=== PATIENT | female | born 1995 | race Caucasian/White ===

== ENCOUNTER 2024-08-29 08:58 | Outpatient (CLI) | payer OTHER, SELFPAY ==
--- NOTE | ~2024-08-29 | US_ITS ---
EXAMINATION: US venous doppler LE RT DATE: 08/29/2024 09:41 INDICATION: Right lower extremity edema TECHNIQUE: Grayscale ultrasound images without and with compression and Doppler ultrasound images of the right lower extremity veins were obtained. COMPARISON: None. FINDINGS: The visualized portions of right common femoral vein, profunda (deep) femoral vein, femoral vein, pop liteal vein, peroneal veins, posterior tibial veins, and greater saphenous vein outflow are patent. IMPRESSION: 1. No deep venous thrombosis within the right lower extremity as detailed above. Reviewed, dictated and finalized at location A. TYPESETTER IMPRESSION: 1. No deep venous thrombosis within the right lower extremity as detailed mita suero
--- OUTSIDE RECORDS SUMMARY | 2024-08-29 09:49 | XMS_ITS | Data Portability ---
Author Organization [facility] [place] Address [address] [place] [address] [place] [address] Care Team Providers Care [employer] Name Role Phone DAVID BIRMINGHAM Primary Care Provider Assessment Encounter Date Assessment Date Assessment LastModified by Organization Details LastModified Time 07/31/2024 07/31/2024 Patient is ___weeks . Discussed plan. Not available 07/31/2024 15:57:20 08/28/2024 08/28/2024 Patient is ___weeks . Discussed plan. Not available 08/28/2024 14:50:07 Plan of Treatment Reminders Order Date Submit Date Provider Last Modified By Organization Details Last Modified Time Details Appointments OB ROUTINE 2024 01:00P Rajan LEROY MD Not available Not available Not available Lab None recorded. Referral None recorded. Procedures None recorded. Surgeries None recorded. Imaging US, obstetric , follow-up 2024 025 [email or web address] [email or web address] [place] [facility] [place][note 2] [address], [address], [place], [address], 08/28/2024 21:14:59 US, obstetric , 2nd or 3rd trimester 2024 025 [email or web address] [email or web address] [place], [facility] [place]note 2] [address], [address], [place], [address], 08/02/2024 08:27:19 Medication Orders None recorded. Patient TargetsNo targets recorded. Patient InstructionsNo instructions recorded. Reason for Referral None Reported. Results Created Date Observation Date Name Description Value Unit Range Abnormal Flag Note LastModifiedBy Organization Detail LastModifiedTime 07/07/19 25 07/07/2024 US, obste tric, limit ed No observ ation record ed. [email or web address] [address], [place], [address], 07/08/2024 13:03:51 07/07/19 25 07/07/2024 US, obste tric, limit ed No observ ation record ed. [facility] [address], [place], [address], 07/07/2024 17:07:07 07/31/19 25 07/31/2024 US, obste tric, 2nd or 3rd trime ster No observ ation record ed. [address], [place], [address], 07/31/2024 17:58:51 07/31/19 25 07/31/2024 US, obste tric, follo w-up No observ ation record ed. [email or web address] [address], [place], [address], 08/04/2024 13:23:55 08/28/19 25 08/28/2024 US, obste tric, follo w-up No observ ation record ed. [address], [place], [address], 08/28/2024 18:29:50 08/28/19 25 08/28/2024 US, obste tric, follo w-up No observ ation record ed. [email or web address] [address], [place], [address], 08/28/2024 20:57:32 08/28/19 25 08/28/2024 US, obste tric, follo w-up No observ ation record ed. [email or web address] [address], [place], [address], 08/28/2024 22:50:03 Result Notes None recorded. Problems Name Problem SNOMED Code Status Onset Date Resolution Date Notes Provider Name and Address Organization Details Recorded Time 86901490 Active [address] [facility] 4 16:57:16 Acid reflux 408320421 Active Niranjan Leroy MD [address], [place], [address], [facility] 5 16:31:38 Marginal insertion of umbilical cord 04952139 Active serial growth Mahogany Jimenez [facility] 5 13:23:27 Edema of lower extremity 114869035 Active UNILATERA L, RIGHT SIDE Order faxed to Trey for Rpt venous doppler 08/28 scheduled Trey 08/29 09 referral faxed to [facility] 08/[address] [facility] 5 16:43:33 Problem Notes None recorded. Procedures Surgical History Date Name Laterality Status Provider Name and Address Organization Details Recorded Time 10/08/19 24 Date of Last Pap Smear completed [facility] 05/12/2024 13:54:02 11/05/19 21 Laparoscopy completed [facility] 12/11/2020 19:21:46 04/04/20 20 Dilation and Curettage completed [facility] 12/11/2020 19:21:22 08/05/19 19 extraction of wisdom tooth completed [facility] 12/11/2020 19:21:03 Imaging Results Imaging Date Name Status LastModified by Organiz ation Details LastModified Time 07/07/2024 US, obstetric, limited completed [email or web address] [address], [place], [address], 07/08/2024 13:03:51 07/07/2024 [facility], [facility] [address], [place], [address], 07/07/2024 17:07:07 07/31/2024 US, obstetric, 2nd or 3rd trimester completed [email or web address] [place] [address], [place], [address], 07/31/2024 17:58:51 07/31/2024 US, obstetric, follow-up completed [email or web address] [address], [place], [address], 08/04/2024 13:23:55 08/28/2024 US, obstetric, follow-up completed [email or web address] [place] [address], [place], [address], 08/28/2024 18:29:50 08/28/2024 US, obstetric, follow-up active [email or web address] [address], [place], [address], 08/28/2024 20:57:32 08/28/2024 US, obstetric, follow-up completed [email or web address] [address], [place], [address], 08/28/2024 22:50:03 Procedure Notes None recorded. Medical Equipment None Reported. Allergies No known drug allergies Medications Name Sig Start Date Stop Date Status Note LastModified by Organization Details LastModified Time cephalexin 250 mg capsule 07/07 completed Not Available Not Available Not Available hydrocodone 5 mg-acetamino phen 325 mg tablet TAKE 1 TABLET BY MOUTH EVERY 6 HOURS NEEDED FOR PAIN 03/25 completed Not Available Not Available Not Available acetaminophe n 500 mg tablet TAKE 2 TABLETS (1,000 MG TOTAL) BY MOUTH EVERY 6 (SIX) HOURS NEEDED. 03/25 completed Not Available Not Available Not Available buspirone 10 mg tablet 07/07 completed Not Available Not Available Not Available bupropion HCl 75 mg tablet TAKE 1 TABLET BY MOUTH EVERY DAY 07/07 completed Not Available Not Available Not Available ibuprofen 600 mg tablet TAKE 1 TABLET BY MOUTH EVERY 6 HOURS NEEDED 03/25 completed Not Available Not Available Not Available methylpredni solone 4 mg tablets in a dose pack 07/07 completed Not Available Not Available Not Available ondansetron 4 mg disintegrati ng tablet 07/07 completed Not Available Not Available Not Available buspirone 15 mg tablet TAKE 1/2 TABLET(S ) BY MOUTH THREE TIMES A DAY NEEDED 07/07 completed Not Available Not Available Not Available bupropion HCl XL 150 mg 24 hr tablet, extended release TAKE 1 TABLET(S ) ORAL EVERY DAY 03/25 completed Not Available Not Available Not Available 07/24 (28) 1 mg-20 mcg (21)/75 mg (7) tablet TAKE 1 TABLET BY MOUTH EVERY DAY 07/07 completed Not Available Not Available Not Available Colace active Not Available Not Availa ble Not Available active Not Available Not Avai lable Not Available bupropion HCl 03/25 completed Not Available Not Available Not Available Vitals Date Recorded Body weight Systolic blood pressure Diastolic blood pressure Provider Name and Address Organization Details Last Updated DateTime 07/31/2024 64115.4418 6 g 114 mm[Hg] 73 mm[Hg] [facility] 07/31/2024 15:58:25 Date Recorded Body weight Systolic blood pressure Diastolic blood pressure Provider Name and Address Organization Details Last Updated DateTime 08/15/2024 17826.8113 4 g 131 mm[Hg] 79 mm[Hg] [facility] 08/15/2024 11:39:29 Date Recorded Body weight Systolic blood pressure Diastolic blood pressure Provider Name and Address Organization Details Last Updated DateTime 08/28/2024 46625.9960 8 g 116 mm[Hg] 78 mm[Hg] [facility] 08/28/2024 14:50:59 Social History Question Answer Notes LastModified by Organizat ion Details LastModified Time Tobacco Smoking Status Current Every Day Smoker Scarlet Beltran [facility] 03/25/2021 10:37:51 Do You Have An Advance Directive? No [email or web address] Information not available 05/12/2024 What Is Your Level Of Alcohol Consumption? Occasional [email or web address] Information not available 12/11/2020 If You Are , What Was Your Level Of Alcohol Consumption Prior To ? None [email or web address] Information not available 03/25/2021 How Many Years Have You Consumed Alcohol? 7 Information not available 10/08/2023 Are You Blind Or Do You Have Difficulty Seeing? No [email or web address] Information not available 12/11/2020 What Is Your Level Of Caffeine Consumption? Occasional [email or web address] Information not available 12/11/2020 In The 14 Days Before Symptom Onset, Have You Had Close Contact With A Laboratory-confir med COVID-19 While That Case Was Ill? No [email or web address] Information not available 12/11/2020 In The 14 Days Before Symptom Onset, Have You Had Close Contact With A Person Who Is Under Investigation For COVID-19 While That Person Was Ill? No [email or web address] Information not available 12/11/2020 Have You Been To An Area Known To Be High Risk For COVID-19? No [email or web address] Information not available 12/11/2020 Are You Deaf Or Do You Have Serious Difficulty Hearing? No Information not available 12/11/2020 What Type Of Diet Are You Following? REGULAR [email or web address] Information not available 12/11/2020 Do You Or Have You Ever Used E-cigarettes Or Vape? Current User Of Electronic Cigarettes [email or web address] Information not available 03/25/2021 What Is The Highest Grade Or Level Of School You Have Completed Or The Highest Degree You Have Received? 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 No Information not available 10/08/2023 Have You Ever Been Counseled For Unhealthy Alcohol Use? No [email or web address] Information not available 03/25/2021 Do You Use Protection During Sex? No [email or web address] Information not available 03/25/2021 Do You Use Your Seat Belt Or Car Seat Routinely? Yes [email or web address] Information not available 12/11/2020 Do You Have Smoke And Carbon Monoxide Detectors In Your Home? Yes [email or web address] Information not available 12/11/2020 At What Age Did You Start Smoking Tobacco? 16 Information not available 10/08/2023 Do You Or Have You Ever Used Smokeless Tobacco? Never Used Smokeless Tobacco [email or web address] Information not available 03/25/2021 How Much Tobacco Do You Smoke? 0.5 PPD Information not available 10/08/2023 Do You Feel Stressed (tense, Restless, Nervous, Or Anxious, Or Unable To Sleep At Night)? [id number] Information not available 10/08/2023 Do You Use Any Illicit Or Recreational Drugs? No [email or web address] Information not available 12/11/2020 Do You Use Sunscreen Routinely? Yes [email or web address] Information not available 12/11/2020 Has Tobacco Cessation Counseling Been Provided? No [email or web address] Information not available 03/25/2021 Have You Used IV Drugs? No [email or web address] Information not available 03/25/2021 Do You Or Have You Ever Used Any Other Forms Of Tobacco Or Nicotine? Yes [email or web address] Information not available 03/25/2021 Sex: Unknown Functional Status Question Answer Note LastModified by Organizat ion Details LastModified Time Do you have difficulty walking or climbing stairs? No Information not available 07/07/2022 Are you able to walk? YESWOREST [email or web address] Information not available 12/11/2020 Are you able to care for yourself? Yes Information not available 07/07/2022 Do you have difficulty dressing or bathing? No Information not available 07/07/2022 What is your exercise level? Occasional [email or web address] Information not available 12/11/2020 Mental Status None recorded. Family History Relationship Description Onset Age of this Age Resolved Age Notes LastModified by Organization Details LastModified Time Maternal Grandmother Malignant tumor of colon age unsure [email or web address] Not available 12/11/2020 19:14:43 Maternal Grandmother Diabetes mellitus [email or web address] Not available 12/11 19:18:00 Paternal Uncle Diabetes mellitus [email or web address] Not available 12/11 19:18:11 Paternal Uncle Marc lynne Not available 2023 15:41:43 Mother Anxiety disorder [email or web address] Not available 12/11 19:19:14 Mother Depressive disorder [email or web address] Not available 12/11 19:19:19 Maternal Aunt Multiple sclerosis [email or web address] Not available 12/11 19:19:37 Medical History Condition Response Allergies (Food, seasonal, environmental ) N Other Y Breast Cancer N Drug/Latex Allergies/Reactions N Blood Transfusion N Dermatologic Disorders N Lung Disease N Defects or Inherited Disease N Breast Problem N Gestational Diabetes N Hematologic disorders N Anesthesia Complications N History of STI N Deep Vein Thrombosis N Polycystic ovary syndrome N Anxiety Disorder Y Autoimmune disease N Arthritis N Infertility N Polyps N Acid Reflux (GERD) N History of abnormal pap N Cancer N Stroke N Varicosities N Neurologic/Epilepsy N Endometriosis N High Cholesterol N Headaches N Fibromyalgia N Kidney Disease N Heart Problems N Kidney or Bladder Problems N Thyroid Problems N GI Problems N Eating Disorder N Anemia N Art (IVF or FET) N Psychiatric Illness N Ovarian Cancer N Diabetes N Pulmonary (TB, Asthma) N Hepatitis/Liver Disease N No Past Medical History N Eczema N Urinary Tract Infection N Abuse/Domestic Violence N Asthma N Trauma/Violence N Depression/ depression Y Heart Disease N Pre-Eclampsia N Hypertension N Osteoporosis N Thrombophilias N Gynecological History Statement/Question Response Date of Last Mammogram Flow Moderate Date of LMP 03/20/2024 On BCP's at Conception? N Was last menstrual period normal Y STIs/STDs N HPV Vaccine Y Duration of Flow (days) 3 Current Control Method Are cycles usually normal Y Frequency of Cycle (Q days) 27 Sexually Active? Y Menses Monthly Y Age of first menstrual cycle 13 Date of Last Pap Smear 10/08/2023 Sexual Problems? N Desired Control Method LMP Definite Obstetrics History GPAL:G 3 P 0 0 2 0 Type Value Spontaneous 1 Living 0 Ectopics 1 Total 3 Past Encounters Encounter ID Performer Location Encounter Start Date Encounter Closed Date Diagnosis/Indication Diagnosis SNOMED-CT Code Diagnosis ICD10 Code Diagnosis Note [id number] Karie Cerda Agata [facility] [address],[place] [address] 12/11/2020 15:03:37 12/11/2020 16:52:07 Contraception care management 949396511 Z30.9 [id number] Karie Cerda Agata [facility] [address],[place] [address] 03/25/2021 10:29:58 03/25/2021 12:03:09 Contraception care management 622299300 Z30.9 [id number] Ema Goldstein [facility] [address],[place] [address] 07/07/2022 14:52:06 07/07/2022 15:47:35 Pain in pelvis 11234361 R10.2 Today we reviewed the various causes of pelvic pain in-depthUP T (-) todayUA WNLCurrent ly on her periodBhcg orderedPel odin u/s orderedWe discussed her hx of ectopic, need to have bhcg done today to confirm (-) UPTPatient agrees to this plan. Strict ED precaution s discussed (worsening pains, heavy vaginal bleeding, flu-like symptoms, etc). Her pain is minimal right now, no acute distress.W ill update patient with bhcg result when available tomorrowRT C for pelvic u/s and f/u appointmen t Time spent in visit is a total of 25 mins with at least 50% of visit consisting of counseling and review of plan of care. Venereal d isease screening 127282564 Z11.3 [id number] [facility] [address],[place] [address] 07/20/2022 14:01:43 07/20/2022 14:44:39 Pain in pelvis 23105959 R10.2 [id number] Ema Goldstein [facility] [place] [address],[place] [address] 07/27/2022 14:25:22 07/27/2022 16:10:45 Pain in pelvis 45595199 R10.2 Today we reviewed recent TVUS - normalPelv ic pain has mostly resolved. We discussed BC options in-depth. Declines at this time. Meghan gray TTC in the near future. Encouraged daily PNV.We discussed hx of endometrio sis, offered MD consult. Declined at this timeShe will notify the office if she changes her mind and desires BC or MD consultSta rt daily PNVRTC for WWE or sooner if needed Time spent in visit is a total of 15 mins with at least 50% of visit consisting of counseling and review of plan of care. [id number] CHINA Hatfield [place] [address] [address] 10/08/2023 12:02:18 10/08/2023 14:40:15 Gynecologic examination 37434478 Z01.419 WWEpap updateddec lined STI screenenco uraged annual exam with PCP Take Calcium with Vitamin D daily if not receiving in daily diet.It is strongly advised to have an annual flu shot and up can obtain at most pharmacies . If you have not had a TDap shot in the last 10 years you should obtain one as well. Discussed with patient & provided with informatio n regarding Gardisil vaccine to prevent the 4 strains for HPV that cause cervical cancer if under age 26. Encourage safe sexual practices, to use condoms and limit partners if not already in a monogamous relationsh ip.Do monthly self breast exams. BRCA testing is now available for patients with strong genetic history of female cancer. If interested contact the office. Engage in regular exercise. Avoid tobacco and illicit drugs. This lifestyle behavior pattern will lead to less health conditions and longer life span. If BMI greater than 25 dietary consult advised. Patient received above instructio ns, and questions have been answered. If you have any questions please call or respond to this email. Patient was made aware of the patient portal and may obtain a paper copy of today's plan if desired. Breast lump 62067769 N63 .0 left breast u/s order given to pt [id number] Marjorie Fernandez [place] [address] [address] 04/28/2024 12:32:47 05/01/2024 10:14:42 Uncertain viability of 426910068 O36.80X9 Z3A.01 [id number] [facility] [address],[place] [address] 05/12/2024 14:19:40 05/12/2024 14:50:39 [id number] [facility] [address],[place] [address] 05/12/2024 14:19:54 05/12/2024 16:59:32 Venereal disease screening 440591770 Z11.3 Amenorrhea 63174626 N91. 2 [id number] [facility] [address],[place] [address] 06/06/2024 15:41:35 06/06/2024 16:42:54 screening 002482540 Z36.82 Z3A.11 [id number] HEATH SUN MD [place] [address],[place] [address] 06/06/2024 15:42:31 06/06/2024 18:21:27 Routine care 670526044 Z34.90 [id number] Niranjan Leroy MD [place] [address],[place] [address] 07/07/2024 11:41:25 07/07/2024 13:16:11 Routine care 667561716 Z34.90 [id number] Marjorie [facility] [address],[place] [address] 07/07/2024 11:53:34 07/07/2024 13:36:31 Abdominal pain in 123783880 O99.891 Z3A.15 [id number] [facility] [address],[place] [address] 07/31/2024 14:27:44 07/31/2024 15:45:54 screening for malformation 668191102 Z36.3 Z3A.19 [id number] Niranjan Leroy MD [place] [address],[place] [address] 07/31/2024 14:28:07 07/31/2024 16:41:53 Routine care 668466470 Z34.90 [id number] Niranjan Leroy MD [place] [address],[facility] [place] [address] 08/15/2024 10:56:59 08/15/2024 12:29:56 Routine care 193271540 Z34.90 [id number] Mayra Villagomez [place] [address],[facility] [place] [address] 08/28/2024 13:50:38 08/28/2024 14:33:47 Placental condition affecting management of mother 302529729 O43.102 Z36.2 Z3A.23 [id number] Niranjan Leroy MD [place] [address],[place] [address] 08/28/2024 13:51:41 08/28/2024 15:28:10 Routine care 289991661 Z34.90 Health Concerns Section Related Observation LastModified by Organization Detai ls LastModified Time None Recorded Concern Status LastModified by Organization Details LastModified Time None Recorded Advance Directives Directive N: Payers Encounter Date Sequence Insurance Name Policy Number Policy Corona Covered Member ID Corona Member ID Guarantor Name 07/31/2024 1 [facility] [employer] [employer] Gerri Loaiza [id number] OI Gerri Loaiza 07/31/2024 1 [facility] [employer] Gerri Loaiza [id number] OI Gerri Loaiza 08/15/2024 1 [facility] [employer] Gerri Loaiza [id number] OI Gerri Loaiza 08/28/2024 1 [facility] [employer] Gerri Loaiza [id number] OI Gerri Loaiza 08/28/2024 1 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 12/12/19 21 1 CLOSED Fetus Data First Name Last Name Admitted to NICU Weight (g) Sex Living Outcome Pediatric Complications Fetus ID Race Codes Race Delivery Type , Spontane ous [id number] Mack Calculation Initial Mack Date Initial Exam Date Initial Exam Provider Initial Ultrasound Date Last Menstrual Period Date Ultra Sound Weeks Gestation 0 Eighteen To Twenty Week Mack Update Ultra Sound Date Fundal Height At Umbil Quickening Date Ultra Sound Latest Weeks Gestation Final Mack Confirmed By Final Mack Confirmed Date Final Mack Date Ultra Sound Latest Days Gestation 0 0 Menstrual History Last Menstrual Date Menses Monthly On Bcp Conception Prior Menses Frequency Hcg Plus Date Menarche Onset Age Delivery Information Delivery Date Delivery Type Labor Anesthesia Weeks Gestation Incision Type Labor Labor Length Hrs Delivered By Post Complications Tubal Sterilization Discharge Date Comments 0 Discharge Information Feeding Method Contraceptive Method Maternal HG B and HCT Levels Ob Episode Information Episode Created Date Number of Fetuses Patient Bloodtype Patient rh Status Prepregnancy Weight lbs Domestic Partner Domestic Partner Phone Father Name [employer] 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 Status 12/12/19 21 1 CLOSED Fetus Data First Name Last Name Admitted to NICU Weight (g) Sex Living Outcome Pediatric Complications Fetus ID Race Codes Race Delivery Type Ectopic [id number] Mack Calculation Initial Mack Date Initial Exam Date Initial Exam Provider Initial Ultrasound Date Last Menstrual Period Date Ultra Sound Weeks Gestation 0 Eighteen To Twenty Week Mack Update Ultra Sound Date Fundal Height At Umbil Quickening Date Ultra Sound Latest Weeks Gestation Final Mack Confirmed By Final Mack Confirmed Date Final Mack Date Ultra Sound Latest Days Gestation 0 0 Menstrual History Last Menstrual Date Menses Monthly On Bcp Conception Prior Menses Frequency Hcg Plus Date Menarche Onset Age Delivery Information Delivery Date Delivery Type Labor Anesthesia Weeks Gestation Incision Type Labor Labor Length Hrs Delivered By Post Complications Tubal Sterilization Discharge Date Comments 1 Discharge Information Feeding Method Contraceptive Method Maternal HG B and HCT Levels Ob Episode Information Episode Created Date Number of Fetuses Patient Bloodtype Patient rh Status Prepregnancy Weight lbs Domestic Partner Domestic Partner Phone Father Name Footwear 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 Status 06/06/20 24 1 O Positive 170 Keagan Josse OPEN Fetus Data First Name Last Name Admitted to NICU Weight (g) Sex Living Outcome Pediatric Complications Fetus ID Race Codes Race Delivery Type [id number] Problems Problem Notes prominent stomach on USvenou s doppler wnl 2 [facility] repeat doppler/ Referral [facility] faxed 08/28 Problem Name Start Date End Date Resolution Snomed Code Not e Marginal insertion of umbilical cord 96553248 serial growth Edema of lower extremity 895418785 UNILATERAL, RIG HT SIDE Order faxed to Trey for Rpt venous doppler 08/28 scheduled Trey 08/29 0900referral faxed to [facility] 08/28 Acid reflux 881622429 Mack Calculation Initial Mack Date Initial Exam Date Initial Exam Provider Initial Ultrasound Date Last Menstrual Period Date Ultra Sound Weeks Gestation 12/25/2024 06/06/2024 05/12/2024 03/20/2024 8 Eighteen To Twenty Week Mack Update Ultra Sound Date Fundal Height At Umbil Quickening Date Ultra Sound Latest Weeks Gestation Final Mack Confirmed By Final Mack Confirmed Date Final Mack Date Ultra Sound Latest Days Gestation 0 [id number] 06/06/2024 12/26/19 25 0 Pre- Flowsheet Flowsheet Date 06/06/2024 Kelly Score Blood Edema Fundus Height Fundus Units Glucose Ketones Leukocytes Nitrite Labor Signs Protein Cervic Dilation Cervic Effacement Cervic Station Type Weight in lbs Pre/Post Dialysis Refused Weight 170.285373762767 BP Diastolic BP Location Tested BP Systolic BP Type 75 L arm 116 sitting Fetus Heart Rate Present A 167 Fetus Movement Comments Patient presents to [facility] care. Overall feeling well, no cramping, bleeding or nausea. Some constipation, improved with colace. complicated by hx of ectopic in 2019, otherwise no PMH/PSH. Nt/NB wnl, desire NIPT. Will draw with new OB labs today. RTC 4 weeks for routine care. Flowsheet Date 07/07/2024 Kelly Score Blood Edema Fundus Height Fundus Units Glucose Ketones Leukocytes Nitrite Labor Signs Protein Cervic Dilation Cervic Effacement Cervic Station Type Weight in lbs Pre/Post Dialysis Refused BP Diastolic BP Location Tested BP Systolic BP Type Fetus Heart Rate Present Fetus Movement Comments Flowsheet Date 07/07/2024 Kelly Score Blood Edema Fundus Height Fundus Units Glucose Ketones Leukocytes Nitrite Labor Signs Protein Cervic Dilation Cervic Effacement Cervic Station Type Weight in lbs Pre/Post Dialysis Refused 177.027041522732 BP Diastolic BP Location Tested BP Systolic BP Type 87 L arm 129 sitting Fetus Heart Rate Present A 144 Fetus Movement A No Comments fell down a couple of stairs today. No abdominal trauma. Fifteen week gestation, normal ultrasound today, no vaginal bleeding or cramping. Flowsheet Date 07/31/2024 Kelly Score Blood Edema Fundus Height Fundus Units Glucose Ketones Leukocytes Nitrite Labor Signs Protein Cervic Dilation Cervic Effacement Cervic Station Type Weight in lbs Pre/Post Dialysis Refused BP Diastolic BP Location Tested BP Systolic BP Type Fetus Heart Rate Present Fetus Movement Comments Flowsheet Date 07/31/2024 Kelly Score Blood Edema Fundus Height Fundus Units Glucose Ketones Leukocytes Nitrite Labor Signs Protein Cervic Dilation Cervic Effacement Cervic Station Type Weight in lbs Pre/Post Dialysis Refused 178.517541604635 BP Diastolic BP Location Tested BP Systolic BP Type 73 L arm 114 sitting Fetus Heart Rate Present A 144 Fetus Movement A Yes Comments no complaints, no problems, routine care, no contractions, no vaginal bleeding, no loss of fluid, no cramping Flowsheet Date 08/15/2024 Kelly Score Blood Edema Fundus Height Fundus Units Glucose Ketones Leukocytes Nitrite Labor Signs Protein Cervic Dilation Cervic Effacement Cervic Station Type Weight in lbs Pre/Post Dialysis Refused 182.971243562007 BP Diastolic BP Location Tested BP Systolic BP Type 79 L arm 131 sitting Fetus Heart Rate Present A 150 Fetus Movement A Yes Comments no complaints, no problems, routine care, no contractions, no vaginal bleeding, no loss of fluid, no cramping. ER visit for unilateral swelling of lower extremity, Dopplers were normal, s Flowsheet Date 08/28/2024 Kelly Score Blood Edema Fundus Height Fundus Units Glucose Ketones Leukocytes Nitrite Labor Signs Protein Cervic Dilation Cervic Effacement Cervic Station Type Weight in lbs Pre/Post Dialysis Refused BP Diastolic BP Location Tested BP Systolic BP Type Fetus Heart Rate Present Fetus Movement Comments Flowsheet Date 08/28/2024 Kelly Score Blood Edema Fundus Height Fundus Units Glucose Ketones Leukocytes Nitrite Labor Signs Protein Cervic Dilation Cervic Effacement Cervic Station Type Weight in lbs Pre/Post Dialysis Refused 184.667849611039 BP Diastolic BP Location Tested BP Systolic BP Type 78 L arm 116 sitting Fetus Heart Rate Present A 145 Fetus Movement A Yes Comments Unilateral leg swelling on t he right persist. Repeat Dopplers and referred to [facility]. Menstrual History Last Menstrual Date Menses Monthly On Bcp Conception Prior Menses Frequency Hcg Plus Date Menarche Onset Age 0903/20/2024 Delivery Information Delivery Date Delivery Type Labor Anesthesia Weeks Gestation Incision Type Labor Labor Length Hrs Delivered By Post Complications Tubal Sterilization Discharge Date Comments Discharge Information Feeding Method Contraceptive Method Maternal HG B and HCT Levels
--- OUTSIDE RECORDS SUMMARY | 2024-08-29 09:49 | XMS_ITS | Encounter Summary ---
Author Organization [facility] Address [facility] [place] [address] Care Team Providers Care Clerical Administrative Assistant Name Role Phone Niall Tate MD Primary Care Provider [phone] Niranjan Leroy MD Primary Care Provider [phone] Encounter Details Date Type Department Care Team (Late st Contact Info) Description 04/23/2020 Prep for Procedure [facility] [address] [place] [address] Alexa Thompson MD [address] [place] [address] Social History Tobacco Use Types Packs/Day Years Used Date Smoking Tobacco: Every Day Cigarettes 1 7 Electronic Cigarettes Smokeless Tobacco: Never Alcohol Use Standard Drinks/Week Comments Yes 0 (1 standard drink = 0.6 oz pur e alcohol) Humiliation, Afraid, Rape, and Kick questionnair e Answer Date Recorded Within the last year, have y ou been afraid of your partner or ex-partner? Patient declined 04/26/2020 Within the last year, have y ou been humiliated or emotionally abused in other ways by your partner or ex-partner? Patient declined 04/26/2020 Within the last year, have y ou been kicked, hit, slapped, or otherwise physically hurt by your partner or ex-partner? Patient declined 04/26/2020 Within the last year, have y ou been raped or forced to have any kind of sexual activity by your partner or ex-partner? Patient declined 04/26/2020 Social Connection and Isolation Panel [NHANES] A nswer Date Recorded In a typical week, how many times do you talk on the phone with family, friends, or neighbors? Patient declined 04/26/2020 How often do you get togethe r with friends or relatives? Patient declined 04/26/2020 How often do you attend roman catholic or confucianist serv ices? Patient declined 04/26/2020 Do you belong to any clubs o r organizations such as roman catholic groups, unions, fraternal or athletic groups, or school groups? Patient declined 04/26/2020 How often do you attend meet ings of the clubs or organizations you belong to? Patient declined 04/26/2020 Are you , , di vorced, , never , or living with a partner? Patient declined 04/26/2020 Overall Financial Resource Strain (CARDIA) Answe r Date Recorded How hard is it for you to pa y for the very basics like food, housing, medical care, and heating? Not hard at all 04/26/2020 [facility] of Occupat ional Health - Occupational Stress Questionnaire Answer Date Recorded Do you feel stress - tense, restless, nervous, or anxious, or unable to sleep at night because your mind is troubled all the time - these days? Not at all 04/26/2020 Exercise Vital Sign Answer Date Recorde d On average, how many days pe r week do you engage in moderate to strenuous exercise (like a brisk walk)? 0 days 04/26/2020 On average, how many minutes do you engage in exercise at this level? 0 min 04/26/2020 Hunger Vital Sign Answer Date Recorded Within the past 12 months, y ou worried that your food would run out before you got the money to buy more. Never true 04/26/20 20 Within the past 12 months, t he food you bought just didn't last and you didn't have money to get more. Never true 04/26/2020 PRAPARE - Transportation Answer Date Re corded In the past 12 months, has l ack of transportation kept you from medical appointments or from getting medications? No 04/05 In the past 12 months, has l ack of transportation kept you from meetings, work, or from getting things needed for daily living? No 04/26/2020 Comments No Sex and Gender Information Value Date Recorded Sex Assigned at Female 08/11/2024 11:03 PM [employer] Legal Sex Female 8:08 AM CDT Gender Identity Not on file Sexual Orientation Not on file COVID-19 Exposure Response Date Recorded In the last month, have you been in contact with someone who was confirmed or suspected to have Coronavirus / COVID-19? No / Unsure 04/26/2020 10:25 AM CDT documented as of this encounter Plan of Treatment Not on file documented as of this encounter Results * PRE-SURGICAL/PRE-PROCEDURE CORONAVIRUS (COVID 19) (04/23/2020 1:55 PM CDT) CORONAVIRUS SARS COV 2 PCR (RESP) NOT DETECTED NOT DETECTED 04/24/2020 10:11 PM CDT [email or web address] [facility] Comment: A Not Detected (negative) test result for this test means that SARS- CoV-2 RNA was not present in the specimen above the limit of detection. A negative result does not rule out the possibility of COVID-19 and should not be used as the sole basis for treatment or patient management decisions. If COVID-19 is still suspected, based on exposure history together with other clinical findings, re-testing should be considered in consultation with public health authorities. Laboratory test results should always be considered in the context of clinical observations and epidemiological data in making a final diagnosis and patient management decisions. Please review the Fact Sheets and FDA authorized labeling available for health care providers and patients using the following websites: https://www.[employer].com/home/Covid-19/HCP/Quest[employer]D/fact- sheet.html https://www.[employer]/home/Covid-19/Patients/ QuestIVD/fact-sheet.html This test has been authorized by the FDA under an Emergency Use Authorization (EUA) for use by authorized laboratories. Due to the current public health emergency, [facility] is receiving a high volume of samples from a wide variety of swabs and media for COVID-19 testing. In order to serve patients during this public health crisis, samples from appropriate clinical sources are being tested. Negative test results derived from specimens received in non-commercially manufactured viral collection and transport media, or in media and sample collection kits not yet authorized by FDA for COVID-19 testing should be cautiously evaluated and the patient potentially subjected to extra precautions such as additional clinical monitoring, including collection of an additional specimen. Methodology: Nucleic Acid Amplification Test (NAAT) includes RT-PCR or TMA Additional information about COVID-19 can be found at the [facility] [employer] [facility] website: www.[employer]/Covid19. Test performed at [facility] [address] [facility] [place] [address] Director: SEGUNDO GARCIA DO,MPH FIRST TEST YES 04/23/2020 1:55 PM CDT [facility] EMPLOYED IN HEALTHCARE NO 04/23/2020 1:55 PM CDT [facility] SYMPTOMATIC DEFINED BY CDC NO 04/23/2020 1:55 PM CDT [facility] DATE OF SYMPTOM ONSET UNKNOWN 04/23/2020 2:49 PM CDT [facility] HOSPITALIZATION STATUS NO 04/23/2020 1:55 PM CDT [facility] PATIENT IN ICU NO 04/23/2020 1:55 PM CDT [facility] RESIDENT OF [facility] NO 04/23/2020 1:55 PM CDT [facility] NOT 04/23/2020 1:55 PM CDT [facility] PATIENT'S RACE WHITE OR 04/23/2020 1:55 PM CDT [facility] ETHNICITY NONHISPANIC 04/23/2020 1:55 PM CDT [facility] SOURCE (QST) NASOPHARYNGEAL SWAB 04/23/2020 1:55 PM CDT [facility] NASOPHARYNGEAL SWAB / Unknown 04/23/2020 1:55 PM CDT us Alexa Thompson MD MICROBIOLOGY - GENERAL ORDERAB LES Final Result [facility] [address] [place] [address], [facility] [address] [place] [address], documented in this encounter Visit Diagnoses Diagnosis Pre-op testing- Primary Preoperative examination, unspecified documented in this encounter Additional Health Concerns Infection Onset Date Last Indicated Resolved Time COVID-19 Rule Out 04/23/2020 04/23/2020 04/24/2020 10:11 PM CDT COVID-19 Rule Out 01/29/2022 01/29/2022 01/29/2022 2:06 PM CDT COVID-19 Rule Out 01/31/2022 01/29/2022 01/31/2022 2:42 PM CDT COVID-19 Rule Out 08/01/2022 08/01/2022 08/01/2022 10:53 AM [employer] documented as of this encounter Care Teams Clerical Administrative Assistant Relationship Specialty Start Date End Date Niall Tate MD [address] [place] [id number] PCP - General PEDIATRICS 08/29/19 08/10/24 Niranjan Leroy MD [address] [place] [address] PCP - General ENVIRONMENTAL ADVISER ONCOLOGY 08/11/24 documented as of this encounter
--- OUTSIDE RECORDS SUMMARY | 2024-08-29 09:49 | XMS_ITS | Clinical Summary ---
Author Organization [facility] Address [facility] [place] [address] Care Team Providers Care Global Regulatory Lead Name Role Phone Niranjan Leroy MD Primary Care Provider [phone] Allergies No known active allergies Medications No known medications Active Problems Problem Noted Date Diagnosed Date Ectopic ([facility]/HCC) 11/04/2020 S/P laparoscopy 11/04/2020 Comments Yes Encounters Date Type Department Care Team Description 08/11/2024 10:53 PM ROD POINTER - 08/12/2024 1:26 AM [facility] Emergency [facility] Emergency Room [address] [place] [address] Jose Norris MD Leg Swelling (right) Discharge Disposition: Home or Self Care (Routine Discharge) 08/11/2024 Travel from Last 3 Months Family History Medical History Relation Comments Diabetes Maternal Grandmother Relation Status Comments Maternal Grandmother Social History Tobacco Use Types Packs/Day Years Used Date Smoking Tobacco: Every Day Cigarettes 1 7 Electronic Cigarettes Smokeless Tobacco: Never Tobacco Cessation:Ready to Q uit: No; Counseling Given: Yes Alcohol Use Standard Drinks/Week Comments Yes 0 [...] declined 04/26/2020 How often do you attend taoism or rastafari serv ices? Patient declined 04/26/2020 Do you belong to any clubs o r organizations such as taoism groups, unions, fraternal or athletic groups, or [...] and heating? Not hard at all 04/26/2020 [facility] [place] of Occupat ional Health - Occupational Stress [...] needed for daily living? No 04/26/2020 Comments Yes Sex and Gender Information Value Date Recorded Sex Assigned at Female 08/11/2024 11:03 PM ROD POINTER Legal Sex Female 8:08 AM CDT Gender Identity Not on file Sexual Orientation Not on file Last Filed Vital Signs Vital Sign Reading Time Taken Comments Blood Pressure 126/61 08/12/2024 1:25 AM ROD POINTER Pulse 74 08/12/2024 1:25 AM ROD POINTER Temperature 37.1 C (98.8 F) 08/12/2024 1:25 AM ROD POINTER Respiratory Rate 18 08/12/2024 1:25 AM ROD POINTER Oxygen Saturation 97% 08/12/2024 1:25 AM ROD POINTER Inhaled Oxygen Concentration - - Weight 80.7 kg (178 lb) 08/11/2024 11:00 PM ROD POINTER Height 167.6 cm (5' 6 ) 08/11/2024 11:00 PM ROD POINTER Body Mass Index 28.73 08/11/2024 11:00 PM ROD POINTER Plan of Treatment Health Maintenance Due Date Last Done Comments Annual Physical 09/07/1999 Pneumococcal Vaccine: Pediatrics (0 to 5 Years) and At-Risk Patients (6 to 64 Years) (1 of 2 - PCV) 2002 HPV Vaccines (2 - 2-dose series) 01/14/2012 07/16/2011 DTaP, Tdap and Td Vaccines (7 - Td or Tdap) 07/16/2021 07/16/2011, 12/05/2001, 12/10/1997, Additional history exists COVID-19 Vaccine ( season) 2024 Influenza Adult (#1) 2024 10/08/2011 Cervical Cancer Screening Pap Smear (Age 21 to 29) Every 3 Years 05/12/2027 05/12/2024, 10/08/2023, 07/07/2022, Additional history exists Cervical Cancer Screening 05/12/2027 RSV Immunization or 60+ Years (1 - 1-dose 75+ series) 09/07/2071 Hepatitis B Vaccines Completed 09/17/1997, 1996, 1996 Meningococcal Vaccine Aged Out 07/16/2011 No todd miriam eligible based on patient's age to complete this topic Hepatitis C Completed 06/06/2024, 06/06/2024 Meningococcal B Vaccine Aged Out No l onger eligible based on patient's age to complete this topic RSV Immunizations Under 20 Months Aged Out No longer eligible based on patient's age to complete this topic Procedures Procedure Name Priority Date/Time Associated Diagnosis Comments USV GABI DUPLEX LOW EXT RT STAT 08/12/2024 1:03 AM ROD POINTER D-DIMER, QUANTITATIVE STAT 08/11/2024 11:30 PM ROD POINTER CHLAM/GC/TRICHOMONAS PROFILE Routine 03/08/2018 6:19 AM CDT from Last 3 Months or Most Recently Relevant to Health Maintenance Results * USV GABI DUPLEX LOW EXT RT (08/12/2024 1:03 AM ROD POINTER) Anatomical Region Laterality Modality Extremity Ultrasound 08/12/2024 1:06 AM ROD POINTER Impressions 08/12/2024 1:11 AM ROD POINTER IMPRESSION: 1. No evidence of deep venous thrombosis in the imaged right lower extremity or in the limited imaged left common femoral vein. 2. Benign-appearing lymph nodes in the right groin as noted above.. Referred By: Interpreted By: Martha Perez MD, 08/12/2024 1:06 AM Narrative 08/12/2024 1:11 AM ROD POINTER [facility] [address] [facility] [place] [address] EXAMINATION: Duplex Doppler Ultrasound exam of the right lower extremity, grayscale, color-flow, and spectral analysis imaging INDICATION: Right leg swelling and redness for 2 days. Elevated d-dimer of 1051. COMPARISON: None. FINDINGS: The imaged distal right common femoral, deep femoral, superficial femoral, and popliteal veins, and the imaged segments of the right posterior tibial and peroneal veins show no evidence of intraluminal clot with normal compressibility and augmentation with distal compression. The limited imaged right greater saphenous vein demonstrates no evidence of intraluminal clot, with normal compressibility at the saphenofemoral junction. Incidental finding of a few small benign-appearing lymph nodes in the right groin, all demonstrating a smooth thin cortex and prominent benign fatty hilum with normal vascularity, with the largest measuring 1.8 x 0.9 x 1.3 cm. Spontaneous phasic venous flow with normal augmentation is seen in the imaged left common femoral vein without evidence of deep venous thrombus in the limited imaged left common femoral vein. Procedure Note Martha Perez MD - 08/12/2024 [facility] [address] [place] [address] EXAMINATION: Duplex Doppler Ultrasound exam of the right lower extremity,grayscale, color-flow, and spectral analysis imaging INDICATION: Right leg swelling and redness for 2 days. Elevated d-dimerof 1051. COMPARISON: None. FINDINGS: The imaged distal right common femoral, deep femoral, superficial femoral,and popliteal veins, and the imaged segments of the right posterior tibialand peroneal veins show no evidence of intraluminal clot with normalcompressibility and augmentation with distal compression. The limitedimaged right greater saphenous vein demonstrates no evidence ofintraluminal clot, with normal compressibility at the saphenofemoraljunction. Incidental finding of a few small benign-appearing lymph nodesin the right groin, all demonstrating a smooth thin cortex and prominentbenign fatty hilum with normal vascularity, with the largest measuring 1.8x 0.9 x 1.3 cm. Spontaneous phasic venous flow with normal augmentation is seen in theimaged left common femoral vein without evidence of deep venous thrombusin the limited imaged left common femoral vein. IMPRESSION: 1. No evidence of deep venous thrombosis in the imaged right lowerextremity or in the limited imaged left common femoral vein. 2. Benign-appearing lymph nodes in the right groin as noted above.. Referred By: Interpreted By: Martha Perez MD, 08/12/2024 1:06 AM Jose Norris MD [facility] Final Result * (ABNORMAL) D-DIMER, QUANTITATIVE (08/11/2024 11:30 PM ROD POINTER) [facility] D-DIMER 1,051(H) 0 - 500 ng{FEU}/mL 08/11/2024 11:52 PM ROD POINTER [facility] Comment: D-Dimer values less than or equal to 500 ng/mL FEU have a negative predictive value of >95% for exclusion of deep vein thrombosis and pulmonary embolism. In patients over 50 (who tend to have higher normal baseline D-Dimer values), recent studies suggest age-adjusted D-Dimer cutoff values (calculated as: age [years] x 10 ng/mL) result in equivalent outcomes and no additional false negative findings. 08/11/2024 11:3 0 PM ROD POINTER Jose Norris MD LABORATORY Final Result [facility] [address] [place] [address], * CHLAM/GC/TRICHOMONAS PROFILE (03/08/2018 6:19 AM CDT) [facility] CHLAMYDIA TRACHOMATIS RNA TMA Not Detected Not Detected 03/10/2018 10:16 AM CDT [employer] SHANNON MCKAY Comment:This test was perfor med using the APTIMA COMBO2(R)Assay (GEN-PROBE(R)). N.GONORRHOEAE RNA TMA (QST) Not Detected Not Detected 03/10/2018 10:16 AM CDT [facility] SHANNON MCKAY Comment: This test was performed using the APTIMA COMBO2(R)Assay (GEN-PROBE(R)).The analytical performance characteristics of thisassay, when used to test SurePath(R) specimens havebeen determined by [employer]. TRICHOMONAS Not Detected Not Detected 03/10/2018 10:16 AM CDT [employer] SHANNON MCKAY Comment: This test was performed using the APTIMA Trichomonasvaginalis Assay (Gen-Probe).For additional information, please refer tohttp://education.Innovate/Protect.Monstrous/faq/Trichomonastma (This link is being providedfor information/educational purposes only).The performance characteristics of this assay whenused to test SurePath(R) specimens have beendetermined by [facility] [place], [place]. Performance characteristics refer tothe analytical performance of the test.Test Performed by [facility] [employer] [place],[address] [place], [place] [address]Nmefottreji Cai M.D., Ph.D., Director of [phone], [facility] [id number] GENITAL SWAB / Unknown 03/08/2018 6:19 AM CDT 03/08/2018 6:19 AM CDT us Generic Conversion Md [facility] MICROBIOLOGY - GENERAL ORDERABLES Final Result [facility] [address], [place] [phone] from Last 3 Months or Most Recently Relevant to Health Maintenance Insurance vocaltap [facility]ESS [facility] Advance Directives * Full Code (Latest Code Status on File) Date Activated Date Inactivated Comments 04/26/2020 12:34 PM 04/26/2020 3:47 PM Care Teams Global Regulatory Lead Relationship Specialty Start Date End Date Niranjan Leroy MD [address] [place] [address] PCP - General PLANNER SCHEDULER ONCOLOGY 08/11/24
--- OUTSIDE RECORDS SUMMARY | 2024-08-29 09:49 | XMS_ITS | Continuity of Care Document ---
Author Organization [facility] Address [address] [place] [address] Care Team Providers Care Tacker Off Name Role Phone DAVID BIRMINGHAM Primary Care Provider [phone] Assessment No assessment recorded. Plan of Treatment Reminders Order Date Submit Date Provider Last Modified By Organization Details Last Modified Time Details Appointments OB ROUTINE 2024 01:00P Rajan LEROY MD Not available Not available Not available Lab None recorded . Referral None recorded . Procedures None recorded . Surgeries None recorded . Imaging US, obstetri c, follow-u p 2024 025 [email or web address] [facility], [address], [address], [place], [address], 08/28/2024 21:14:59 Medication Orders None recorded . Patient TargetsNo targets recorded. Patient InstructionsNo instructions recorded. Reason for Referral None Reported. Results Created Date Observation Date Name Description Value Unit Range Abnormal Flag Note LastModifiedBy Organization Detail LastModifiedTime 06/06/2006/06/2024 US, obste tric, nucha l trans lucen cy No observ ation record ed. [email or web address] [address], [place], [address], 06/06/2024 18:17:53 06/06/2006/06/2024 US, obste tric, nucha l trans lucen cy No observ ation record ed. [email or web address] [address], [place], [address], 06/06/2024 21:13:02 07/07/19 25 07/07/2024 US, obste tric, limit ed No observ ation record ed. [email or web address] [address], [place], [address], 07/08/2024 13:03:51 07/07/19 25 07/07/2024 US, obste tric, limit ed No observ ation record ed. [facility] [address], [place], [address], 07/07/2024 17:07:07 07/31/19 25 07/31/2024 US, obste tric, 2nd or 3rd trime ster No observ ation record ed. [address], [place], [address], 07/31/2024 17:58:51 07/31/19 25 07/31/2024 US, obste tric, follo w-up No observ ation record ed. [email or web address] [address], [place], [address], 08/04/2024 13:23:55 08/28/19 25 08/28/2024 US, obste tric, follo w-up No observ ation record ed. [address], [place], [address], 08/28/2024 18:29:50 08/28/19 25 08/28/2024 US, obste tric, follo w-up No observ ation record ed. [email or web address] [address], [place], [address], 08/28/2024 20:57:32 08/28/19 25 08/28/2024 US, obste tric, follo w-up No observ ation record ed. [address], [place], [address], 08/28/2024 22:50:03 Result Notes None recorded. Problems Name Problem SNOMED Code Status Onset Date Resolution Date Notes Provider Name and Address Organization Details Recorded Time 03028332 Active 2023 Karin Contreras [facility] 4 16:57:16 Acid reflux 073796525 Active Niranjan Leroy MD [address], [place], [address], [place] [facility] 5 16:31:38 Marginal insertion of umbilical cord 86185631 Active serial growth Mahogany Jimenez [facility] 5 13:23:27 Edema of lower extremity 516290707 Active UNILATERA L, RIGHT SIDE Order faxed to [facility] for Rpt venous doppler 08/28 scheduled Trey 08/29 09 referral faxed to [facility] 08/28 Mahogany Jimenez [facility] 5 16:43:33 Problem Notes None recorded. Procedures Surgical History Date Name Laterality Status Provider Name and Address Organization Details Recorded Time 10/08/19 24 Date of Last Pap Smear completed [facility] 05/12/2024 13:54:02 11/05/19 21 Laparoscopy completed [facility] 12/11/2020 19:21:46 04/04/20 20 Dilation and Curettage completed [facility] 12/11/2020 19:21:22 08/05/19 19 extraction of wisdom tooth completed [facility] 12/11/2020 19:21:03 Imaging Results Imaging Date Name Status LastModified by Organiz ation Details LastModified Time 08/28/2024 US, obstetric, follow-up completed [email or web address] [facility] [address], [place], [address], 08/28/2024 18:29:50 Procedure Notes None recorded. Medical Equipment None [...] Address Organization Details Last Updated DateTime 08/28/2024 [address]50.9960 8 g 116 mm[Hg] 78 mm[Hg] Sophie Antonio [facility] 08/28/2024 14:50:59 Social History Question Answer Notes LastModified by Organizat ion Details LastModified Time Tobacco Smoking Status Current Every Day Smoker Scarlet Beltran [facility] 03/25/2021 10:37:51 Do You Have An Advance Directive? No [email or web address] Information not available 05/12/2024 What Is Your Level Of Alcohol Consumption? Occasional [email or web address] Information not available 12/11/2020 If You Are , What Was Your Level Of Alcohol Consumption Prior To ? None [email or web address] Information not available 03/25/2021 How Many Years Have You Consumed Alcohol? 7 Information not available 10/08/2023 Are You Blind Or Do You Have Difficulty Seeing? No [email or web address] Information not available 12/11/2020 What Is Your Level Of Caffeine Consumption? Occasional [email or web address] Information not available 12/11/2020 In The 14 Days Before Symptom Onset, Have You Had Close Contact With A Laboratory-confir med COVID-19 While That Case Was Ill? No [email or web address] Information not available 12/11/2020 In The 14 Days Before Symptom Onset, Have You Had Close Contact With A Person Who Is Under Investigation For COVID-19 While That Person Was Ill? No [email or web address] Information not available 12/11/2020 Have You Been To An Area Known To Be High Risk For COVID-19? No [email or web address] Information not available 12/11/2020 Are You Deaf Or Do You Have Serious Difficulty Hearing? No [email or web address] Information not available 12/11/2020 What Type Of Diet Are You Following? REGULAR [email or web address] Information not available 12/11/2020 Do You Or Have You Ever Used E-cigarettes Or Vape? Current User Of Electronic Cigarettes [email or web address] Information not available 03/25/2021 What Is The Highest Grade Or Level Of School You Have Completed Or The Highest Degree You Have Received? 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 No Information not available 10/08/2023 Have You Ever Been Counseled For Unhealthy Alcohol Use? No [email or web address] Information not available 03/25/2021 Do You Use Protection During Sex? No [email or web address] Information not available 03/25/2021 Do You Use Your Seat Belt Or Car Seat Routinely? Yes [email or web address] Information not available 12/11/2020 Do You Have Smoke And Carbon Monoxide Detectors In Your Home? Yes [email or web address] Information not available 12/11/2020 At What Age Did You Start Smoking Tobacco? 16 Information not available 10/08/2023 Do You Or Have You Ever Used Smokeless Tobacco? Never Used Smokeless Tobacco Information not available 03/25/2021 How Much Tobacco Do You Smoke? 0.5 PPD Information not available 10/08/2023 Do You Feel Stressed (tense, Restless, Nervous, Or Anxious, Or Unable To Sleep At Night)? [id number] Information not available 10/08/2023 Do You Use Any Illicit Or Recreational Drugs? No [email or web address] Information not available 12/11/2020 Do You Use Sunscreen Routinely? Yes [email or web address] Information not available 12/11/2020 Has Tobacco Cessation Counseling Been Provided? No [email or web address] Information not available 03/25/2021 Have You Used IV Drugs? No [email or web address] Information not available 03/25/2021 Do You Or Have You Ever Used Any Other Forms Of Tobacco Or Nicotine? Yes [email or web address] Information not available 03/25/2021 Sex: Unknown Functional Status Question Answer Note LastModified by Organizat ion Details LastModified Time Do you have difficulty walking or climbing stairs? No Information not available 07/07/2022 Are you able to walk? YESWOREST [email or web address] Information not available 12/11/2020 Are you able to care for yourself? Yes Information not available 07/07/2022 Do you have difficulty dressing or bathing? No Information not available 07/07/2022 What is your exercise level? Occasional [email or web address] Information not available 12/11/2020 Mental Status None recorded. Family History Relationship Description Onset Age of this Age Resolved Age Notes LastModified by Organization Details LastModified Time Maternal Grandmother Malignant tumor of colon age unsure [email or web address] Not available 12/11/2020 19:14:43 Maternal Grandmother Diabetes mellitus [email or web address] Not available 12/11 19:18:00 Paternal Uncle Diabetes mellitus [email or web address] Not available 12/11 19:18:11 Paternal Uncle Schizophreni a [email or web address] Not available 2023 15:41:43 Mother Anxiety disorder [email or web address] Not available 12/11 19:19:14 Mother Depressive disorder [email or web address] Not available 12/11 19:19:19 Maternal Aunt Multiple sclerosis [email or web address] Not available 12/11 19:19:37 Medical History Condition [...] SNOMED-CT Code Diagnosis ICD10 Code Diagnosis Note [id number] [facility] [address],[place] [address] 07/31/2024 14:27:44 07/31/2024 15:45:54 screening for malformation 590030474 Z36.3 Z3A.19 [id number] Niranjan Leroy MD [facility] [address],[place] [address] 07/31/2024 14:28:07 07/31/2024 16:41:53 Routine care 814155254 Z34.90 [id number] Niranjan Leroy MD [facility] [address] [address] 08/15/2024 10:56:59 08/15/2024 12:29:56 Routine care 923939576 Z34.90 [id number] [facility] [address],[place] [address] 08/28/2024 13:50:38 08/28/2024 14:33:47 Placental condition affecting management of mother 611072604 O43.102 Z36.2 Z3A.23 [id number] Niranjan Leroy MD [facility] [address],[place] [address] 08/28/2024 13:51:41 08/28/2024 15:28:10 Routine care 756771927 Z34.90 Health Concerns Section Related Observation LastModified by Organization Detai ls LastModified Time None Recorded Concern Status LastModified by Organization Details LastModified Time None Recorded Payers Encounter Date Sequence Insurance Name Policy Number Policy Corona Covered Member ID Corona Member ID Guarantor Name 08/28/2024 1 [facility] Gerri Loaiza [id number] OI Gerri Crow Episode Ob Episode Information Episode Created Date Number of Fetuses Patient Bloodtype Patient rh Status Prepregnancy Weight lbs Domestic Partner Domestic Partner Phone Father Name Filler Shredder Machine Status 06/06/20 24 1 O Positive 170 Keagan Loaiza OPEN Fetus Data First Name Last Name Admitted to NICU Weight (g) Sex Living Outcome Pediatric Complications Fetus ID Race Codes Race Delivery Type [id number] Problems Problem Notes prominent stomach on USvenou s doppler wnl 08/12 [facility] repeat doppler/ Referral [facility] faxed 08/28 Problem Name Start Date End Date Resolution Snomed Code Not e Marginal insertion of umbilical cord 69990419 serial growth Edema of lower extremity 377054953 UNILATERAL, RIG HT SIDE Order faxed to Trey for Rpt venous doppler 08/28 scheduled Trey 08/29 0900referral faxed to [facility] 08/28 Acid reflux 607715828 Mack Calculation Initial Mack Date Initial Exam [...] Date Ultra Sound Latest Days Gestation 0 [email or web address] 06/06/2024 12/26/19 25 0 Pre-ellen Flowsheet Flowsheet Date 06/06/2024 Kelly Score Blood Edema Fundus Height Fundus Units Glucose Ketones Leukocytes Nitrite Labor Signs Protein Cervic Dilation Cervic Effacement Cervic Station Type Weight in lbs Pre/Post Dialysis Refused Weight 170.867588678577 BP Diastolic BP Location Tested BP Systolic BP Type 75 L arm 116 sitting Fetus Heart Rate Present A 167 Fetus Movement Comments Patient presents to [email or web address] care. Overall feeling well, no cramping, [...] Type Weight in lbs Pre/Post Dialysis Refused 177.149322791945 BP Diastolic BP Location Tested BP Systolic [...] Type Weight in lbs Pre/Post Dialysis Refused 178.462833447454 BP Diastolic BP Location Tested BP Systolic [...] Type Weight in lbs Pre/Post Dialysis Refused 182.871291958792 BP Diastolic BP Location Tested BP Systolic [...] Type Weight in lbs Pre/Post Dialysis Refused 184.638692008690 BP Diastolic BP Location Tested BP Systolic BP Type 78 L arm 116 sitting Fetus Heart Rate Present A 145 Fetus Movement A Yes Comments Unilateral leg swelling on t he right persist. Repeat Dopplers and referred to [facility]. Menstrual History Last Menstrual Date Menses [...]
--- OUTSIDE RECORDS SUMMARY | 2024-08-29 09:49 | XMS_ITS | Continuity of Care Document ---
Author Organization [facility] Address [address] [place] [address] Care Team Providers Care Skin Installer Name Role Phone DAVID BIRMINGHAM Primary Care Provider Assessment Encounter Date Assessment Date Assessment LastModified by Organization Details LastModified Time 08/28/2024 08/28/2024 Patient is ___weeks . Discussed plan. Not available 08/28/2024 14:50:07 Plan of Treatment Reminders Order Date Submit Date Provider Last Modified By Organization Details Last Modified Time Details Appointments OB ROUTINE 2024 01:00P Rajan LEROY MD Not available Not available Not available Lab None recorded . Referral None recorded . Procedures None recorded . Surgeries None recorded . Imaging None recorded . Medication Orders None recorded . Patient TargetsNo targets recorded. Patient InstructionsNo instructions recorded. Reason for Referral None Reported. Results Created Date Observation Date Name Description Value Unit Range Abnormal Flag Note LastModifiedBy Organization Detail LastModifiedTime 06/06/2006/06/2024 US, obste tric, nucha l trans lucen cy No observ ation record ed. [facility] [address], [place], [address], 06/06/2024 18:17:53 06/06/2006/06/2024 US, obste tric, nucha l trans lucen cy No observ ation record ed. [email or web address], [place], [address], 06/06/2024 21:13:02 07/07/19 25 07/07/2024 US, obste tric, limit ed No observ ation record ed. [email or web address], [place], [address], 07/08/2024 13:03:51 07/07/19 25 07/07/2024 US, obste tric, limit ed No observ ation record ed. [facility] [address], [place], [address], 07/07/2024 17:07:07 07/31/19 25 07/31/2024 US, obste tric, 2nd or 3rd trime ster No observ ation record ed. [address], [place], [address], 07/31/2024 17:58:51 07/31/19 25 07/31/2024 US, obste tric, follo w-up No observ ation record ed. [email or web address] [address], [place], [address], 08/04/2024 13:23:55 08/28/19 25 08/28/2024 US, obste tric, follo w-up No observ ation record ed. [address], [place], [address], 08/28/2024 18:29:50 08/28/19 25 08/28/2024 US, obste tric, follo w-up No observ ation record ed. [email or web address], [place], [address], 08/28/2024 20:57:32 08/28/19 25 08/28/2024 US, obste tric, follo w-up No observ ation record ed. [email or web address] [address], [place], [address], 08/28/2024 22:50:03 Result Notes None recorded. Problems Name Problem SNOMED Code Status Onset Date Resolution Date Notes Provider Name and Address Organization Details Recorded Time 17285184 Active 2023 Karin Contreras [facility] 4 16:57:16 Acid reflux 580636187 Active Niranjan Leroy MD [address], [place], [address], [facility] 5 16:31:38 Marginal insertion of umbilical cord 38952080 Active serial growth Mahogany Jimenez [facility] 5 13:23:27 Edema of lower extremity 531338698 Active UNILATERA L, RIGHT SIDE Order faxed to Trey for Rpt venous doppler 08/28 scheduled Trey 08/29 0900 referral faxed to [facility] 08/28 Mahogany Tony [facility] 5 16:43:33 Problem Notes None recorded. Procedures Surgical History Date Name Laterality Status Provider Name and Address Organization Details Recorded Time 10/08/19 24 Date of Last Pap Smear completed [facility] 05/12/2024 13:54:02 11/05/19 21 Laparoscopy completed [facility] 12/11/2020 19:21:46 04/04/20 20 Dilation and Curettage completed [facility] 12/11/2020 19:21:22 08/05/19 19 extraction of wisdom tooth completed [facility] 12/11/2020 19:21:03 Imaging Results None recorded. Procedure Notes None recorded. Medical Equipment None [...] Address Organization Details Last Updated DateTime 08/28/2024 69447.9960 8 g 116 mm[Hg] 78 mm[Hg] Sophie Antonio [facility] 08/28/2024 14:50:59 Social History Question Answer Notes LastModified by Organizat ion Details LastModified Time Tobacco Smoking Status Current Every Day Smoker Scarlet dawson, [facility] 03/25/2021 10:37:51 Do You Have An Advance Directive? No [email or web address] Information not available 05/12/2024 What Is Your Level Of Alcohol Consumption? Occasional [email or web address] Information not available 12/11/2020 If You Are , What Was Your Level Of Alcohol Consumption Prior To ? None Information not available 03/25/2021 How Many Years Have You Consumed Alcohol? 7 Information not available 10/08/2023 Are You Blind Or Do You Have Difficulty Seeing? No [email or web address] Information not available 12/11/2020 What Is Your Level Of Caffeine Consumption? Occasional [email or web address] Information not available 12/11/2020 In The 14 Days Before Symptom Onset, Have You Had Close Contact With A Laboratory-confir med COVID-19 While That Case Was Ill? No [email or web address] Information not available 12/11/2020 In The 14 Days Before Symptom Onset, Have You Had Close Contact With A Person Who Is Under Investigation For COVID-19 While That Person Was Ill? No [email or web address] Information not available 12/11/2020 Have You Been To An Area Known To Be High Risk For COVID-19? No [email or web address] Information not available 12/11/2020 Are You Deaf Or Do You Have Serious Difficulty Hearing? No [email or web address] Information not available 12/11/2020 What Type Of Diet Are You Following? REGULAR [email or web address] Information not available 12/11/2020 Do You Or Have You Ever Used E-cigarettes Or Vape? Current User Of Electronic Cigarettes Information not available 03/25/2021 What Is The Highest Grade Or Level Of School You Have Completed Or The Highest Degree You Have Received? 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 No Information not available 10/08/2023 Have You Ever Been Counseled For Unhealthy Alcohol Use? No [email or web address] Information not available 03/25/2021 Do You Use Protection During Sex? No [email or web address] Information not available 03/25/2021 Do You Use Your Seat Belt Or Car Seat Routinely? Yes [email or web address] Information not available 12/11/2020 Do You Have Smoke And Carbon Monoxide Detectors In Your Home? Yes [email or web address] Information not available 12/11/2020 At What Age Did You Start Smoking Tobacco? 16 Information not available 10/08/2023 Do You Or Have You Ever Used Smokeless Tobacco? Never Used Smokeless Tobacco [email or web address] Information not available 03/25/2021 How Much Tobacco Do You Smoke? 0.5 PPD Information not available 10/08/2023 Do You Feel Stressed (tense, Restless, Nervous, Or Anxious, Or Unable To Sleep At Night)? [id number] Information not available 10/08/2023 Do You Use Any Illicit Or Recreational Drugs? No [email or web address] Information not available 12/11/2020 Do You Use Sunscreen Routinely? Yes [email or web address] Information not available 12/11/2020 Has Tobacco Cessation Counseling Been Provided? No [email or web address] Information not available 03/25/2021 Have You Used IV Drugs? No [email or web address] Information not available 03/25/2021 Do You Or Have You Ever Used Any Other Forms Of Tobacco Or Nicotine? Yes [email or web address] Information not available 03/25/2021 Sex: Unknown Functional Status Question Answer Note LastModified by Organizat ion Details LastModified Time Do you have difficulty walking or climbing stairs? No Information not available 07/07/2022 Are you able to walk? YESWOREST [email or web address] Information not available 12/11/2020 Are you able to care for yourself? Yes Information not available 07/07/2022 Do you have difficulty dressing or bathing? No Information not available 07/07/2022 What is your exercise level? Occasional [email or web address] Information not available 12/11/2020 Mental Status None recorded. Family History Relationship Description Onset Age of this Age Resolved Age Notes LastModified by Organization Details LastModified Time Maternal Grandmother Malignant tumor of colon age unsure [email or web address] Not available 12/11/2020 19:14:43 Maternal Grandmother Diabetes mellitus [email or web address] Not available 12/11 19:18:00 Paternal Uncle Diabetes mellitus [email or web address] Not available 12/11 19:18:11 Paternal Uncle Schizophreni a [email or web address] Not available 2023 15:41:43 Mother Anxiety disorder [email or web address] Not available 12/11 19:19:14 Mother Depressive disorder [email or web address] Not available 12/11 19:19:19 Maternal Aunt Multiple sclerosis [email or web address] Not available 12/11 19:19:37 Medical History Condition Response Allergies (Food, seasonal, environmental ) N Other Y Drug/Latex Allergies/Reactions N Breast Cancer N Blood Transfusion N Lung Disease N Dermatologic Disorders N Defects or Inherited Disease N Breast Problem N Gestational Diabetes N Hematologic disorders N Anesthesia Complications N History of STI N Deep Vein Thrombosis N Polycystic ovary syndrome N Anxiety Disorder Y Autoimmune disease N Arthritis N Polyps N Infertility N History of abnormal pap N Acid Reflux (GERD) N Cancer N Varicosities N Stroke N Neurologic/Epilepsy N Endometriosis N High Cholesterol N Headaches N Fibromyalgia N Kidney Disease N Heart Problems N Thyroid Problems N Kidney or Bladder Problems N GI Problems N Eating Disorder [...] SNOMED-CT Code Diagnosis ICD10 Code Diagnosis Note [id number] Mayra Villagomez [facility] [address] [address] 07/31/2024 14:27:44 07/31/2024 15:45:54 screening for malformation 562040701 Z36.3 Z3A.19 [id number] Niranjan Leroy MD [facility] [address],[place] [address] 07/31/2024 14:28:07 07/31/2024 16:41:53 Routine care 874282091 Z34.90 [id number] Niranjan Leroy MD [facility] [address],[place] [address] 08/15/2024 10:56:59 08/15/2024 12:29:56 Routine care 037882026 Z34.90 [id number] Mayra Villagomez [facility] [address],[place] [address] 08/28/2024 13:50:38 08/28/2024 14:33:47 Placental condition affecting management of mother 364486374 O43.102 Z36.2 Z3A.23 [id number] Niranjan Leroy MD [facility] [address],[place] [address] 08/28/2024 13:51:41 08/28/2024 15:28:10 Routine care 331989135 Z34.90 Health Concerns Section Related Observation LastModified by Organization Detai ls LastModified Time None Recorded Concern Status LastModified by Organization Details LastModified Time None Recorded Payers Encounter Date Sequence Insurance Name Policy Number Policy Corona Covered Member ID Corona Member ID Guarantor Name 08/28/2024 1 [facility] [employer] Gerri Loaiza [id number] OI Gerri Loaiza OBGyn Episode Ob Episode Information Episode Created Date Number of Fetuses Patient Bloodtype Patient rh Status Prepregnancy Weight lbs Domestic Partner Domestic Partner Phone Father Name Clamp Carrier Operator Status 06/06/20 24 1 O Positive 170 Keagan Loaiza OPEN Fetus Data First Name Last Name Admitted to NICU Weight (g) Sex Living Outcome Pediatric Complications Fetus ID Race Codes Race Delivery Type [id number] Problems Problem Notes prominent stomach on USvenou s doppler wnl 08/12 [facility] repeat doppler/ Referral [facility] faxed 08/28 Problem Name Start Date End Date Resolution Snomed Code Not e Marginal insertion of umbilical cord 40889009 serial growth Edema of lower extremity 246358255 UNILATERAL, RIG HT SIDE Order faxed to Trey for Rpt venous doppler 08/28 scheduled Trey 08/29 0900referral faxed to [facility] 08/28 Acid reflux 624503560 Mack Calculation Initial Mack Date Initial Exam [...] Date Ultra Sound Latest Days Gestation 0 06/06/2024 12/26/19 25 0 Pre- Flowsheet Flowsheet Date 06/06/2024 Kelly Score Blood Edema Fundus Height Fundus Units Glucose Ketones Leukocytes Nitrite Labor Signs Protein Cervic Dilation Cervic Effacement Cervic Station Type Weight in lbs Pre/Post Dialysis Refused Weight 170.168131511064 BP Diastolic BP Location Tested BP Systolic BP Type 75 L arm 116 sitting Fetus Heart Rate Present A 167 Fetus Movement Comments Patient presents to [facility] care. Overall feeling well, no cramping, [...] Type Weight in lbs Pre/Post Dialysis Refused 177.825362189863 BP Diastolic BP Location Tested BP Systolic [...] Type Weight in lbs Pre/Post Dialysis Refused 178.266318195415 BP Diastolic BP Location Tested BP Systolic [...] Type Weight in lbs Pre/Post Dialysis Refused 182.649072721062 BP Diastolic BP Location Tested BP Systolic [...] Type Weight in lbs Pre/Post Dialysis Refused 184.425322046019 BP Diastolic BP Location Tested BP Systolic BP Type 78 L arm 116 sitting Fetus Heart Rate Present A 145 Fetus Movement A Yes Comments Unilateral leg swelling on t he right persist. Repeat Dopplers and referred to M. Menstrual History Last Menstrual Date Menses Monthly [...]
== END 2024-08-29 08:59 | disposition home or self-care (01) ==
LOC: ANHIMG 09:07
PROVIDERS: Visit Provider Obstetrics & Gynecology
DX: M79.604 Pain in right leg (principal)
CPT/HCPCS: 93971

== ENCOUNTER 2024-10-20 09:04 | Outpatient (CLI) | payer OTHER, SELFPAY ==
--- OUTSIDE RECORDS SUMMARY | 2024-10-20 09:09 | XMS_ITS | Clinical Summary ---
Author Organization [facility] Address [facility] [place] [address] Care Team Providers Care Menu Planner Name Role Phone Niranjan Leroy MD Primary Care Provider [phone] Allergies No known active allergies Medications norethindrone-e thinyl estradiol (07/24) 1-20 MG-MCG tablet Take 1 tablet by mouth daily. Active buPROPion (WELLBUTRIN) 75 MG tablet bupropion HCl 75 mg tablet Active busPIRone (BUSPAR) 15 MG tablet buspirone 15 mg tablet Active ( VITAMINS) 28-0.8 MG tablet Take 1 tablet by mouth daily. Active Docusate Sodium (COLACE OR) Take as directed. Active Active Problems Problem Noted Date Diagnosed Date Obesity affecting in second trimester ([facility]) 09/18/2024 Swelling of lower extremity during in second trimester ([facility]) 09/18/2024 Ectopic ([facility]) 11/04/2020 S/P laparoscopy 11/04/2020 Depression 03/29/2012 Comments Yes Encounters Date Type Department Care Team Description 10/18/2024 10:15 AM CDT Office Visit [facility] [address] [place] [id number] Amish Marie MD Edema 10/06[facility]2024 [facility] [address] [place] [address] Francine Mendez MD Referral 09/27/[address] [place] [address] [phone] Anju Romero, HEAT PUMP INSTALLER Results 09/26/2024 4:55 PM CDT - 09/26/2024 11:59 PM CDT Hospital Encounter [facility] [address] [place] [address] Anju Romero, HEAT PUMP INSTALLER Discharge Disposition: Home or Self Care (Routine Discharge) 09/26/2024 3:20 PM CDT Office Visit [facility] [address] [place] [address] Anju Romero, DAYA Sore Throat (Starting yesterday. Patient is . ) 09/26/2024 Travel 09/18/2024 4:00 PM CDT - 09/18/2024 11:59 PM CDT Hospital Encounter [facility] [address] [place] [address] Julieta Ann MD Discharge Disposition: Home or Self Care (Routine Discharge) 09/18/2024 Orders Only [facility] [address] [place] [address] Julieta Ann MD 09/18/2024 Travel 08/11/2024 10:53 PM CARDIAC NURSE - 08/12/2024 1:26 AM CARDIAC NURSE Emergency [facility] [id number] [place] [address] Jose Norris MD Leg Swelling (right) Discharge Disposition: Home or Self Care (Routine Discharge) 08/11/2024 Travel from Last 3 Months Immunizations Immunization Administration Dates Next Due Dtap 12/05/2001,12/10/1997,03/15/1997 Dtap (Generic) 03/16/1997,01/11/1997,1996 H1N1 Injectable 2009 Influenza 10/08/2011 HPV 07/16/2011 Hepatitis B 09/17/1997,1996,1996 Hib (Generic) 12/10/1997,01/11/1997,1996 MMR 12/05/2001,09/17/1997 Meningococcal (Generic) 07/16/2011 Opv 01/11/1997,1996 Polio Ipv (Generic) 12/05/2001,03/16/1997 Tdap (Generic) 07/16/2011 Family History Medical History Relation Comments Diabetes [...] declined 04/26/2020 How often do you attend congregation or yazidi serv ices? Patient declined 04/26/2020 Do you belong to any clubs o r organizations such as congregation groups, unions, fraternal or athletic groups, or [...] and heating? Not hard at all 04/26/2020 [facility] [place] of Occupat ional Health - Occupational Stress [...] Sex Assigned at Female 08/11/2024 11:03 PM CARDIAC NURSE Legal Sex Female 8:08 AM CDT Gender Identity Not on file Sexual Orientation Not on file Last Filed Vital Signs Vital Sign Reading Time Taken Comments Blood Pressure 104/70 10/18/2024 11:05 AM CDT Pulse 70 10/18/2024 11:05 AM CDT Temperature 37.2 C (99 F) 09/26/2024 3:01 PM CDT Respiratory Rate 16 09/26/2024 3:01 PM CDT Oxygen Saturation 96% 09/26/2024 3:01 PM CDT Inhaled Oxygen Concentration - - Weight 90.4 kg (199 lb 6.4 oz) 10/18/2024 11:05 AM CDT Height 167.6 cm (5' 6 ) 10/18/2024 11:05 AM CDT Body Mass Index 32.18 10/18/2024 11:05 AM CDT Plan of Treatment Health Maintenance Due Date Last Done Comments Annual Physical 09/07/1999 HPV Vaccines (2 - 2-dose series) 01/14/2012 07/16/2011 Pneumococcal Vaccine: Pediatrics (0 to 5 Years) and At-Risk Patients (6 to 49 Years) (1 of 2 - PCV) 09/07/2015 DTaP, Tdap and Td Vaccines (7 - Td or Tdap) 07/16/2021 07/16/2011, 12/05/2001, 12/10/1997, Additional history exists COVID-19 Vaccine ( - season) 2024 PHQ-2 (Physician [place]) 07/05/2024 Cervical Cancer Screening Pap Smear (Age 22 [...] Procedure Name Priority Date/Time Associated Diagnosis Comments STREP A, DNA Routine 09/26/2024 3:17 PM CDT Upper respiratory tract infection, unspecified type CORONAVIRUS (COVID-19) INFLUENZA A & B ANTIGEN IA PANEL Routine 09/26/2024 Upper respiratory tract infection, unspecified type STREP A RAPID Routine 09/26/2024 Upper respiratory tract infection, unspecified type COMPREHENSIVE METABOLIC PANEL Routine 09/18/2024 4:11 PM CDT Swelling of lower extremity during (HHS/HCC) USV GABI DUPLEX LOW EXT RT STAT 08/12/2024 1:03 AM CARDIAC NURSE D-DIMER, QUANTITATIVE STAT 08/11/2024 11:30 PM CARDIAC NURSE CHLAM/GC/TRICHOMONAS PROFILE Routine 03/08/2018 6:19 AM CDT from Last 3 Months or Most Recently Relevant to Health Maintenance Results * STREP A, DNA ASSAY (for Confirmation only) (09/26/2024 3:17 PM CDT) Pathologist [facility] SPECIMEN SOURCE THROAT 5 4:55 PM CDT [facility] STREP A MOLECULAR NEGATIVE NEGATIVE 025 8:57 PM CDT [facility] Comment:SPECIMEN NEGATIVE FO R GROUP A STREPTOCOCCUS BY DNA AMPLIFICATION STRUCTURE OF ANTERIOR PORTION OF NECK / Unknown 09/26/2024 3:17 PM CDT us Anju Romero HEAT PUMP INSTALLER MICROBIOLOGY - GENERAL OR DERABLES Final Result Performing Organization Address City/[facility]/ZIP Co de Phone Number [facility] [address] [place] [address], [place] [phone] [facility] [address] [place] [address], [place] * CORONAVIRUS (COVID-19) INFLUENZA A & B ANTIGEN IA PANEL (09/26/2024) [facility] CORONAVIRUS ANTIGEN IA NEGATIVE NEGATIVE [facility] ([address]), [place] INFLUENZA A NEGATIVE NEGATIVE [facility] (201), [place] INFLUENZA B NEGATIVE NEGATIVE [facility] (201), [place] Internal Control: VALID VALID [facility] (201), [place] NASAL STRUCTURE / Unknown 09/26/2024 us Anju Romero APRN MICROBIOLOGY - GENERAL OR DERABLES Final Result [facility] ([address]), [address] [place] [address], [place] [phone] * STREP A RAPID (09/26/2024) [facility] RAPID STREP TEST NEGATIVE NEGATIVE [facility] (201), [place] Internal Control: VALID VALID [facility] ([address]), [place] STRUCTURE OF ANTERIOR PORTION OF NECK / Unknown 09/26/2024 Anju Romero DAYA MICROBIOLOGY - GENERAL OR DERABLES Final Result [facility] ([address]), [address] [address], * (ABNORMAL) COMPREHENSIVE METABOLIC PANEL (09/18/2024 4:11 PM CDT) SODIUM S/P/B 135(L) 136 - 145 MMOL/L 09/18/2024 4:[address] [facility] POTASSIUM S/P/B 4.3 3.5 - 5.1 MMOL/L 09/18/2024 4:[address] [facility] CHLORIDE S/P/B 101 98 - 107 MMOL/L 09/18/2024 4:[address] [facility] CO2 25.8 21.0 - 32.0 MMOL/L 09/18/2024 4:[address] [facility] GLUCOSE 87 70 - 99 MG/DL 09/18/2024 4:[address] [facility] Comment: FASTING GLUCOSE 100 TO 125 MG/DL IS CONSISTENT WITH IMPAIRED FASTING GLUCOSE. FASTING GLUCOSE >125 MG/DL IS CONSISTENT WITH DIABETES. RANDOM GLUCOSE >200 MG/DL WITH HYPERGLYCEMIC SYMPTOMS IS CONSISTENT WITH DIABETES. PER ADA GUIDELINES BUN 12 6 - 24 MG/DL 09/18/2024 4:[address] [facility] CREATININE S/P/B 0.51(L) 0.55 - 1.02 MG/DL 09/18/2024 4:[address] [facility] CALCIUM S/P/B 8.9 8.4 - 10.5 MG/DL 09/18/2024 4:[address] [facility] BILIRUBIN TOTAL S/P/B 0.2 0.2 - 1.0 MG/DL 09/18/2024 4:[address] [facility] Comment: THIS ASSAY IS NOT RECOMMENDED FOR PATIENTS UNDERGOING TREATMENT WITH ELTROMBOPAG DUE TO THE POTENTIAL FOR FALSELY ELEVATED RESULTS. ALKALINE PHOSPHATASE S/P/B 69 37 - 98 U/L 09/18/2024 4:[address] [facility] AST 19 15 - 37 U/L 09/18/2024 4:[address] [facility] ALT 35 14 - 59 U/L 09/18/2024 4:[address] [facility] TOTAL PROTEIN S/P/B 6.6 6.4 - 8.2 G/DL 09/18/2024 4:[address] [facility] ALBUMIN S/P/B 2.8(L) 3.4 - 5.0 G/DL 09/18/2024 4:[address] [facility] ANION GAP 8.2 5.0 - 15.0 MMOL/L 09/18/2024 4:[address] [facility] OSMOLALITY (CALC) 279 MOSM/KG 025 4:[address] [facility] Comment:REFERENCE RANGE NOT ESTABLISHED GFR ESTIMATE >90 >89 ML/MIN/1. 73 M2 09/18/2024 4:[address] [facility] GFR NOTES GFR REFERENCE S: 09/18/2024 4:[address] [facility] Comment: THE ESTIMATED GFR IS CALCULATED USING THE 2020 CKD-EPI EQUATION. THE FOLLOWING CATEGORIES FOR GRADING RENAL FUNCTION ARE RECOMMENDED BY THE INTERNATIONAL SOCIETY OF NEPHROLOGY (KDIGO 2012 CLINICAL PRACTICE GUIDELINE). G1,NORMAL OR HIGH: >89 ml/min/1.73 m2 G2,MILDLY DECREASED: 60-89 ml/min/1.73 m2 G3A,MILDLY TO MODERATELY DECREASED: 45-59 ml/min/1.73 m2 G3B,MODERATELY TO SEVERELY DECREASED: 30-44 ml/min/1.73 m2 G4,SEVERELY DECREASED: 15-29 ml/min/1.73 m2 G5,KIDNEY FAILURE: <15 ml/min/1.73 m2 09/18/2024 4:11 PM CDT us Julieta Ann MD LABORATORY Final Result [facility] [address] [place] [address], * USV GABI DUPLEX LOW EXT RT (08/12/2024 1:03 AM CARDIAC NURSE) Anatomical Region Laterality Modality Extremity Ultrasound 08/12/2024 1:06 AM CARDIAC NURSE Impressions 08/12/2024 1:11 AM CARDIAC NURSE IMPRESSION: 1. No evidence of deep venous thrombosis in the imaged right lower extremity or in the limited imaged left common femoral vein. 2. Benign-appearing lymph nodes in the right groin as noted above.. Referred By: Interpreted By: Martha Perez MD, 08/12/2024 1:06 AM Narrative 08/12/2024 1:11 AM CARDIAC NURSE [facility] [address] [place] [address] EXAMINATION: Duplex Doppler Ultrasound exam of the [...] Perez MD - 08/12/2024 [facility] [address] [place] [address] EXAMINATION: Duplex Doppler Ultrasound exam of the [...] MD, 08/12/2024 1:06 AM Jose Norris MD [facility] Final Result * (ABNORMAL) D-DIMER, QUANTITATIVE (08/11/2024 11:30 PM CARDIAC NURSE) D-DIMER 1,051(H) 0 - 500 ng{FEU}/mL 08/11/2024 11:52 PM CARDIAC NURSE [facility] Comment: D-Dimer values less [...] false negative findings. 08/11/2024 11:3 0 PM CARDIAC NURSE Jose Norris MD LABORATORY Final Result [facility] [address] [place] [address], * CHLAM/GC/TRICHOMONAS PROFILE (03/08/2018 6:19 AM CDT) CHLAMYDIA TRACHOMATIS RNA TMA Not Detected Not Detected 03/10/2018 10:16 AM CDT [facility] Comment:This test was perfor med using the APTIMA COMBO2(R)Assay (GEN-PROBE(R)). N.GONORRHOEAE RNA TMA (QST) Not Detected Not Detected 03/10/2018 10:16 AM CDT [facility] Comment: This test was performed using the APTIMA COMBO2(R)Assay (GEN-PROBE(R)).The analytical performance characteristics of thisassay, when used to test SurePath(R) specimens havebeen determined by [email or web address]. TRICHOMONAS Not Detected Not Detected 03/10/2018 10:16 AM CDT [facility] Comment: This test was performed using the APTIMA Trichomonasvaginalis Assay (Gen-Probe).For additional information, please refer tohttp://education.[employer]/faq/Trichomonastma (This link is being providedfor information/educational purposes only).The performance characteristics of this assay whenused to test SurePath(R) specimens have beendetermined by [place], [place] Performance characteristics refer tothe analytical performance of the test.Test Performed by [employer],[address] [place] [id number] Cai M.D., Ph.D., Director of [phone], [place] [id number] GENITAL SWAB / Unknown 03/08/2018 6:19 AM CDT 03/08/2018 6:19 AM CDT us Generic Conversion Md [facility] MICROBIOLOGY - GENERAL ORDERABLES Final Result [facility] [address] [place] [address], [place] [phone] from Last 3 Months or Most Recently Relevant to Health Maintenance Insurance [employer] OPEN ACCESS [facility] Advance Directives * Full Code (Latest Code Status on File) Date Activated Date Inactivated Comments 04/26/2020 12:34 PM 04/26/2020 3:47 PM Care Teams Menu Planner Relationship Specialty Start Date End Date Niranjan Leroy MD [address] [place] [address] PCP - General [facility] 08/11/24
--- OUTSIDE RECORDS SUMMARY | 2024-10-20 09:09 | XMS_ITS | Encounter Summary ---
Author Organization [facility] Address [facility] [place] [address] Care Team Providers Care Robotic Weld Technician Name Role Phone Niall Tate MD Primary Care Provider [phone] Niranjan Leroy MD Primary Care Provider [phone] Encounter Details Date Type Department Care Team (Late st Contact Info) Description 04/23/2020 Prep for Procedure [facility] [address] [place] [address] Alexa Thompson MD [address] [place] [address] Social History Tobacco Use Types Packs/Day Years [...] declined 04/26/2020 How often do you attend oriental orthodox or yazidism serv ices? Patient declined 04/26/2020 Do you belong to any clubs o r organizations such as oriental orthodox groups, unions, fraternal or athletic groups, or [...] and heating? Not hard at all 04/26/2020 [facility] [place] of Occupat ional Health - Occupational Stress [...] Sex Assigned at Female 08/11/2024 11:03 PM NEON ELECTRICIAN Legal Sex Female 8:08 AM CDT Gender Identity Not on file Sexual Orientation Not on file COVID-19 Exposure Response Date Recorded In the last month, have you been in contact with someone who was confirmed or suspected to have Coronavirus / COVID-19? No / Unsure 04/26/2020 10:25 AM CDT documented as of this encounter Functional Status * Intimate Partner Violence Question Answer Date of Assessment Author Status Within the last year, have you been humiliated or emotionally abused in other ways by your partner or ex-partner? Patient declined 04/26/2020 10:40 AM CDT Ivette Oconnor RN Active Within the last year, have you been afraid of your partner or ex-partner? Patient declined 04/26/2020 10:40 AM CDT Ivette Oconnor RN Active Within the last year, have you been raped or forced to have any kind of sexual activity by your partner or ex-partner? Patient declined 04/26/2020 10:40 AM CDT Ivette Oconnor RN Active Within the last year, have you been kicked, hit, slapped, or otherwise physically hurt by your partner or ex-partner? Patient declined 04/26/2020 10:40 AM CDT Ivette Oconnor RN Active documented as of this encounter Plan of Treatment Not on file documented as of this encounter Results * PRE-SURGICAL/PRE-PROCEDURE CORONAVIRUS (COVID 19) (04/23/2020 1:55 PM CDT) CORONAVIRUS SARS COV 2 PCR (RESP) NOT DETECTED NOT DETECTED 04/24/2020 10:[address] [facility] Comment: A Not Detected (negative) test [...] providers and patients using the following websites: https://www.kwiry.Topmall/home/Covid-19/HCP/Quest[employer]/fact- sheet.html https://www.kwiry.com/home/Covid-19/Patients/ QuestIVD/fact-sheet.html This test has been authorized by the FDA under an Emergency Use Authorization (EUA) for use by authorized laboratories. Due to the current public health emergency, [facility] is receiving a high volume of samples [...] about COVID-19 can be found at the [facility] website: www.Wordster.Topmall/Covid19. Test performed at [facility] [place] [address] [place] [address] Director: SEGUNDO GARCIA DO,MPH FIRST TEST YES 04/23/2020 1:55 PM CDT [facility] EMPLOYED IN HEALTHCARE NO 04/23/2020 1:55 PM CDT [facility] SYMPTOMATIC DEFINED BY CDC NO 04/23/2020 1:55 PM CDT [facility] DATE OF SYMPTOM ONSET UNKNOWN 04/23/2020 2:49 PM CDT [facility] HOSPITALIZATION STATUS NO 04/23/2020 1:55 PM CDT [facility] PATIENT IN ICU NO 04/23/2020 1:55 PM CDT [facility] RESIDENT OF [facility] NO 04/23/2020 1:55 PM CDT [facility] NOT 04/23/2020 1:55 PM CDT [facility] PATIENT'S RACE WHITE OR 04/23/2020 1:55 PM CDT [facility] ETHNICITY NONHISPANIC 04/23/2020 1:55 PM CDT [facility] SOURCE (QST) NASOPHARYNGEAL SWAB 04/23/2020 1:55 PM CDT [facility] NASOPHARYNGEAL SWAB / Unknown 04/23/2020 1:55 PM CDT us Alexa Thompson MD MICROBIOLOGY - GENERAL ORDERAB LES Final Result [facility] [address] [place] [address], [facility] [address] documented in this encounter Visit Diagnoses Diagnosis Pre-op testing- Primary Preoperative examination, unspecified documented in this encounter Additional Health Concerns Infection Onset Date Last Indicated Resolved Time COVID-19 Rule Out 04/23/2020 04/23/2020 04/24/2020 10:11 PM CDT COVID-19 Rule Out 01/29/2022 01/29/2022 01/29/2022 2:06 PM CDT COVID-19 Rule Out 01/31/2022 01/29/2022 01/31/2022 2:42 PM CDT COVID-19 Rule Out 08/01/2022 08/01/2022 08/01/2022 10:53 AM NEON ELECTRICIAN Respiratory Rule-Out 09/26/2024 09/26/2024 025 4:02 PM CDT documented as of this encounter Care Teams Robotic Weld Technician Relationship Specialty Start Date End Date Niall Tate MD [address] [place] [id number] PCP - General PEDIATRICS 08/29/19 08/10/24 Niranjan Leroy MD [address] [place] [address] PCP - General RESAW MACHINE OPERATOR ONCOLOGY 08/11/24 documented as of this encounter
--- OUTSIDE RECORDS SUMMARY | 2024-10-20 09:09 | XMS_ITS | Data Portability ---
Author Organization [facility] Address [address] [place] [place] [address] [place] [address] Assessment Encounter Date Assessment Date Assessment LastModified by Organization Details LastModified Time 08/28/2024 08/28/2024 Patient is ___weeks . Discussed plan. Not available 08/28/2024 14:50:07 09/29/2024 09/29/2024 Patient is _27__weeks . Discussed plan. [email or web address] Not available 09/29/2024 14:45:13 10/11/2024 10/11/2024 Patient is _29__weeks . Discussed plan. [email or web address] Not available 10/11/2024 16:34:25 Plan of Treatment Reminders Order Date Submit Date Provider Last Modified By Organization Details Last Modified Time Details Appointments OB ROUTINE 2024 02:00P Rajan Parmar CNM Not available Not available Not available Lab None recorded . Referral None recorded . Procedures None recorded . Surgeries None recorded . Imaging US, obstetri c, follow-u p 2024 025 [email or web address] [place], [address], [place], [address], 10/11/2024 21:14:50 US, obstetri c, follow-u p 2024 025 [email or web address] [address], [address], [place], [address], 08/28/2024 21:14:59 Medication Orders None recorded . Patient TargetsNo targets recorded. Patient InstructionsNo instructions recorded. Reason for Referral None Reported. Results Created Date Observation Date Name Description Value Unit Range Abnormal Flag Note LastModifiedBy Organization Detail LastModifiedTime 09/30/1909/29/2024 HEMOG LOBIN (HGB) HGB 11.3 g/dL (based on docume nted legal sex) 11.6-1 5.4 low Not Available [facility] (Lab) [address], [place], [address], 09/30/2024 12:35:44 09/30/19 25 09/29/2024 HEMAT OCRIT (HCT) HCT 34.4 % (based on docume nted legal sex) 34.0-4 5.0 Not Available [facility] (Lab) [address], [place], [address], 09/30/2024 12:35:45 09/30/19 25 09/29/2024 GTT - GESTA KHOI L PAULETTE Myles, ACOG OB glucose, 1 hour screen 100 mg/dL 70-135 Not Available [facility] (Lab) [address] [place], [address], 09/30/2024 12:35:45 09/30/1909/29/2024 HIV 1/2 ANTIG EN/AN TIBOD Y, REFLE X CONFI RMATI ON HIV antigen/anti body Nonrea ctive nonrea ctive HIV-1 antig en and HIV-1 /HIV- 2 antib odies were not detec yamini. No labor atory evide nce of HIV infec tion. Not Available [facility] (Lab) [address], [place], [address], 09/30/2024 12:35:45 09/30/1909/29/2024 RPR SCREE N, REFLE X TITER /CONF IRMAT ION RPR qualitative Nonrea ctive nonrea ctive Not Available [facility] (Lab) [address] [place], [address], 09/30/2024 12:35:45 07/31/19 25 07/31/2024 US, obste tric, 2nd or 3rd trime ster No observ ation record ed. [email or web address] [place] [address], [place], [address], 07/31/2024 17:58:51 07/31/19 25 07/31/2024 US, obste tric, follo w-up No observ ation record ed. [email or web address] [address], [place], [address], 08/04/2024 13:23:55 08/28/19 25 08/28/2024 US, obste tric, follo w-up No observ ation record ed. [email or web address] [place] [address], [place], [address], 08/28/2024 18:29:50 08/28/19 25 08/28/2024 US, obste tric, follo w-up No observ ation record ed. [email or web address] [address], [place], [address], 08/29/2024 22:54:05 08/28/19 25 08/28/2024 US, obste tric, follo w-up No observ ation record ed. [address], [place], [address], 08/28/2024 22:50:03 08/29/19 25 08/29/2024 US, doppl er, venou s No observ ation record ed. [email or web address] [facility], [place], [address], 08/30/2024 15:44:30 08/29/19 25 08/29/2024 US, doppl er, venou s No observ ation record ed. [email or web address] [address], [place], [address], 08/30/2024 15:44:30 09/14/19 25 09/13/2024 US, obste tric, follo w-up No observ ation record ed. [email or web address] [facility] [address] [place], [address], 09/13/2024 23:51:24 09/14/19 25 09/13/2024 US, obste tric, follo w-up No observ ation record ed. [email or web address] [facility] [address] [place], [address], 09/18/2024 11:09:25 10/12/19 25 10/11/2024 US, obste tric, follo w-up No observ ation [facility]. [email or web address] [address], [place], [address], 10/11/2024 17:17:34 10/12/19 25 10/11/2024 US, obste tric, follo w-up No observ ation record ed. [email or web address] [address], [place], [address], 10/19/2024 18:35:58 Result Notes None recorded. Problems Name Problem SNOMED Code Status Onset Date Resolution Date Notes Provider Name and Address Organization Details Recorded Time 99636630 Active 2023 Karin dawson, [facility] 4 16:57:16 Acid reflux 475698037 Active Niranjan Leroy MD [address], [place], [address], [facility] 5 16:31:38 Marginal insertion of umbilical cord 25270353 Active serial growth [facility]any [facility] 5 13:23:27 Edema of lower extremity 780985401 Active UNILATERA L, RIGHT SIDE Order faxed to [facility] for Rpt venous doppler 08/28 scheduled [facility] 08/29 0900 [facility] 1:00PM Level II us & consult - [facility] refer pt to Vacular Surgery -10/18/24 Mahogany Jimenez samir, [facility] 5 16:18:45 Palpitati ons 82529436 Active 72 holter monitor - order faxed 10/18 [facility] cardiolog y [facility] 5 16:19:23 Palpitati ons 53321653 Active 72 holter monitor - order faxed 10/18 [facility] cardiolog y Mahogany Jimenez [facility] 5 16:19:23 Problem Notes None recorded. Procedures Surgical History Date Name Laterality Status Provider Name and Address Organization Details Recorded Time 10/08/19 24 Date of Last Pap Smear completed [facility] 05/12/2024 13:54:02 11/05/19 21 Laparoscopy completed [facility] 12/11/2020 19:21:46 04/04/20 20 Dilation and Curettage completed [facility] 12/11/2020 19:21:22 08/05/19 19 extraction of wisdom tooth completed [facility] 12/11/2020 19:21:03 Imaging Results Imaging Date Name Status LastModified by Organiz ation Details LastModified Time 07/31/2024 US, obstetric, 2nd or 3rd trimester completed [email or web address] [place] [address], [place], [address], 07/31/2024 17:58:51 07/31/2024 US, obstetric, follow-up completed [email or web address] [address], [place], [address], 08/04/2024 13:23:55 08/28/2024 US, obstetric, follow-up completed [email or web address] [place] [address], [place], [address], 08/28/2024 18:29:50 08/28/2024 US, obstetric, follow-up completed [email or web address] [address], [place], [address], 08/29/2024 22:54:05 08/28/2024 US, obstetric, follow-up completed [email or web address] [address], [place], [address], 08/28/2024 22:50:03 08/29/2024 US, doppler, venous completed [address], [address], 08/30/2024 15:44:30 08/29/2024 US, doppler, venous completed [address], [address], 08/30/2024 15:44:30 09/13/2024 US, obstetric, follow-up [facility] [address] [place] [address], [address], 09/13/2024 23:51:24 09/13/2024 US, obstetric, follow-up completed [address] [facility] [address] [place] [address], [address], 09/18/2024 11:09:25 10/11/2024 US, obstetric, follow-up completed [email or web address] [place] [address], [place], [address], 10/11/2024 17:17:34 10/11/2024 US, obstetric, follow-up active [email or web address] [address], [place], [address], 10/19/2024 18:35:58 Procedure Notes None recorded. Medical Equipment None [...] Address Organization Details Last Updated DateTime 08/28/2024 76994.9960 8 g 116 mm[Hg] 78 mm[Hg] Sophie Antonio [place] - [facility] 08/28/2024 14:50:59 Date Recorded Body height Body mass index (BMI) Body weight Systolic blood pressure Diastolic blood pressure Provider Name and Address Organization Details Last Updated DateTime 09/29/2024 162.56 cm 32.8 kg/m2 36627.14 g 116 mm[Hg] 71 mm[Hg] Scarlet Beltran [facility] 5 14:24:22 Date Recorded Body weight Body mass index (BMI) Body height Systolic blood pressure Diastolic blood pressure Provider Name and Address Organization Details Last Updated DateTime 10/11/2024 71902.69 689 g 33.8 kg/m2 162.56 cm 107 mm[Hg] 70 mm[Hg] Scarlet Beltran [facility] 5 15:30:10 Social History Question Answer Notes LastModified by Organizat ion Details LastModified Time Tobacco Smoking Status Current Every Day Smoker Scarlet Beltran [facility] 03/25/2021 10:37:51 Do You Have An Advance Directive? No [email or web address] Information not available 05/12/2024 What Is Your Level Of Alcohol Consumption? Occasional [email or web address] Information not available 12/11/2020 If You Are , What Was Your Level Of Alcohol Consumption Prior To ? None [email or web address] Information not available 03/25/2021 How Many Years Have You Consumed Alcohol? 7 Information not available 10/08/2023 Are You Blind Or Do You Have Difficulty Seeing? No [email or web address] Information not available 12/11/2020 What Is Your Level Of Caffeine Consumption? Occasional [email or web address] Information not available 12/11/2020 In The 14 Days Before Symptom Onset, Have You Had Close Contact With A Laboratory-confir med COVID-19 While That Case Was Ill? No Information not available 12/11/2020 In The 14 Days Before Symptom Onset, Have You Had Close Contact With A Person Who Is Under Investigation For COVID-19 While That Person Was Ill? No Information not available 12/11/2020 Have You Been To An Area Known To Be High Risk For COVID-19? No [email or web address] Information not available 12/11/2020 Are You Deaf Or Do You Have Serious Difficulty Hearing? No [email or web address] Information not available 12/11/2020 What Type Of Diet Are You Following? REGULAR [email or web address] Information not available 12/11/2020 Do You Or Have You Ever Used E-cigarettes Or Vape? Current User Of Electronic Cigarettes [email or web address] Information not available 03/25/2021 What Is The Highest Grade Or Level Of School You Have Completed Or The Highest Degree You Have Received? 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 No Information not available 10/08/2023 Have You Ever Been Counseled For Unhealthy Alcohol Use? No [email or web address] Information not available 03/25/2021 Do You Use Protection During Sex? No [email or web address] Information not available 03/25/2021 Do You Use Your Seat Belt Or Car Seat Routinely? Yes [email or web address] Information not available 12/11/2020 Do You Have Smoke And Carbon Monoxide Detectors In Your Home? Yes [email or web address] Information not available 12/11/2020 At What Age Did You Start Smoking Tobacco? 16 Information not available 10/08/2023 Do You Or Have You Ever Used Smokeless Tobacco? Never Used Smokeless Tobacco Information not available 03/25/2021 How Much Tobacco Do You Smoke? 0.5 PPD Information not available 10/08/2023 Do You Feel Stressed (tense, Restless, Nervous, Or Anxious, Or Unable To Sleep At Night)? [id number] Information not available 10/08/2023 Do You Use Any Illicit Or Recreational Drugs? No [email or web address] Information not available 12/11/2020 Do You Use Sunscreen Routinely? Yes [email or web address] Information not available 12/11/2020 Has Tobacco Cessation Counseling Been Provided? No [email or web address] Information not available 03/25/2021 Have You Used IV Drugs? No Information not available 03/25/2021 Do You Or Have You Ever Used Any Other Forms Of Tobacco Or Nicotine? Yes Information not available 03/25/2021 Sex: Unknown Functional Status Question Answer Note LastModified by Organizat ion Details LastModified Time Do you have difficulty walking or climbing stairs? No Information not available 07/07/2022 Are you able to walk? YESWOREST [email or web address] Information not available 12/11/2020 Are you able to care for yourself? Yes Information not available 07/07/2022 Do you have difficulty dressing or bathing? No Information not available 07/07/2022 What is your exercise level? Occasional [email or web address] Information not available 12/11/2020 Mental Status None recorded. Family History Relationship Description Onset Age of this Age Resolved Age Notes LastModified by Organization Details LastModified Time Maternal Grandmother Malignant tumor of colon age unsure [email or web address] Not available 12/11/2020 19:14:43 Maternal Grandmother Diabetes mellitus [email or web address] Not available 12/11 19:18:00 Paternal Uncle Diabetes mellitus [email or web address] Not available 12/11 19:18:11 Paternal Uncle Schizophreni a [email or web address] Not available 2023 15:41:43 Mother Anxiety disorder [email or web address] Not available 12/11 19:19:14 Mother Depressive disorder [email or web address] Not available 12/11 19:19:19 Maternal Aunt Multiple sclerosis [email or web address] Not available 12/11 19:19:37 Medical History Condition [...] N Thrombophilias N Gynecological History Statement/Question Response Flow Moderate Date of Last Mammogram Date of LMP 03/20/2024 On BCP's at Conception? N STIs/STDs N Was last menstrual period normal Y HPV Vaccine Y Duration of Flow (days) 3 Current Control Method Are cycles usually normal Y Date of Last Colonoscopy Frequency of Cycle (Q days) 26 Sexually Active? Y Menses Monthly Y Date of DEXA bone scan Age of first menstrual cycle 13 Date of Last Pap Smear 10/08/2023 Sexual Problems? N LMP Definite Desired Control Method Obstetrics History GPAL:G 3 P 0 0 2 0 Type Value Spontaneous 1 Living 0 Ectopics 1 Total 3 Past Encounters Encounter ID Performer Location Encounter Start Date Encounter Closed Date Diagnosis/Indication Diagnosis SNOMED-CT Code Diagnosis ICD10 Code [id number] [address],[place] [address] 12/11/2020 15:03:37 12/11/2020 16:52:07 Contraception care management 144400419 Z30.9 [id number] [facility] [address],[place] [address] 03/25/2021 10:29:58 03/25/2021 12:03:09 Contraception care management 116093457 Z30.9 [id number] CHINA Hatfield [place] [address],[place] [address] 07/07/2022 14:52:06 07/07/2022 15:47:35 Pain in pelvis 71969854 R10.2 Today we reviewed the various causes [...] plan of care. Venereal d isease screening 408314842 Z11.3 [id number] Mayra Villagomez [place] [address],[place] [address] 07/20/2022 14:01:43 07/20/2022 14:44:39 Pain in pelvis 18271075 R10.2 [id number] Ema Goldstein [facility] [place] [address],[place] [address] 07/27/2022 14:25:22 07/27/2022 16:10:45 Pain in pelvis 27081094 R10.2 Today we reviewed recent TVUS - normalPelv ic pain has mostly resolved. We discussed BC options in-depth. Declines at this time. Meghan KWOK in the near future. Encouraged daily PNV.We [...] counseling and review of plan of care. [id number] Ema Goldstein [facility] [place] [address],[facility] [address] 10/08/2023 12:02:18 10/08/2023 14:40:15 Gynecologic examination 21508453 Z01.419 WWEpap updateddec lined STI screenenco uraged [...] of today's plan if desired. Breast lump 71758504 N63 .0 left breast u/s order given to pt [id number] Marjorie Ramospalmer [place] [address],[place] [address] 04/28/2024 12:32:47 05/01/2024 10:14:42 Uncertain viability of 560581342 O36.80X9 Z3A.01 [id number] [facility] [address],[place] [address] 05/12/2024 14:19:40 05/12/2024 14:50:39 [id number] Karie Parmar [facility] [address] [place] [address] 05/12/2024 14:19:54 05/12/2024 16:59:32 Venereal disease screening 582865148 Z11.3 Amenorrhea 38945409 N91. 2 [id number] [facility] [address],[place] [address] 06/06/2024 15:41:35 06/06/2024 16:42:54 screening 808081913 Z36.82 Z3A.11 [id number] HEATH SUN MD [place] [address] [place] [address] 06/06/2024 15:42:31 06/06/2024 18:21:27 Routine care 264811538 Z34.90 [id number] Niranjan Leroy MD [place] [address] [place] [address] 07/07/2024 11:41:25 07/07/2024 13:16:11 Routine care 488751012 Z34.90 [id number] [facility] [address],[place] [address] 07/07/2024 11:53:34 07/07/2024 13:36:31 Abdominal pain in 888623739 O99.891 Z3A.15 [id number] [facility] [address],[place] [address] 07/31/2024 14:27:44 07/31/2024 15:45:54 screening for malformation 258179043 Z36.3 Z3A.19 [id number] Niranjan Leroy MD [place] [address],[place] [address] 07/31/2024 14:28:07 07/31/2024 16:41:53 Routine care 811681165 Z34.90 [id number] Niranjan Leroy MD [place] [address],[place] [address] 08/15/2024 10:56:59 08/15/2024 12:29:56 Routine care 191502983 Z34.90 [id number] [facility] [address],[place] [address] 08/28/2024 13:50:38 08/28/2024 14:33:47 Placental condition affecting management of mother 097908447 O43.102 Z36.2 Z3A.23 [id number] Niranjan Leroy MD [place] [address],[place] [address] 08/28/2024 13:51:41 08/28/2024 15:28:10 Routine care 855481084 Z34.90 [id number] [facility] [address],[place] [address] 09/29/2024 13:58:28 09/29/2024 15:17:42 Gestation period, 27 weeks 93633294 Z3A.27 [id number] [facility] [address] [address] 10/11/2024 14:29:02 10/11/2024 15:48:10 Marginal insertion of umbilical cord 00035602 O43.129 Z3A.29 [id number] [facility] [address] [address] 10/11/2024 14:29:59 10/11/2024 16:58:26 Gestation period, 29 weeks 80357860 Z3A.29 Health Concerns Section Related Observation LastModified by Organization Detai ls LastModified Time None Recorded Concern Status LastModified by Organization Details LastModified Time None Recorded Advance Directives Directive N: Payers Encounter Date Sequence Insurance Name Policy Number Policy Corona Covered Member ID Corona Member ID Guarantor Name 08/28/2024 1 [facility] [employer] Gerri Loaiza [id number] OI Gerri Loaiza 08/28/2024 1 [facility] [employer] Gerri Loaiza [id number] OI Gerri Loaiza 09/29/2024 1 [facility] [employer] Gerri Loaiza [id number] OI Gerri Loaiza 10/11/2024 1 [facility] [employer] Gerri Loaiza [id number] OI Gerri Loaiza 10/11/2024 1 [facility] [employer] Gerri Loaiza [id number] OI Gerri Loaiza OBGyn Episode Ob Episode Information Episode Created Date Number of Fetuses Patient Bloodtype Patient rh Status Prepregnancy Weight lbs Domestic Partner Domestic Partner Phone Father Name Casting Tester Status 12/12/19 21 1 CLOSED Fetus Data First Name Last Name Admitted to NICU Weight (g) Sex Living Outcome Pediatric Complications Fetus ID Race Codes Race Delivery Type , Spontane ous [id number] Mack Calculation Initial Mack Date Initial Exam [...] Domestic Partner Domestic Partner Phone Father Name Casting Tester Status 12/12/19 21 1 CLOSED Fetus Data First Name Last Name Admitted to NICU Weight (g) Sex Living Outcome Pediatric Complications Fetus ID Race Codes Race Delivery Type Ectopic [id number] Mack Calculation Initial Mack Date Initial Exam [...] Domestic Partner Domestic Partner Phone Father Name Casting Tester Status 06/06/20 24 1 O Positive 170 Keagan Josse OPEN Fetus Data First Name Last Name Admitted to NICU Weight (g) Sex Living Outcome Pediatric Complications Fetus ID Race Codes Race Delivery Type [id number] Problems Problem Notes prominent stomach on USvenou s doppler wnl 08/12 [facility] repeat doppler/ Referral [facility] faxed 08/28- cancelled [facility] appt 10/11 pt scheduled here. pt to follow up with [facility] after see vascular surgery Problem Name Start Date End Date Resolution Snomed Code Not e Marginal insertion of umbilical cord 18229300 serial growth Palpitations 96676747 72 huynh er monitor - order faxed 10/18 [facility] outpatient cardiology Edema of lower extremity 396998950 UNILATERAL, RIG HT SIDE Order faxed to [facility] for Rpt venous doppler 08/28 scheduled [facility] 08/29 0900referral faxed to [facility] 08/28 [facility] 09/13/24 1:00PM Level II us & consult - [facility] refer pt to Vacular Surgery -10/18/24 Acid reflux 577676894 Mack Calculation Initial Mack Date Initial Exam [...] Date Ultra Sound Latest Days Gestation 0 [email or web address] 06/06/2024 12/26/19 25 0 Pre-ellen Flowsheet Flowsheet Date 06/06/2024 Kelly Score Blood Edema Fundus Height Fundus Units Glucose Ketones Leukocytes Nitrite Labor Signs Protein Cervic Dilation Cervic Effacement Cervic Station Type Weight in lbs Pre/Post Dialysis Refused Weight 170.590349867248 BP Diastolic BP Location Tested BP Systolic BP Type 75 L arm 116 sitting Fetus Heart Rate Present A 167 Fetus Movement Comments Patient presents to [facility] care. Overall feeling well, no [...] Type Weight in lbs Pre/Post Dialysis Refused 177.019445737160 BP Diastolic BP Location Tested BP Systolic [...] Type Weight in lbs Pre/Post Dialysis Refused 178.317429061107 BP Diastolic BP Location Tested BP Systolic [...] Type Weight in lbs Pre/Post Dialysis Refused 182.421454407659 BP Diastolic BP Location Tested BP Systolic [...] Type Weight in lbs Pre/Post Dialysis Refused 184.190743853927 BP Diastolic BP Location Tested BP Systolic BP Type 78 L arm 116 sitting Fetus Heart Rate Present A 145 Fetus Movement A Yes Comments Unilateral leg swelling on t he right persist. Repeat Dopplers and referred to [facility]. Flowsheet Date 09/29/2024 Kelly Score Blood Edema Fundus Height Fundus Units Glucose Ketones Leukocytes Nitrite Labor Signs Protein Cervic Dilation Cervic Effacement Cervic Station trace Type Weight in lbs Pre/Post Dialysis Refused Weight 191.856933249673 BP Diastolic BP Location Tested BP Systolic BP Type 71 116 Fetus Heart Rate Present Fetus Movement A Yes Comments Patient is having discharge, hip and pelvic pain and swelling. has maternity belt, sees vascular surgeon later this month. +FM reviewed kick counts, ok for tdap f/u 2 weeks, would like to do growth US here Flowsheet Date 10/11/2024 Kelly Score Blood Edema Fundus Height Fundus Units Glucose Ketones Leukocytes Nitrite Labor Signs Protein Cervic Dilation Cervic Effacement Cervic Station Type Weight in lbs Pre/Post Dialysis Refused BP Diastolic BP Location Tested BP Systolic BP Type Fetus Heart Rate Present Fetus Movement Comments Flowsheet Date 10/11/2024 Kelly Score Blood Edema Fundus Height Fundus Units Glucose Ketones Leukocytes Nitrite Labor Signs Protein Cervic Dilation Cervic Effacement Cervic Station neg none Type Weight in lbs Pre/Post Dialysis Refused 197.366314782245 BP Diastolic BP Location Tested BP Systolic BP Type 70 107 Fetus Heart Rate Present Fetus Movement A Yes Comments Patient is having BH contrac tions and swelling. doing well +FM has appt with vascular on 10/18, efw 82%, precautions and education f/u 2 weeks Menstrual History Last Menstrual Date Menses Monthly [...]
--- OUTSIDE RECORDS SUMMARY | 2024-10-20 09:09 | XMS_ITS | Clinical Summary ---
Author Organization [facility] Address [address] [place] [address] [place] [id number] Care Team Providers Care Belt Sander Name Role Phone Unavailable Primary Care Provider Unavailabl e Source Comments [facility],non-owned Affiliates and Associated Physician Practices is amultiple site organization consisting of ambulatory clinics and hospital sitesin [place], [place]. This disclosure is being madepursuant to the Care Everywhere program and may not contain all information available regarding this patient. Last updated 18.[facility] Allergies No known active allergies Medications * Be aware that medications may not be up to date on this document. Alwaysverify current medications with the patient. Vit-DSS-Fe Fum-FA ( vitamin with iron) tablet Take 1 (one) tablet by mouth once daily Active Active Problems Problem Noted Date Diagnosed Date Obesity affecting in second trimester 09/18/2024 BMI 32.0-32.9,adult 09/18/2024 Swelling of lower extremity during in second trimester 09/18/2024 Estimated Date of Delivery Comme nts Yes 12/25/2024 Based on last me nstrual period of 03/20/2024 Encounters Date Type Department Care Team Description 10/02/2024 [facility]phone [facility] [address] [place] [id number] Brittany Dacosta RN Future Appointment (Mahogany called to confirm patient wants to do her FU growth US at her primary OB office. Patient is scheduled for 10/11/24 with WIND TECHNICIAN/US with M. Patient awaiting vascular surgeon appt. ) 09/13/2024 1:07 PM CDT - 09/13/2024 11:59 PM CDT Hospital Encounter [facility] [address] [place] [address] uJlieta Ann MD Discharge Disposition: Home or Self Care 09/13/2024 1:00 PM CDT - 09/13/2024 1:06 PM CDT [facility] [address] [place] [address] Julieta Ann MD Discharge Disposition: Home or Self Care from Last 3 Months Social History Tobacco Use Types Packs/Day Years Used Date Smoking Tobacco: Never Assessed Estimated Date of Delivery Comme nts Yes 12/25/2024 Based on last me nstrual period of 03/20/2024 Sex and Gender Information Value Date Recorded Sex Assigned at Not on file 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 Gender Identity Not on file Sexual Orientation Not on file Last Filed Vital Signs Vital Sign Reading Time Taken Comments Blood Pressure 103/71 09/13/2024 2:16 PM CDT Pulse 67 09/13/2024 2:16 PM CDT Temperature - - Respiratory Rate - - Oxygen Saturation - - Inhaled Oxygen Concentration - - Weight 85 kg (187 lb 6.4 oz) 09/13/2024 2:16 PM CDT Height 163 cm (5' 4.17 ) 09/13/2024 2:16 PM CDT Body Mass Index 31.99 09/13/2024 2:16 PM CDT Plan of Treatment Health Maintenance Due Date Last Done Comments PAP SMEAR 1996 HIV SCREENING 09/07/2011 HEPATITIS C SCREENING 09/02/2014 DTAP/TDAP/TD VACCINES (1 - Tdap) 09/07/2015 HEPATITIS B VACCINE (1 of 3 - 19+ 3-dose series) 09/07/2015 COVID-19 VACCINE ( - 2023-2 5 season) 2024 DEPRESSION SCREENING 07/05/2024 OB-ONE HOUR GLUCOSE 09/18/2024 OB-TDAP CURRENT 09/25/2024 OB-RHOGAM INJECTION 10/02/2024 INFLUENZA VACCINE (Season Ended) 2025 ZOSTER VACCINE (1 of 2) 2046 HIB VACCINE Aged Out No longer eligi ble based on patient's age to complete this topic HPV VACCINE Aged Out No longer eligi ble based on patient's age to complete this topic MENINGOCOCCAL (Group B) VACC INE SHARED DECISION-MAKING Aged Out No longer eligibl e based on patient's age to complete this topic MENINGOCOCCAL GROUPS A/C/Y/W VACCINE Aged Out No longer eligible b ased on patient's age to complete this topic PNEUMOCOCCAL VACCINE Aged Out No long er eligible based on patient's age to complete this topic Respiratory Syncytial Virus (RSV) Vaccine Pt: or over 60 yrs (No Doses Required) Completed Procedures Procedure Name Priority Date/Time Associated Diagnosis Comments SONOGRAM - COMPLETE Routine 09/13/2024 1 :04 PM CDT Swelling of lower extremity during , antepartum Encounter for anatomic survey 25 weeks gestation of Elevated d-dimer from Last 3 Months Results * SONOGRAM - COMPLETE (09/13/2024 1:04 PM CDT) Linked Results Indication ======== Anatomy Screen Maternal Right Leg Swelling History ====== OB History 3. Para 0 [id number] 1. miscarriage 2019 2. ectopic 2020 Lab Tests Test Date Result NIPT Low risk, Male Maternal Assessment Physical Exam Height 163 cm, 5 ft 4 in. Weight 85 kg, 187 lb. Initial weight 83 kg, 184 lb. BMI 32.10 kg/m . Initial BMI 31.58 kg/m . Weight gain 1 kg, 3 lb Method ====== Transabdominal ultrasound. View: Sufficient ========= Choudhary . Number of fetuses: 1 Dating ====== Date Details Gest. age STELLA LMP 03/20/2024 25 w + 2 d 12/25/2024 U/S 09/13/2024 based upon AC, BPD, Femur, HC 26 w + 1 d 12/19/2024 Assigned dating based on the LMP, selected on 09/13/2024 25 w + 2 d 12/25/2024 General Evaluation Cardiac activity present. FHR 121 bpm. Presentation: cephalic Placenta: Placental site: posterior Umbilical cord: Cord vessels: 3 vessel cord. Insertion site: normal insertion Amniotic fluid: Amount of AF: normal. MVP 5.0 cm Biometry BPD 64.5 mm 26w 1d 69% Hadlock HC 231.5 mm 25w 1d 24% Hadlock Cerebellum tr 30.4 mm 94% [place] AC 221.9 mm 26w 4d 81% Hadlock Femur 49.7 mm 26w 5d 80% Hadlock Humerus 43.4 mm 25w 6d 63% Aleta HC / AC 1.04 -/- Hadlock Weight Calculation: EFW 944 g 87% Hadlock EFW (lb,oz) 2 lb 1 oz EFW by Hadlock ([id number]) appropriate Growth Overview Exam date GA BPD (mm) HC (mm) AC (mm) FL (mm) HL (mm) EFW (g) 09/13/2024 25w 2d 64.5 69% 231.5 24% 221.9 81% 49.7 80% 43.4 63% 944 87% Anatomy The following structures appear normal: Head / Neck Cranium. Lateral ventricles. Choroid plexus. Midline falx. Cavum septi pellucidi. Cerebellum. Cisterna magna. Thalami. Face Lips. Nose. Orbits. Heart / Thorax 4-chamber view. RVOT view. LVOT view. 3-vessel view. 4-bjkrtr-imgsjsn view. Situs. Bicaval view. Ductal arch view. Great vessels. Right lung. Left lung. Diaphragm. Abdomen Cord insertion. Stomach. Kidneys. Bladder. Genitals. Spine Cervical spine. Thoracic spine. Lumbar spine. Sacral spine. Extremities / Skeleton Arms. Hands. Legs. Feet. The following structures could not be adequately visualized: Face Profile. Heart / Thorax Aortic arch view. sex: male. Maternal Structures Right Ovary Normal Appearance: Adnexa appears normal Left Ovary Normal Appearance: Adnexa appears normal Impression ========= Single, live, intrauterine at 25w 2d size is appropriate Amniotic fluid volume: normal Posterior placenta, not a previa. No major malformations were seen within the limitations of ultrasound Follow-up ======== Follow up US in 4 weeks, to complete the anatomic survey and to assess interval growth. See separate [facility] visit note. Coding ====== Procedures 60879: US Preg Uterus Detailed [facility] [employer] PACS Anatomical Region Laterality Modality Other 09/13/2024 1:04 PM CDT R Jimi Leroy MD [facility] ORDERABLES Edited Result - Final from Last 3 Months Insurance [employer]
--- OUTSIDE RECORDS SUMMARY | 2024-10-20 09:09 | XMS_ITS | Encounter Summary ---
Author Organization [facility] Address [facility] [place] [address] Care Team Providers Care Color Expert Name Role Phone Niranjan Leroy MD Primary Care Provider [phone] Reason for Visit * Reason Comments Edema Encounter Details Date Type Department Care Team (Late st Contact Info) Description 10/18/2024 10:15 AM CDT Office Visit [facility] [address] [place] [address] Amish Marie MD [address] [id number] Edema Social History Tobacco Use Types Packs/Day Years [...] declined 04/26/2020 How often do you attend mu-ism or jewish serv ices? Patient declined 04/26/2020 Do you belong to any clubs o r organizations such as mu-ism groups, unions, fraternal or athletic groups, or [...] and heating? 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 Legal Sex Female 8:08 AM CDT Gender Identity Not on file Sexual Orientation Not on file documented as of this encounter Last Filed Vital Signs Vital Sign Reading Time Taken Comments Blood Pressure 104/70 10/18/2024 11:05 AM CDT Pulse 70 10/18/2024 11:05 AM CDT Temperature - - Respiratory Rate - - Oxygen Saturation - - Inhaled Oxygen Concentration - - Weight 90.4 kg (199 lb 6.4 oz) 10/18/2024 11:05 AM CDT Height 167.6 cm (5' 6 ) 10/18/2024 11:05 AM CDT Body Mass Index 32.18 10/18/2024 11:05 AM CDT documented in this encounter Patient Instructions * Attachments The following attachments cannot be sent through Care Everywhere. * Swelling ([place]) documented in this encounter Progress Notes * Amish Marie MD - 10/18/2024 10:15 AM CDT Reason for Visit: Edema History of Present Illness: This is a 29-year-old female who is at 30 weeks gestation. The patient reports swelling of the lower extremities left greater than right. The swelling has significantly increased during the second trimester. Imaging of the lower extremities revealed no deep vein thrombosis. The patient denies history of superficial thrombophlebitis or deep vein thrombosis. She reports no issues with blood pressure. She denies headaches. She reports no large varicose veins. Recommendations and Plan: The patient appears to have normal gestational swelling of the lower extremities. I recommended daily compression stocking use. If no significant change following delivery, return to office. Subjective Medications: Current Outpatient Medications: buPROPion (WELLBUTRIN) 75 MG tablet, bupropion HCl 75 mg tablet, Disp: , Rfl: busPIRone (BUSPAR) 15 MG tablet, buspirone 15 mg tablet, Disp: , Rfl: Docusate Sodium (COLACE OR), Take as directed., Disp: , Rfl: norethindrone-ethinyl estradiol (07/24) 1-20 MG-MCG tablet, Take 1 tablet by mouth daily., Disp: , Rfl: ( VITAMINS) 28-0.8 MG tablet, Take 1 tablet by mouth daily., Disp: , Rfl: Review of patient's allergies indicates: No Known Allergies Past Medical History[1] Past Surgical History[2] Social History[3] Family History[4] Family Status Relation Name Status MGM (Not Specified) No partnership data on file Review of Systems Constitutional: Negative. HENT: Negative for headaches. Eyes: Negative for blurred vision. Respiratory: Negative. Cardiovascular: Positive for leg swelling. Gastrointestinal: Negative. Genitourinary: Negative. Musculoskeletal: Negative for myalgias and new or worsening joint stiffness/pain. Neurological: Negative for tingling/numbness. Endo/Heme/Allergies: Negative. Psychiatric/Behavioral: Negative. Vitals: 10/18/24 1105 BP: 104/70 Pulse: 70 Weight: 90.4 kg (199 lb 6.4 oz) Height: 1.676 m (5' 6 ) Body mass index is 32.18 kg/m??. Objective Cardiac Exam Rate/Rhythm: PMI: Pulses: Heart Sounds: Murmurs: Edema left: 1+. Edema Right: 1+. Physical Exam Constitutional: No distress. HENT: Eyes: Neck: Abdomen: Pulmonary: Effort normal. Skin: Dry. Musculoskeletal: No tenderness. Neurological: Alert. Oriented x 3. cranial nerves II through XII intact. Normal motor skills. Comments: Diagnoses/Impression: 1. Swelling of lower extremity during in second trimester (HHS/HCC) Referring Provider: No ref. provider found PCP: NIRANJAN LEROY MD [1] History reviewed. No pertinent past medical history. [2] Past Surgical History: Procedure Laterality Date DENTAL PROCEDURE x4 wisdom teeth removal DILATION AND CURETTAGE 06/2020 [3] Social History Tobacco Use Smoking status: Every Day Current packs/day: 1.00 Average packs/day: 1 pack/day for 7.0 years (7.0 ttl pk-yrs) Types: Electronic Cigarettes, Cigarettes Smokeless tobacco: Never Substance Use Topics Alcohol use: Yes Alcohol/week: 0.0 - 10.0 standard drinks of alcohol Drug use: Never [4] Family History Problem Relation Name Age of Onset Diabetes Maternal Grandmother documented in this encounter Plan of Treatment Not on file documented as of this encounter Visit Diagnoses Diagnosis Swelling of lower extremity during in second trimester (HHS/HCC)- Primary documented in this encounter Care Teams Color Expert Relationship Specialty Start Date End Date Nrianjan Leroy MD [address] [place] [id number] PCP - General [facility] 08/11/24 documented as of this encounter
== END 2024-10-20 09:05 | disposition home or self-care (01) ==
LOC: ANHCARD 09:05
PROVIDERS: Visit Provider Obstetrics & Gynecology
DX: R00.2 Palpitations (principal)
CPT/HCPCS: 93242

== ENCOUNTER 2024-12-15 22:05 | Observation (INO) | payer OTHER, SELFPAY ==
--- OUTSIDE RECORDS SUMMARY | 2024-12-16 00:59 | XMS_ITS | Clinical Summary ---
Author Organization [facility] Address [facility] [facility] [place] [address] Care Team Providers Care Commercial Or Institutional Cleaner Name Role Phone Unavailable Primary Care Provider Unavailabl e Source Comments [facility],non-owned Affiliates and Associated Physician Practices is amultiple site organization consisting of ambulatory clinics and hospital sitesin [place], [place], [place] and [place]. This disclosure is being madepursuant to the Care Everywhere program and may not contain all information available regarding this patient. Last updated 18.[facility] Allergies No known active allergies Medications * [...] Type Department Care Team Description 10/02/2024 Telephone [facility] [address] [place] [address] Brittany Dacosta RN Future Appointment (Mahogany called to confirm patient wants to do her FU growth US at her primary OB office. Patient is scheduled for 10/11/24 with TELECOMMUNICATIONS ADMINISTRATOR/US with [facility]. Patient awaiting vascular surgeon appt. 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
--- OUTSIDE RECORDS SUMMARY | 2024-12-16 01:00 | XMS_ITS | Data Portability ---
Author Organization [facility] Address [address] [place] [address] Assessment Encounter Date Assessment Date Assessment LastModified by Organization Details LastModified Time 11/24/2024 11/24/2024 Patient is ___weeks . Discussed plan. Not available 11/24/2024 16:18:06 12/01/2024 12/01/2024 Patient is ___weeks . Discussed plan. Not available 12/01/2024 16:36:10 12/06/2024 12/06/2024 Patient is _37__weeks . Discussed plan. [email or web address] Not available 12/06/2024 15:42:51 12/13/2024 12/13/2024 Patient is _38__weeks . Discussed plan. [email or web address] Not available 12/13/2024 15:50:21 Plan of Treatment Reminders Order Date Submit Date Provider Last Modified By Organization Details Last Modified Time Details Appointments OB ROUTINE 2024 11:30A Rajan SUN MD Not available Not available Not available Lab None recorded . Referral None recorded . Procedures None recorded . Surgeries None recorded . Imaging US, obstetri c, follow-u p 2024 025 [email or web address] Telephone, [address], [address], [place], [address], 12/06/2024 16:29:59 Medication Orders None recorded . Patient TargetsNo targets recorded. Patient InstructionsNo instructions recorded. Reason for Referral None Reported. Results Created Date Observation Date Name Description Value Unit Range Abnormal Flag Note LastModifiedBy Organization Detail LastModifiedTime 11/25/19 25 11/24/2024 CULTU RE: GROUP B STREP SCREE N, REFLE X SUSCE PTIBI LITY result report SEE RESULT S BELOW Test: Cultu re: Group B Strep , Refle x Susce ptibi lity ([facility]/ [facility]/K H/[facility] ) Speci men Sourc e: Vagin a/Rec diamond Speci men Type: Vagin al/Re ctal Speci men Date: 2024 1557 Resul t Date: 2024 1408 Resul t Statu s: Final resul t Abnor mal: No Resul ting Lab: [facility] [address] [facility] [address] Tel: CULTU RE ----- ----- ----- --- No Group B strep isola yamini at 2 days (mahsa ctive broth enhan cemen t) Not Available [facility] (Lab) [address], [place], [address], 11/27/2024 15:10:47 10/28/19 25 10/20/2024 kiarra r monit or No observ ation record ed. [address], [address], 10/30/2024 09:53:14 10/28/19 25 10/18/2024 kiarra r monit or No observ ation record ed. [address] (Pulmonary) [address] [place] [address], [address], 10/30/2024 17:34:46 11/09/19 25 11/08/2024 US, anay spicero w-up No observ ation record ed. [facility] [address], [place], [address], 11/08/2024 13:37:13 11/09/19 25 11/08/2024 US, obste tric follo w-up No observ ation record ed. [email or web address] [address], [place], [address], 11/13/2024 21:56:21 12/07/19 25 12/06/2024 US, obste tric, follo w-up No observ ation record ed. [facility] [address], [place], [address], 12/06/2024 17:39:04 12/07/19 25 12/06/2024 US, obste tric, follo w-up No observ ation record ed. [email or web address] [address], [place], [address], 12/08/2024 06:27:21 Result Notes None recorded. Problems Name Problem SNOMED Code Status Onset Date Resolution Date Notes Provider Name and Address Organization Details Recorded Time 71549039 Active [facility] 16:57:16 Acid reflux 123116095 Active Niranjan Leroy MD [address], [place], [address], [facility] 5 16:31:38 Marginal insertion of umbilical cord 26364362 Active serial growth Mahogany Jimenez [facility] 5 13:23:27 Edema of lower extremity 457481688 Active UNILATERA L, RIGHT SIDE Order faxed to Trey for Rpt venous doppler 08/28 scheduled Trey 08/29 0900 [facility] 09/13/24 1:00PM Level II us & consult - [facility] refer pt to Vacular Surgery -10/18/24 Mahogany dawson [facility] 5 16:18:45 Palpitati ons 59314363 Active 72 holter monitor - order faxed 10/18 Trey outpatien t cardiolog y Mahogany Green null, [facility] 5 16:19:23 Palpitati ons 42388424 Active 72 holter monitor - [facility] 10[facility] Mahogany dawson, [facility] 5 16:19:23 Problem Notes None recorded. Procedures Surgical History Date Name Laterality Status Provider Name and Address Organization Details Recorded Time 10/08/19 24 Date of Last Pap Smear completed [facility] 05/12/2024 13:54:02 11/05/19 21 Laparoscopy completed [facility] 12/11/2020 19:21:46 04/04/20 20 Dilation and Curettage completed [facility] 12/11/2020 19:21:22 08/05/19 19 extraction of wisdom tooth completed [facility] 12/11/2020 19:21:03 Imaging Results None [...] Available Not Available Vitals Date Recorded Body height Body mass index (BMI) Body weight Systolic blood pressure Diastolic blood pressure Provider Name and Address Organization Details Last Updated DateTime 11/24/2024 162.56 cm 37.1 kg/m2 47372.95 g 130 mm[Hg] 79 mm[Hg] [facility] 16:18:41 Date Recorded Body weight Systolic blood pressure Diastolic blood pressure Provider Name and Address Organization Details Last Updated DateTime 12/01/2024 37995.1366 6 g 136 mm[Hg] 79 mm[Hg] [facility] 12/01/2024 16:37:19 Date Recorded Body weight Body mass index (BMI) Body height Systolic blood pressure Diastolic blood pressure Provider Name and Address Organization Details Last Updated DateTime 12/06/2024 72021.54 429 g 37.2 kg/m2 162.56 cm 113 mm[Hg] 76 mm[Hg] Scarlet Beltran [facility] 15:18:49 Date Recorded Body weight Body mass index (BMI) Body height Systolic blood pressure Diastolic blood pressure Provider Name and Address Organization Details Last Updated DateTime 12/13/2024 38197.32 14 g 37.8 kg/m2 162.56 cm 122 mm[Hg] 81 mm[Hg] Scarlet Beltran [facility] 15:39:11 Social History Question Answer Notes LastModified by Organizat ion Details LastModified Time Tobacco Smoking Status Current Every Day Smoker Scarlet Beltran [facility] 03/25/2021 10:37:51 Do You Have An Advance Directive? No [email or web address] Information not available 05/12/2024 If You Are , What Was Your Level Of Alcohol Consumption Prior To ? None [email or web address] Information not available 03/25/2021 How Many Years Have You Consumed Alcohol? 7 Information not available 10/08/2023 Are You Blind Or Do You Have Difficulty Seeing? No [email or web address] Information not available 12/11/2020 What Is Your Level Of Caffeine Consumption? Occasional [email or web address] Information not available 12/11/2020 In The 14 Days Before Symptom Onset, Have You Had Close Contact With A Laboratory-confir med COVID-19 While That Case Was Ill? No [email or web address] Information not available 12/11/2020 In The 14 Days Before Symptom Onset, Have You Had Close Contact With A Person Who Is Under Investigation For COVID-19 While That Person Was Ill? No [email or web address] Information not available 12/11/2020 Have You Been To An Area Known To Be High Risk For COVID-19? No [email or web address] Information not available 12/11/2020 Are You Deaf Or Do You Have Serious Difficulty Hearing? No Information not available 12/11/2020 What Type Of Diet Are You Following? REGULAR [email or web address] Information not available 12/11/2020 What Is The Highest Grade Or Level Of School You Have Completed Or The Highest Degree You Have Received? DA76824-1 [email or web address] Information not available 03/25/2021 Are There Any Guns Present In Your Home? No Information not available 10/08/2023 Have You Ever Been Counseled For Unhealthy Alcohol Use? No Information not available 03/25/2021 Do You Use Protection During Sex? No [email or web address] Information not available 03/25/2021 Do You Use Your Seat Belt Or Car Seat Routinely? Yes [email or web address] Information not available 12/11/2020 Do You Have Smoke And Carbon Monoxide Detectors In Your Home? Yes [email or web address] Information not available 12/11/2020 At What Age Did You Start Smoking Tobacco? 16 Information not available 10/08/2023 How Much Tobacco Do You Smoke? 0.5 PPD Information not available 10/08/2023 Do You Use Sunscreen Routinely? Yes [email or web address] Information not available 12/11/2020 Has Tobacco Cessation Counseling Been Provided? No Information not available 03/25/2021 Have You Used IV Drugs? No [email or web address] Information not available 03/25/2021 Do You Have Difficulty Walking Or Climbing Stairs? No Information not available 07/07/2022 Sex: Unknown Functional Status Question Answer Note LastModified by Organizat ion Details LastModified Time Do you use any illicit or recreational drugs? No [email or web address] Information not available 12/11/2020 Do you or have you ever used any other forms of tobacco or nicotine? Yes [email or web address] Information not available 03/25/2021 What is your level of alcohol consumption? Occasional [email or web address] Information not available 12/11/2020 Do you or have you ever used smokeless tobacco? Never used smokeless tobacco [email or web address] Information not available 03/25/2021 Are you able to walk? YESWOREST [email or web address] Information not available 12/11/2020 Are you able to care for yourself? 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 No Information not available 07/07/2022 Do you or have you ever used e-cigarettes or vape? Current user of electronic cigarettes [email or web address] Information not available 03/25/2021 What is your exercise level? Occasional [email or web address] Information not available 12/11/2020 Mental Status Question Answer Note LastModified by Organization D etails LastModified Time Do you feel stressed (tense, restless, nervous, or anxious, or unable to sleep at night)? [id number] Information not available 10/08/2023 Family History Relationship Description Onset Age of this Age Resolved Age Notes LastModified by Organization Details LastModified Time Maternal Grandmother Malignant tumor of colon age unsure Not available 12/11/2020 19:14:43 Maternal Grandmother Diabetes mellitus Not available 12/11 19:18:00 Paternal Uncle Diabetes mellitus [email or web address] Not available 12/11 19:18:11 Paternal Uncle Schizophreni a [email or web address] Not available 2023 15:41:43 Mother Anxiety disorder [email or web address] Not available 12/11 19:19:14 Mother Depressive disorder [email or web address] Not available 12/11 19:19:19 Maternal Aunt Multiple sclerosis [email or web address] Not available 12/11 19:19:37 Medical History Condition Response Allergies (Food, seasonal, environmental ) N Other Y Drug/Latex Allergies/Reactions N Blood Transfusion N Breast Cancer N Dermatologic Disorders N Lung Disease N Defects or Inherited Disease N Breast Problem N Gestational Diabetes N Hematologic disorders N Anesthesia Complications N History of STI N Deep Vein Thrombosis N Polycystic ovary syndrome N Anxiety Disorder Y Autoimmune disease N Arthritis N Polyps N Infertility N Acid Reflux (GERD) N History of abnormal pap N Cancer N Varicosities N Stroke N Neurologic/Epilepsy N Endometriosis N High Cholesterol N Fibromyalgia N Headaches N Kidney Disease N Heart Problems N [...] SNOMED-CT Code Diagnosis ICD10 Code Diagnosis Note [id number] Karie Parmar [place] [address] [address] 12/11/2020 15:03:37 12/11/2020 16:52:07 Contraception care management 855170379 Z30.9 08143 Karie Parmar [facility] [address],[place] [address] 03/25/2021 10:29:58 03/25/2021 12:03:09 Contraception care management 842900783 Z30.9 [id number] CHINA Hatfield Telephone [address],[place] [address] 07/07/2022 14:52:06 07/07/2022 15:47:35 Pain in pelvis 04448100 R10.2 Today we reviewed the various causes [...] plan of care. Venereal d isease screening 632641803 Z11.3 [id number] Niranjan Leroy MD Telephone [address],[place] [address] 07/20/2022 14:01:43 07/20/2022 14:44:39 Pain in pelvis 65776140 R10.2 [id number] CHINA Hatfield Telephone [address],[place] [address] 07/27/2022 14:25:22 07/27/2022 16:10:45 Pain in pelvis 42962701 R10.2 Today we reviewed recent TVUS - normalPelv ic pain has mostly resolved. We discussed BC options in-depth. Declines at this time. Meghan gary TTC in the near future. Encouraged daily [...] counseling and review of plan of care. [id number] CHINA Hatfield Telephone [address],[place] [address] 10/08/2023 12:02:18 10/08/2023 14:40:15 Gynecologic examination 90490688 Z01.419 WWEpap updateddec lined STI screenenco uraged [...] of today's plan if desired. Breast lump 71036048 N63 .0 left breast u/s order given to pt [id number] Niranjan Leroy MD Telephone [address],[place] [address] 04/28/2024 12:32:47 05/01/2024 10:14:42 Uncertain viability of 860661125 O36.80X9 Z3A.01 [id number] Niranjan Leroy MD Telephone [address],[place] [address] 05/12/2024 14:19:40 05/12/2024 14:50:39 [id number] [facility] [address],[place] [address] 05/12/2024 14:19:54 05/12/2024 16:59:32 Venereal disease screening 510374355 Z11.3 Amenorrhea 72515054 N91. 2 [id number] MD Sonja Finngean [address],[place] [address] 06/06/2024 15:41:35 06/06/2024 16:42:54 screening 476631278 Z36.82 Z3A.11 [id number] HEATH SUN MD Telephone [address],[place] [address] 06/06/2024 15:42:31 06/06/2024 18:21:27 Routine care 555635494 Z34.90 [id number] MD Sonja Finnegan [address],[place] [address] 07/07/2024 11:41:25 07/07/2024 13:16:11 Routine care 965148966 Z34.90 [id number] MD Sonja Finnegan [address],[place] [address] 07/07/2024 11:53:34 07/07/2024 13:36:31 Abdominal pain in 490275067 O99.891 Z3A.15 [id number] MD Sonja Finnegan [address],[place] [address] 07/31/2024 14:27:44 07/31/2024 15:45:54 screening for malformation 484696551 Z36.3 Z3A.19 [id number] Niranjan Leroy MD Telephone [address],[place] [address] 07/31/2024 14:28:07 07/31/2024 16:41:53 Routine care 636603594 Z34.90 [id number] Niranjan Leroy MD Telephone [address],[place] [address] 08/15/2024 10:56:59 08/15/2024 12:29:56 Routine care 672707419 Z34.90 [id number] Niranjan Leroy MD Telephone [address],[place] [address] 08/28/2024 13:50:38 08/28/2024 14:33:47 Placental condition affecting management of mother 751955594 O43.102 Z36.2 Z3A.23 [id number] Niranjan Leroy MD Telephone [address],[place] [address] 08/28/2024 13:51:41 08/28/2024 15:28:10 Routine care 877690203 Z34.90 [id number] Karie Parmar CNM Telephone [address],[place] [address] 09/29/2024 13:58:28 09/29/2024 15:17:42 Gestation period, 27 weeks 05455088 Z3A.27 [id number] Niranjan Leroy MD Telephone [address],[place] [address] 10/11/2024 14:29:02 10/11/2024 15:48:10 Marginal insertion of umbilical cord 68197092 O43.129 Z3A.29 [id number] Karie Parmar CNM Telephone [address],[place] [address] 10/11/2024 14:29:59 10/11/2024 16:58:26 Gestation period, 29 weeks 16822671 Z3A.29 [id number] Karie Parmar CNM Telephone [address],[place] [address] 10/27/2024 14:51:57 10/27/2024 15:48:43 Gestation period, 31 weeks 84869323 Z3A.31 [id number] Niranjan Leroy MD Telephone [address],[place] [address] 11/08/2024 11:24:48 11/08/2024 12:33:00 Abnormal placenta affecting management of mother 39150923 O43.193 Z3A.33 [id number] [facility] [address],[place] [address] 11/08/2024 11:27:17 11/08/2024 15:02:34 Gestation period, 33 weeks 66728054 Z3A.33 [id number] Niranjan Leroy MD Telephone [address],[place] [address] 11/24/2024 15:56:05 11/24/2024 16:45:54 Third trimester 67537654 Z34.03 [id number] Niranjan Leroy MD Telephone [address],[place] [address] 12/01/2024 15:43:04 12/01/2024 17:23:30 care status 278568560 Z34.83 [id number] Niranjan Leroy MD Telephone [address],[place] [address] 12/06/2024 14:35:47 12/06/2024 15:11:02 Abnormal placenta affecting management of mother 08829520 O43.193 Z3A.37 [id number] [facility] [address],[place] [address] 12/06/2024 14:36:27 12/06/2024 15:56:57 Gestation period, 37 weeks 68746331 Z3A.37 [id number] [facility] [address],[place] [address] 12/13/2024 15:28:41 12/13/2024 15:59:04 Gestation period, 38 weeks 33680925 Z3A.38 Health Concerns Section Related Observation LastModified by Organization Detai ls LastModified Time None Recorded Concern Status LastModified by Organization Details LastModified Time None Recorded Advance Directives Directive N: Payers Insurance Date Sequence Insurance Name Policy Number Policy Corona Covered Member ID Corona Member ID Guarantor Name 06/06/2024 1 [employer] - [employer] - [place] [employer] - OPEN ACCESS PLUS [id number] Gerri Madai [id number] Gerri Loaiza 06/06/2024 1 [employer] - DOS PRIOR TO 21 - [facility] BENEFITS PLAN [id number] Gerri Aj [id number] OI [id number] SOI Gerri Loaiza 10/08/2023 2 [employer]-[place] (PPO) [id number] Nereyda Aj [id number] Gerri Loaiza 06/06/2024 1 [employer] - US NOW (INDEMNITY) Gerri Loaiza [id number] OI Gerri Loaiza 12/10/2024 1 [employer] - [facility] BENEFITS PLAN Gerri Loaiza [id number] OI Gerri Loaiza OBGyn Episode Ob Episode Information Episode Created Date Number of Fetuses Patient Bloodtype Patient rh Status Prepregnancy Weight lbs Domestic Partner Domestic Partner Phone Father Name Interior Design Consultant Status 12/12/19 21 1 CLOSED Fetus Data First Name Last Name Admitted to NICU Weight (g) Sex Living Outcome Pediatric Complications Fetus ID Race Codes Race Delivery Type , Spontane ous [id number] Mack Calculation Initial Mack Date Initial Exam [...] Domestic Partner Domestic Partner Phone Father Name Interior Design Consultant Status 12/12/19 21 1 CLOSED Fetus Data First Name Last Name Admitted to NICU Weight (g) Sex Living Outcome Pediatric Complications Fetus ID Race Codes Race Delivery Type Ectopic [id number] Mack Calculation Initial Mack Date Initial Exam [...] Domestic Partner Domestic Partner Phone Father Name Interior Design Consultant Status 06/06/20 24 1 O Positive 170 Keagan Loaiza OPEN Fetus Data First Name Last Name Admitted to NICU Weight (g) Sex Living Outcome Pediatric Complications Fetus ID Race Codes Race Delivery Type [id number] Problems Problem Notes prominent stomach on USvenou s doppler wnl 08/12 [facility]ppler[facility] appt 10/11 pt scheduled here. pt to follow up with Rajan GANDARA after see vascular surgery Problem Name Start Date End Date Resolution Snomed Code Not e Marginal insertion of umbilical cord 10010861 serial growth Palpitations 50337446 72 huynh er monitor - order faxed 10/18 [place] outpatient cardiology Edema of lower extremity 471132100 UNILATERAL, RIG HT SIDE Order faxed to [place] for Rpt venous doppler 08/28 scheduled [place] 08/29 0900referral faxed to [facility]FM 08/28 [facility] 09/13/24 1:00PM Level II us & consult - [facility] refer pt to Vacular Surgery -10/18/24 Acid reflux 592471912 Mack Calculation Initial Mack Date Initial Exam Date Initial Exam Provider Initial Ultrasound Date Last Menstrual Period Date Ultra Sound Weeks Gestation 12/25/2024 06/06/2024 05/12/2024 03/20/2024 8 Eighteen To Twenty Week Mack Update Ultra Sound Date Fundal Height At Umbil Quickening Date Ultra Sound Latest Weeks Gestation Final Mack Confirmed By Final Makc Confirmed Date Final Mack Date Ultra Sound Latest Days Gestation 0 [email or web address] 06/06/2024 12/26/19 25 0 Pre- Flowsheet Flowsheet Date 06/06/2024 Kelly Score Blood Edema Fundus Height Fundus Units Glucose Ketones Leukocytes Nitrite Labor Signs Protein Cervic Dilation Cervic Effacement Cervic Station Type Weight in lbs Pre/Post Dialysis Refused Weight 170.374953568049 BP Diastolic BP Location Tested BP Systolic BP Type 75 L arm 116 sitting Fetus Heart Rate Present A 167 Fetus Movement Comments Patient presents to [facility] care. Overall feeling well, no cramping, [...] Type Weight in lbs Pre/Post Dialysis Refused 177.116229527003 BP Diastolic BP Location Tested BP Systolic [...] Type Weight in lbs Pre/Post Dialysis Refused 178.241599861748 BP Diastolic BP Location Tested BP Systolic [...] Type Weight in lbs Pre/Post Dialysis Refused 182.845966844996 BP Diastolic BP Location Tested BP Systolic [...] Type Weight in lbs Pre/Post Dialysis Refused 184.456314769169 BP Diastolic BP Location Tested BP Systolic BP Type 78 L arm 116 sitting Fetus Heart Rate Present A 145 Fetus Movement A Yes Comments Unilateral leg swelling on t he right persist. Repeat Dopplers and referred to MFM. Flowsheet Date 09/29/2024 Kelly Score Blood Edema Fundus Height Fundus Units Glucose Ketones Leukocytes Nitrite Labor Signs Protein Cervic Dilation Cervic Effacement Cervic Station trace Type Weight in lbs Pre/Post Dialysis Refused Weight 191.970576588371 BP Diastolic BP Location Tested BP Systolic [...] Type Weight in lbs Pre/Post Dialysis Refused 197.657627991215 BP Diastolic BP Location Tested BP Systolic BP Type 70 107 Fetus Heart Rate Present Fetus Movement A Yes Comments Patient is having BH contrac tions and swelling. doing well +FM has appt with vascular on 10/18, efw 82%, precautions and education f/u 2 weeks Flowsheet Date 10/27/2024 Kelly Score Blood Edema Fundus Height Fundus Units Glucose Ketones Leukocytes Nitrite Labor Signs Protein Cervic Dilation Cervic Effacement Cervic Station neg trace Type Weight in lbs Pre/Post Dialysis Refused 205.655742086980 BP Diastolic BP Location Tested BP Systolic BP Type 78 129 Fetus Heart Rate Present Fetus Movement A Yes Comments Patient is having headaches, BH contractions, discharge, and swelling. vascular said swelling normal, will cont to monitor, note to recline at home during work. 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 f/u growth at next visit, education and precautions, call for preadmit Flowsheet Date 11/08/2024 Kelly Score Blood Edema Fundus Height Fundus Units Glucose Ketones Leukocytes Nitrite Labor Signs Protein Cervic Dilation Cervic Effacement Cervic Station Type Weight in lbs Pre/Post Dialysis Refused BP Diastolic BP Location Tested BP Systolic BP Type Fetus Heart Rate Present Fetus Movement Comments Flowsheet Date 11/08/2024 Kelly Score Blood Edema Fundus Height Fundus Units Glucose Ketones Leukocytes Nitrite Labor Signs Protein Cervic Dilation Cervic Effacement Cervic Station neg trace Type Weight in lbs Pre/Post Dialysis Refused 206.740786378579 BP Diastolic BP Location Tested BP Systolic BP Type 75 115 Fetus Heart Rate Present Fetus Movement A Yes Comments Patient is having some BH co ntractions and swelling. efw 78% ac 91% bpd 91%, vtx, precautions and education, f/u 2 weeks Flowsheet Date 11/24/2024 Kelly Score Blood Edema Fundus Height Fundus Units Glucose Ketones Leukocytes Nitrite Labor Signs Protein Cervic Dilation Cervic Effacement Cervic Station 3cm 60% -3 Type Weight in lbs Pre/Post Dialysis Refused Weight 216.068710627687 BP Diastolic BP Location Tested BP Systolic BP Type 79 L arm 130 sitting Fetus Heart Rate Present A 136 Present Fetus Movement A Yes Comments bilateral lower extremity ed daron, normotensive, advanced cervical dilation for primary, group B strep done Flowsheet Date 12/01/2024 Kelly Score Blood Edema Fundus Height Fundus Units Glucose Ketones Leukocytes Nitrite Labor Signs Protein Cervic Dilation Cervic Effacement Cervic Station 4cm 80% -3 Type Weight in lbs Pre/Post Dialysis Refused 218.047541124959 BP Diastolic BP Location Tested BP Systolic BP Type 79 L arm 136 sitting Fetus Heart Rate Present A 144 Present Fetus Movement A Yes Comments no complaints, no problems, routine care, no contractions, no vaginal bleeding, no loss of fluid, no cramping Flowsheet Date 12/06/2024 [facility] Score Blood Edema Fundus Height Fundus Units Glucose Ketones Leukocytes Nitrite Labor Signs Protein Cervic Dilation Cervic Effacement Cervic Station Type Weight in lbs Pre/Post Dialysis Refused BP Diastolic BP Location Tested BP Systolic BP Type Fetus Heart Rate Present Fetus Movement Comments Flowsheet Date 12/06/2024 Kelly Score Blood Edema Fundus Height Fundus Units Glucose Ketones Leukocytes Nitrite Labor Signs Protein Cervic Dilation Cervic Effacement Cervic Station neg trace 4cm 80% -2 Type Weight in lbs Pre/Post Dialysis Refused 217.471426319023 BP Diastolic BP Location Tested BP Systolic BP Type 76 113 Fetus Heart Rate Present Fetus Movement A Yes Comments Patient is having some disch arge, contractions and swelling. +FM increased swelling, precautions and education reviewed us f/u one week Flowsheet Date 12/13/2024 Kelly Score Blood Edema Fundus Height Fundus Units Glucose Ketones Leukocytes Nitrite Labor Signs Protein Cervic Dilation Cervic Effacement Cervic Station neg trace 4cm Type Weight in lbs Pre/Post Dialysis Refused 220.781910149553 BP Diastolic BP Location Tested BP Systolic BP Type 81 122 Fetus Heart Rate Present A 146 Fetus Movement A Yes Comments Patient is having contractio ns, pelvic pain, discharge and swelling. +FM, note off work next 2 days ok, cervix 4-5/80/-2 bulging bag, education, and precautions f/u one week, plan membrane sweep Menstrual History Last Menstrual Date Menses Monthly [...]
--- NOTE | 2024-12-16 01:02 | LDADM ---
This patient, Gerri Loaiza, was admitted to Labor/Delivery/Recovery 105 on 12/15/24 at 22:05. Plans for labor, pain management and were discussed with patient. Patient/family oriented to hospital policies and general routines including ID bracelet, bed and alarms, visiting hours, pain management, procedures, bathroom and other care routines, personal items, smoking policy, room service/diet and guest tray routines, security routines, and visiting hours. Patient/Family are encouraged to report perceived risks to care and to ask questions if they do not understand what they are told or what they should do. See OBIX for further documentation.
--- NOTE | 2024-12-16 01:10 | OBADM ---
This patient, Gerri Loaiza, admitted to the OB room Labor/Delivery/Recovery 105 for observation. Patient/family oriented to hospital policies and general routines including ID bracelet, bed and alarms, visiting hours, pain management, procedures, bathroom and other care routines, personal items, smoking policy, room service/diet, and visiting hours. Patient/Family are encouraged to report perceived risks to care and to ask questions if they do not understand what they are told or what they should do.
[2024-12-16 01:21] VITALS: BP 142/85; PULSE 57
--- NOTE | 2024-12-18 08:08 | PM.OBTRLD ---
OB - Triage/Final Diagnosis Visit Information Date of evaluation: 12/16/24 Reason for evaluation: threatened labor Comments/Additional reasons for admission: I have assessed the risk for this patient, Gerri Fern Loaiza, and determined that she would benefit from observation care.
== END 2024-12-16 01:25 | disposition home or self-care (01) ==
PROVIDERS: Admitting Provider Obstetrics & Gynecology; Visit Provider Obstetrics & Gynecology
DX: O47.1 False labor at or after 37 completed weeks of gestation (principal); Z3A.38 38 weeks gestation of pregnancy
CPT/HCPCS: 59025; G0378; G0379

== ENCOUNTER 2024-12-18 23:17 | Inpatient (IN) | payer OTHER, SELFPAY ==
--- OUTSIDE RECORDS SUMMARY | 2024-12-18 23:41 | XMS_ITS | Clinical Summary ---
Author Organization [facility] Address [facility] [place] [address] Care Team Providers Care Wire Technician Name Role Phone Unavailable Primary Care Provider Unavailabl e Source Comments [facility],non-owned Affiliates and Associated Physician Practices is amultiple site organization consisting of ambulatory clinics and hospital sitesin [place], [place], [place] and [place]. This disclosure is being madepursuant to the Care Everywhere program and may not contain all information available regarding this patient. Last updated 18.[facility] Allergies No known active allergies Medications * [...] Type Department Care Team Description 10/02/2024 Telephone [facility] Women's Health Maternal & Care [address] [place] [phone] Brittany Dacosta RN Future Appointment ([facility] called to confirm patient wants to do her FU growth US at her primary OB office. Patient is scheduled for 10/11/24 with OB/GYN/US with [facility]. Patient awaiting vascular surgeon appt. 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
--- OUTSIDE RECORDS SUMMARY | 2024-12-18 23:42 | XMS_ITS | Continuity of Care Document ---
Author Organization [facility] [place] Address [address] [place] [address] Assessment No assessment recorded. Plan of Treatment Reminders Order Date Submit Date Provider Last Modified By Organization Details Last Modified Time Details Appointments OB ROUTINE 2024 11:30A M HEATH SUN MD Not available Not available Not available INDUCTION 2024 06:30A M Karie Parmar CNM Not available Not available Not available Lab None recorded. Referral None recorded. Procedures None recorded. Surgeries None recorded. Imaging None recorded. Medication Orders None recorded. Patient TargetsNo targets recorded. Patient InstructionsNo instructions recorded. Reason for Referral None Reported. Results Created Date Observation Date Name Description Value Unit Range Abnormal Flag Note LastModifiedBy Organization Detail LastModifiedTime 06/06/2006/06/2024 US, obste tric, nucha l trans lucen cy No observ ation record ed. [facility] [address], [place], [address], 06/06/2024 18:17:53 06/06/20 24 06/06/2024 US, obste tric, nucha l trans lucen cy No observ ation record ed. [email or web address], [place], [address], 06/06/2024 21:13:02 07/07/19 25 07/07/2024 US, obste tric, limit ed No observ ation record ed. [email or web address] [address], [place], [address], 07/08/2024 13:03:51 07/07/19 25 07/07/2024 US, obste tric, limit ed No observ ation record ed. [facility] [address], [place], [address], 07/07/2024 17:07:07 07/31/19 25 07/31/2024 US, obste tric, 2nd or 3rd trime ster No observ ation record ed. [email or web address] [place] [address], [place], [address], 07/31/2024 17:58:51 07/31/19 25 07/31/2024 US, obste tric, follo w-up No observ ation record ed. [email or web address] [address], [place], [address], 08/04/2024 13:23:55 08/28/19 25 08/28/2024 US, obste tric, follo w-up No observ ation record ed. [email or web address] [place] [address], [place], [address], 08/28/2024 18:29:50 08/28/19 25 08/28/2024 US, obste tric, follo w-up No observ ation record ed. [email or web address] [address], [place], [address], 08/29/2024 22:54:05 08/28/19 25 08/28/2024 US, obste tric, follo w-up No observ ation record ed. [email or web address] [address], [place], [address], 08/28/2024 22:50:03 08/29/19 25 08/29/2024 US, doppl er, venou s No observ ation record ed. [place] [id number], [place], [address], 08/30/2024 15:44:30 08/29/19 25 08/29/2024 US, doppl er, venou s No observ ation record ed. [place] [address], [place], [address], 08/30/2024 15:44:30 09/14/19 25 09/13/2024 US, obste tric, follo w-up No observ ation record ed. [email or web address] [facility] [address] [place], [address], 09/13/2024 23:51:24 09/14/19 25 09/13/2024 US, obste tric, follo w-up No observ ation record ed. [address] [facility] [address] [place], [address], 09/18/2024 11:09:25 10/12/19 25 10/11/2024 US, obste tric, follo w-up No observ ation record ed. [facility] [address] [place], [address], 10/11/2024 17:17:34 10/12/19 25 10/11/2024 US, obste tric, follo w-up No observ ation record ed. [email or web address] [address], [place], [address], 10/30/2024 18:53:24 10/28/19 25 10/20/2024 kiarra r monit or No observ ation record ed. [email or web address] [place] [address], [address], 10/30/2024 09:53:14 10/28/19 25 10/18/2024 kiarra r monit or No observ ation record ed. [email or web address] [place] [address] (Pulmonary) [address] [place] [address], [address], 10/30/2024 17:34:46 11/09/19 25 11/08/2024 US, obste tric, follo w-up No observ ation record ed. [facility] [address], [place], [address], 11/08/2024 13:37:13 11/09/19 25 11/08/2024 US, obste tric, follo w-up No observ ation record ed. [email or web address] [address], [place], [address], 11/13/2024 21:56:21 12/07/19 25 12/06/2024 US, obste tric, follo w-up No observ ation record ed. [facility] [address], [place], [address], 12/06/2024 17:39:04 12/07/19 25 12/06/2024 , obste tric, follo w-up No observ ation record ed. [email or web address] [address], [place], [address], 12/08/2024 06:27:21 Result Notes None recorded. Problems Name Problem SNOMED Code Status Onset Date Resolution Date Notes Provider Name and Address Organization Details Recorded Time 43124840 Active 2023 Karin dawson, [facility] 4 16:57:16 Acid reflux 991492289 Active Niranjan Leroy MD [address], [place], [address], [facility] 5 16:31:38 Marginal insertion of umbilical cord 71702031 Active serial growth Mahogany dawson, [facility] 5 13:23:27 Edema of lower extremity 871596857 Active UNILATERA L, RIGHT SIDE Order faxed to [facility] for Rpt venous doppler 08/28 scheduled Trey 08/29 0900 [facility] 08/28 [facility] 09/13/24 1:00PM Level II us & consult - [facility] refer pt to Vacular Surgery -10/18/24 [facility] 16:18:45 Palpitati ons 37525797 Active 72 holter monitor - order faxed 10/18 [facility] t cardiolog y Mahogany dawson [facility] 5 16:19:23 Palpitati ons 95906026 Active 72 holter monitor - order faxed 10/18 [facility] cardiolog y Mahogany Jimenez [facility] 5 16:19:23 Problem Notes [...] [facility] 12/11/2020 19:21:03 Imaging Results None recorded. [...] and Address Organization Details Last Updated DateTime 12/18/2024 162.56 cm 39 kg/m2 269983.4 7 g 130 mm[Hg] 82 mm[Hg] ROSANNE Car [facility] 12:35:59 Social History Question Answer Notes LastModified by Organizat ion Details LastModified Time Tobacco Smoking Status Current Every Day Smoker Scarlet dawson, [facility] 03/25/2021 10:37:51 Do You Have An Advance Directive? No [email or web address] Information not available 05/12/2024 If You Are , What Was Your Level Of Alcohol Consumption Prior To ? None [email or web address] Information not available 03/25/2021 How Many Years Have You Consumed Alcohol? 7 Information not available 10/08/2023 Are You Blind Or Do You Have Difficulty Seeing? No [email or web address] Information not available 12/11/2020 What Is Your Level Of Caffeine Consumption? Occasional [email or web address] Information not available 12/11/2020 In The 14 Days Before Symptom Onset, Have You Had Close Contact With A Laboratory-confir med COVID-19 While That Case Was Ill? No [email or web address] Information not available 12/11/2020 In The 14 Days Before Symptom Onset, Have You Had Close Contact With A Person Who Is Under Investigation For COVID-19 While That Person Was Ill? No [email or web address] Information not available 12/11/2020 Have You Been To An Area Known To Be High Risk For COVID-19? No [email or web address] Information not available 12/11/2020 Are You Deaf Or Do You Have Serious Difficulty Hearing? No [email or web address] Information not available 12/11/2020 What Type Of Diet Are You Following? REGULAR [email or web address] Information not available 12/11/2020 What Is The Highest Grade Or Level Of School You Have Completed Or The Highest Degree You Have Received? GO58326-2 [email or web address] Information not available 03/25/2021 Are There Any Guns Present In Your Home? No Information not available 10/08/2023 Have You Ever Been Counseled For Unhealthy Alcohol Use? No [email or web address] Information not available 03/25/2021 Do You Use Protection During Sex? No [email or web address] Information not available 03/25/2021 Do You Use Your Seat Belt Or Car Seat Routinely? Yes Information not available 12/11/2020 Do You Have Smoke And Carbon Monoxide Detectors In Your Home? Yes Information not available 12/11/2020 At What Age Did You Start Smoking Tobacco? 16 Information not available 10/08/2023 How Much Tobacco Do You Smoke? 0.5 PPD Information not available 10/08/2023 Do You Use Sunscreen Routinely? Yes [email or web address] Information not available 12/11/2020 Has Tobacco Cessation Counseling Been Provided? No [email or web address] Information not available 03/25/2021 Have You Used IV Drugs? No [email or web address] Information not available 03/25/2021 Do You Have Difficulty Walking Or Climbing Stairs? No Information not available 07/07/2022 Sex: Unknown Functional Status Question Answer Note LastModified by Organizat ion Details LastModified Time Do you use any illicit or recreational drugs? No [email or web address] Information not available 12/11/2020 Do you or have you ever used any other forms of tobacco or nicotine? Yes [email or web address] Information not available 03/25/2021 What is your level of alcohol consumption? Occasional [email or web address] Information not available 12/11/2020 Do you or have you ever used smokeless tobacco? Never used smokeless tobacco [email or web address] Information not available 03/25/2021 Are you able to walk? YESWOREST Information not available 12/11/2020 Are you able to care for yourself? 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 No Information not available 07/07/2022 Do you or have you ever used e-cigarettes or vape? Current user of electronic cigarettes [email or web address] Information not available 03/25/2021 What is your exercise level? Occasional [email or web address] Information not available 12/11/2020 Mental Status Question Answer Note LastModified by Organization D etails LastModified Time Do you feel stressed (tense, restless, nervous, or anxious, or unable to sleep at night)? [id number] Information not available 10/08/2023 Family History Relationship Description Onset Age of this Age Resolved Age Notes LastModified by Organization Details LastModified Time Maternal Grandmother Malignant tumor of colon age unsure [email or web address] Not available 12/11/2020 19:14:43 Maternal Grandmother Diabetes mellitus [email or web address] Not available 12/11 19:18:00 Paternal Uncle Diabetes mellitus [email or web address] Not available 12/11 19:18:11 Paternal Uncle Schizophreni a Not available 2023 15:41:43 Mother Anxiety disorder [email or web address] Not available 12/11 19:19:14 Mother Depressive disorder [email or web address] Not available 12/11 19:19:19 Maternal Aunt Multiple sclerosis [email or web address] Not available 12/11 19:19:37 Medical History Condition [...] SNOMED-CT Code Diagnosis ICD10 Code Diagnosis Note [id number] Niranjan Leroy MD [place] [address] [address] 11/24/2024 15:56:05 11/24/2024 16:45:54 Third trimester 90896406 Z34.03 [id number] Niranjan eLroy MD [place] [address],[place] [address] 12/01/2024 15:43:04 12/01/2024 17:23:30 care status 460815123 Z34.83 [id number] Niranjan Leroy MD [place] [address],[place] [address] 12/06/2024 14:35:47 12/06/2024 15:11:02 Abnormal placenta affecting management of mother 37891781 O43.193 Z3A.37 885494 Karie Parmar [facility] [address],[place] [address] 12/06/2024 14:36:27 12/06/2024 15:56:57 Gestation period, 37 weeks 18206311 Z3A.37 126932 Karie Parmar [facility] [address],[place] [address] 12/13/2024 15:28:41 12/13/2024 15:59:04 Gestation period, 38 weeks 40827245 Z3A.38 [id number] HEATH SUN MD [place] [address],[place] [address] 12/18/2024 12:28:48 12/18/2024 14:30:08 care status 512989153 Z34.83 Health Concerns Section Related Observation LastModified by Organization Detai ls LastModified Time None Recorded Concern Status LastModified by Organization Details LastModified Time None Recorded Payers Encounter Date Sequence Insurance Name Policy Number Policy Corona Covered Member ID Corona Member ID Guarantor Name 12/18/2024 1 [facility] Gerri Loaiza [id number] OI Gerri Loaiza OBGyn Episode Ob Episode Information Episode Created Date Number of Fetuses Patient Bloodtype Patient rh Status Prepregnancy Weight lbs Domestic Partner Domestic Partner Phone Father Name Sales Data Analyst Status 06/06/20 24 1 O Positive 170 Keagan Josse OPEN Fetus Data First Name Last Name Admitted to NICU Weight (g) Sex Living Outcome Pediatric Complications Fetus ID Race Codes Race Delivery Type [id number] Problems Problem Notes prominent stomach on USvenou s doppler wnl 2/8 [facility] repeat doppler/ Referral [facility] faxed 08/28- cancelled MFM appt 10/11 pt scheduled here. pt to follow up with [facility] after see vascular surgery Problem Name Start Date End Date Resolution Snomed Code Not e Marginal insertion of umbilical cord 44327000 serial growth Palpitations 62486663 72 huynh er monitor - order faxed 10/18 [facility] outpatient cardiology Edema of lower extremity 703192196 UNILATERAL, RIG HT SIDE Order faxed to [facility] for Rpt venous doppler 08/28 scheduled [facility] 08/29 0900referral [facility]ed to [facility] 08/28 [facility] 09/13/24 1:00PM Level II us & consult - [facility] refer pt to Vacular Surgery -10/18/24 Acid reflux 801527410 Mack Calculation Initial Mack Date Initial Exam [...] Date Ultra Sound Latest Days Gestation 0 [email or web address] 06/06/2024 12/26/19 25 0 Pre-ellen Flowsheet Flowsheet Date 06/06/2024 Kelly Score Blood Edema Fundus Height Fundus Units Glucose Ketones Leukocytes Nitrite Labor Signs Protein Cervic Dilation Cervic Effacement Cervic Station Type Weight in lbs Pre/Post Dialysis Refused Weight 170.518500448603 BP Diastolic BP Location Tested BP Systolic BP Type 75 L arm 116 sitting Fetus Heart Rate Present A 167 Fetus Movement Comments Patient presents to [facility] care. Overall feeling well, no cramping, [...] Type Weight in lbs Pre/Post Dialysis Refused 177.644137211710 BP Diastolic BP Location Tested BP Systolic [...] Type Weight in lbs Pre/Post Dialysis Refused 178.296471614052 BP Diastolic BP Location Tested BP Systolic [...] Type Weight in lbs Pre/Post Dialysis Refused 182.417097306233 BP Diastolic BP Location Tested BP Systolic [...] Type Weight in lbs Pre/Post Dialysis Refused 184.385548010520 BP Diastolic BP Location Tested BP Systolic [...] Weight in lbs Pre/Post Dialysis Refused Weight 191.437673258628 BP Diastolic BP Location Tested BP Systolic [...] Type Weight in lbs Pre/Post Dialysis Refused 197.837996769438 BP Diastolic BP Location Tested BP Systolic [...] Type Weight in lbs Pre/Post Dialysis Refused 205.078829114655 BP Diastolic BP Location Tested BP Systolic BP Type 78 129 Fetus Heart Rate Present Fetus Movement A Yes Comments Patient is having headaches, BH contractions, discharge, and swelling. vascular said swelling normal, will cont to monitor, note to recline at home during work. waiting for monitoring tech results. f/u growth at next visit, education [...] Type Weight in lbs Pre/Post Dialysis Refused 206.626453343671 BP Diastolic BP Location Tested BP Systolic [...] Weight in lbs Pre/Post Dialysis Refused Weight 216.677087309586 BP Diastolic BP Location Tested BP Systolic [...] Type Weight in lbs Pre/Post Dialysis Refused 218.818756358369 BP Diastolic BP Location Tested BP Systolic [...] Type Weight in lbs Pre/Post Dialysis Refused 217.379785725326 BP Diastolic BP Location Tested BP Systolic [...] Type Weight in lbs Pre/Post Dialysis Refused 220.021561243055 BP Diastolic BP Location Tested BP Systolic BP Type 81 122 Fetus Heart Rate Present A 146 Fetus Movement A Yes Comments Patient is having contractio ns, pelvic pain, discharge and swelling. +FM, note off work next 2 days ok, cervix 4-5/80/-2 bulging bag, education, and precautions f/u one week, plan membrane sweep Flowsheet Date 12/18/2024 Kelly Score Blood Edema Fundus Height Fundus Units Glucose Ketones Leukocytes Nitrite Labor Signs Protein Cervic Dilation Cervic Effacement Cervic Station neg trace 4cm 80% -2 Type Weight in lbs Pre/Post Dialysis Refused Weight 227.8723174461 BP Diastolic BP Location Tested BP Systolic BP Type 82 L arm 130 sitting Fetus Heart Rate Present A 145 Fetus Movement A Yes Comments Good movement. No cont ractions, LOF, or bleeding. Swelling stable, still uncomfortable. BP normal in office. Would like SVE and membrane sweep today. Discussed EIL, will check with hospital to find available dates. Labor precautions reviewed. Menstrual History Last Menstrual Date Menses Monthly [...]
--- OUTSIDE RECORDS SUMMARY | 2024-12-18 23:42 | XMS_ITS | Data Portability ---
Author Organization [facility] Address [address] [address] Assessment Encounter Date Assessment Date Assessment LastModified by Organization Details LastModified Time 12/01/2024 12/01/2024 Patient is ___weeks . Discussed plan. Not available 12/01/2024 16:36:10 12/06/2024 12/06/2024 Patient is _37__weeks . Discussed plan. [email or web address] Not available 12/06/2024 15:42:51 12/13/2024 12/13/2024 Patient is _38__weeks . Discussed plan. [email or web address] Not available 12/13/2024 15:50:21 Plan of Treatment [...] Imaging US, obstetric , follow-up 2024 025 [email or web address] [place], [address], [address], [place], [address], 12/06/2024 16:29:59 Medication Orders None recorded. Patient TargetsNo targets [...] t Abnor mal: No Resul ting Lab: [facility] [address] [address] Tel: CULTU RE ----- ----- ----- --- No Group B strep isola yamini at 2 days (mahsa ctive broth enhan cemen t) Not Available [facility] (Lab) [address], [place], [address], 11/27/2024 15:10:47 11/09/19 25 11/08/2024 US, obste tric, follo w-up No observ ation record ed. [facility] [address], [place], [address], 11/08/2024 13:37:13 11/09/19 25 11/08/2024 US, obste tric, follo w-up No observ ation record ed. [email or web address] [address], [place], [address], 11/13/2024 21:56:21 12/07/19 25 12/06/2024 US, obste tric, follo w-up No observ ation record ed. [facility] [address], [place], [address], 12/06/2024 17:39:04 12/07/19 25 12/06/2024 US, obste tric, follo w-up No observ ation record ed. [email or web address] [address], [place], [address], 12/08/2024 06:27:21 Result Notes None recorded. Problems Name Problem SNOMED Code Status Onset Date Resolution Date Notes Provider Name and Address Organization Details Recorded Time 23921874 Active 2023 Karin Contreras samir, [facility] 4 16:57:16 Acid reflux 080607628 Active Niranjan Leroy MD [address], [place], [address], [facility] 5 16:31:38 Marginal insertion of umbilical cord 85023422 Active serial growth Mahogany Jimenez [facility] 5 13:23:27 Edema of lower extremity 109784435 Active UNILATERA L, RIGHT SIDE Order faxed to [facility] for Rpt venous doppler 08/28 scheduled Trey 08/29 0900 referral faxed to [facility] 08/28 [facility] 09/13/24 1:00PM Level II us & consult - [facility] refer pt to Vacular Surgery -10/18/24 Mahogany Tony dawson [facility] 5 16:18:45 Palpitati ons 10150301 Active 72 holter monitor - order faxed 10/18 [facility] t cardiolog y Mahogany dawson [facility] 5 16:19:23 Palpitati ons 70399110 Active 72 holter monitor - order faxed 10/18 [facility] t cardiolog y Mahogany Tony [facility] 5 16:19:23 Problem Notes None recorded. Procedures Surgical History Date Name Laterality Status Provider Name and Address Organization Details Recorded Time 10/08/19 24 Date of Last Pap Smear completed Scarlet Beltran [facility] 05/12/2024 13:54:02 11/05/19 21 Laparoscopy completed Scarlet Beltran [facility] 12/11/2020 19:21:46 04/04/20 20 Dilation and Curettage completed Scarletmargy Beltran [facility] 12/11/2020 19:21:22 08/05/19 19 [facility] wisdom [facility] 12/11/2020 19:21:03 Imaging Results None [...] Address Organization Details Last Updated DateTime 12/01/2024 58271.1366 6 g 136 mm[Hg] 79 mm[Hg] Sophie Antonio [facility] 12/01/2024 16:37:19 Date Recorded Body weight Body mass index (BMI) Body height Systolic blood pressure Diastolic blood pressure Provider Name and Address Organization Details Last Updated DateTime 12/06/2024 85578.54 429 g 37.2 kg/m2 162.56 cm 113 mm[Hg] 76 mm[Hg] Scarlet Beltran [facility] 5 15:18:49 Date Recorded Body weight Body mass index (BMI) Body height Systolic blood pressure Diastolic blood pressure Provider Name and Address Organization Details Last Updated DateTime 12/13/2024 49193.32 14 g 37.8 kg/m2 162.56 cm 122 mm[Hg] 81 mm[Hg] Scarlet Beltran [facility] 5 15:39:11 Date Recorded Body height Body mass index (BMI) Body weight Systolic blood pressure Diastolic blood pressure Provider Name and Address Organization Details Last Updated DateTime 12/18/2024 162.56 cm 39 kg/m2 864133.4 7 g 130 mm[Hg] 82 mm[Hg] ROSANNE Car [facility] 5 12:35:59 Social History Question Answer Notes LastModified by Organizat ion Details LastModified Time Tobacco Smoking Status Current Every Day Smoker Scarlet Beltran [facility], [facility] 03/25/2021 10:37:51 Do You Have An Advance Directive? No [email or web address] Information not available 05/12/2024 If You Are , What Was Your Level Of Alcohol Consumption Prior To ? None [email or web address] Information not available 03/25/2021 How Many Years Have You Consumed Alcohol? 7 Information not available 10/08/2023 Are You Blind Or Do You Have Difficulty Seeing? No [email or web address] Information not available 12/11/2020 What Is Your Level Of Caffeine Consumption? Occasional Information not available 12/11/2020 In The 14 Days Before Symptom Onset, Have You Had Close Contact With A Laboratory-confir med COVID-19 While That Case Was Ill? No [email or web address] Information not available 12/11/2020 In The 14 Days Before Symptom Onset, Have You Had Close Contact With A Person Who Is Under Investigation For COVID-19 While That Person Was Ill? No [email or web address] Information not available 12/11/2020 Have You Been To An Area Known To Be High Risk For COVID-19? No [email or web address] Information not available 12/11/2020 Are You Deaf Or Do You Have Serious Difficulty Hearing? No [email or web address] Information not available 12/11/2020 What Type Of Diet Are You Following? REGULAR [email or web address] Information not available 12/11/2020 What Is The Highest Grade Or Level Of School You Have Completed Or The Highest Degree You Have Received? ZS04353-1 [email or web address] Information not available 03/25/2021 Are There Any Guns Present In Your Home? No Information not available 10/08/2023 Have You Ever Been Counseled For Unhealthy Alcohol Use? No [email or web address] Information not available 03/25/2021 Do You Use Protection During Sex? No [email or web address] Information not available 03/25/2021 Do You Use Your Seat Belt Or Car Seat Routinely? Yes [email or web address] Information not available 12/11/2020 Do You Have Smoke And Carbon Monoxide Detectors In Your Home? Yes [email or web address] Information not available 12/11/2020 At What Age Did You Start Smoking Tobacco? 16 Information not available 10/08/2023 How Much Tobacco Do You Smoke? 0.5 PPD Information not available 10/08/2023 Do You Use Sunscreen Routinely? Yes [email or web address] Information not available 12/11/2020 Has Tobacco Cessation Counseling Been Provided? No [email or web address] Information not available 03/25/2021 Have You Used IV Drugs? No [email or web address] Information not available 03/25/2021 Do You Have Difficulty Walking Or Climbing Stairs? No Information not available 07/07/2022 Sex: Unknown Functional Status Question Answer Note LastModified by Organizat ion Details LastModified Time Do you use any illicit or recreational drugs? No [email or web address] Information not available 12/11/2020 Do you or have you ever used any other forms of tobacco or nicotine? Yes [email or web address] Information not available 03/25/2021 What is your level of alcohol consumption? Occasional [email or web address] Information not available 12/11/2020 Do you or have you ever used smokeless tobacco? Never used smokeless tobacco [email or web address] Information not available 03/25/2021 Are you able to walk? YESWOREST [email or web address] Information not available 12/11/2020 Are you able to care for yourself? 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 No Information not available 07/07/2022 Do you or have you ever used e-cigarettes or vape? Current user of electronic cigarettes [email or web address] Information not available 03/25/2021 What is your exercise level? Occasional Information not available 12/11/2020 Mental Status Question Answer Note LastModified by Organization D etails LastModified Time Do you feel stressed (tense, restless, nervous, or anxious, or unable to sleep at night)? [id number] Information not available 10/08/2023 Family History Relationship Description Onset Age of this Age Resolved Age Notes LastModified by Organization Details LastModified Time Maternal Grandmother Malignant tumor of colon age unsure Not available 12/11/2020 19:14:43 Maternal Grandmother Diabetes mellitus [email or web address] Not available 12/11 19:18:00 Paternal Uncle Diabetes mellitus [email or web address] Not available 12/11 19:18:11 Paternal Uncle Schizophreni a [email or web address] Not available 2023 15:41:43 Mother Anxiety disorder [email or web address] Not available 12/11 19:19:14 Mother Depressive disorder [email or web address] Not available 12/11 19:19:19 Maternal Aunt Multiple sclerosis Not available 12/11 19:19:37 Medical History Condition [...] SNOMED-CT Code Diagnosis ICD10 Code Diagnosis Note [id number] Karie Parmar CNM [place] [address] [address] 12/11/2020 15:03:37 12/11/2020 16:52:07 Contraception care management 857424180 Z30.9 42677 Karie Parmar CNM [place] [address] [place] [address] 03/25/2021 10:29:58 03/25/2021 12:03:09 Contraception care management 907966590 Z30.9 [id number] CHINA Hatfield [place] [address],[place] [address] 07/07/2022 14:52:06 07/07/2022 15:47:35 Pain in pelvis 55537901 R10.2 Today we reviewed the various causes [...] plan of care. Venereal d isease screening 375067342 Z11.3 [id number] Niranjan Leroy MD [place] [address],[place] [address] 07/20/2022 14:01:43 07/20/2022 14:44:39 Pain in pelvis 01290744 R10.2 [id number] CHINA Hatfield [place] [address],[place] [address] 07/27/2022 14:25:22 07/27/2022 16:10:45 Pain in pelvis 21817166 R10.2 Today we reviewed recent TVUS - [...] counseling and review of plan of care. [id number] CHINA Hatfield [place] [address],[place] [address] 10/08/2023 12:02:18 10/08/2023 14:40:15 Gynecologic examination 08918494 Z01.419 WWEpap updateddec lined STI screenenco uraged [...] of today's plan if desired. Breast lump 38161172 N63 .0 left breast u/s order given to pt [id number] Niranjan Leroy MD [place] [address],[place] [address] 04/28/2024 12:32:47 05/01/2024 10:14:42 Uncertain viability of 013298912 O36.80X9 Z3A.01 [id number] Niranjan Leroy MD [place] [address],[place] [address] 05/12/2024 14:19:40 05/12/2024 14:50:39 [id number] Karie Parmar CNM [place] [address],[place] [address] 05/12/2024 14:19:54 05/12/2024 16:59:32 Venereal disease screening 161179333 Z11.3 Amenorrhea 50452672 N91. 2 [id number] MD Sonja Finnegan [address],[place] [address] 06/06/2024 15:41:35 06/06/2024 16:42:54 screening 351537877 Z36.82 Z3A.11 037440 HEATH SUN MD [place] [address],[place] [address] 06/06/2024 15:42:31 06/06/2024 18:21:27 Routine care 927274302 Z34.90 [id number] MD Sonja Finnegan [address] [address] 07/07/2024 11:41:25 07/07/2024 13:16:11 Routine care 012879393 Z34.90 [id number] MD Sonja Finnegan [address] [address] 07/07/2024 11:53:34 07/07/2024 13:36:31 Abdominal pain in 966874653 O99.891 Z3A.15 [id number] MD Sonja Finnegan [address],[place] [address] 07/31/2024 14:27:44 07/31/2024 15:45:54 screening for malformation 421005077 Z36.3 Z3A.19 [id number] MD Sonja Finnegan [address],[place] [address] 07/31/2024 14:28:07 07/31/2024 16:41:53 Routine care 806211607 Z34.90 [id number] MD Sonja Finnegan [address],[place] [address] 08/15/2024 10:56:59 08/15/2024 12:29:56 Routine care 027517234 Z34.90 [id number] MD Sonja Finnegan [address],[place] [address] 08/28/2024 13:50:38 08/28/2024 14:33:47 Placental condition affecting management of mother 832587061 O43.102 Z36.2 Z3A.23 [id number] Niranjan Leroy MD [place] [address],[place] [address] 08/28/2024 13:51:41 08/28/2024 15:28:10 Routine care 790874152 Z34.90 [id number] [facility] [address],[place] [address] 09/29/2024 13:58:28 09/29/2024 15:17:42 Gestation period, 27 weeks 14300891 Z3A.27 [id number] Niranjan Leroy MD [place] [address],[place] [address] 10/11/2024 14:29:02 10/11/2024 15:48:10 Marginal insertion of umbilical cord 32502487 O43.129 Z3A.29 [id number] [facility] [address] [place] [address] 10/11/2024 14:29:59 10/11/2024 16:58:26 Gestation period, 29 weeks 89619362 Z3A.29 [id number] [facility] [address],[place] [address] 10/27/2024 14:51:57 10/27/2024 15:48:43 Gestation period, 31 weeks 03485420 Z3A.31 115154 Niranjan Leroy MD [place] [address] [place] [address] 11/08/2024 11:24:48 11/08/2024 12:33:00 Abnormal placenta affecting management of mother 71250810 O43.193 Z3A.33 500807 [facility] [address] [place] [address] 11/08/2024 11:27:17 11/08/2024 15:02:34 Gestation period, 33 weeks 01372730 Z3A.33 [id number] Niranjan Leroy MD [place] [address],[place] [address] 11/24/2024 15:56:05 11/24/2024 16:45:54 Third trimester 63017082 Z34.03 [id number] Niranjan Leroy MD [place] [address],[place] [address] 12/01/2024 15:43:04 12/01/2024 17:23:30 care status 093260047 Z34.83 [id number] Niranjan Leroy MD [place] [address],[place] [address] 12/06/2024 14:35:47 12/06/2024 15:11:02 Abnormal placenta affecting management of mother 77089434 O43.193 Z3A.37 [id number] Karie Parmar [facility] [address],[place] [address] 12/06/2024 14:36:27 12/06/2024 15:56:57 Gestation period, 37 weeks 73204132 Z3A.37 [id number] [facility] [address] [address] 12/13/2024 15:28:41 12/13/2024 15:59:04 Gestation period, 38 weeks 18280805 Z3A.38 319324 HEATH SUN MD [place] [address],[place] [address] 12/18/2024 12:28:48 12/18/2024 14:30:08 care status 477393168 Z34.83 Health Concerns Section Related Observation LastModified by Organization Detai ls LastModified Time None Recorded Concern Status LastModified by Organization Details LastModified Time None Recorded Advance Directives Directive N: Payers Insurance Date Sequence Insurance Name Policy Number Policy Corona Covered Member ID Corona Member ID Guarantor Name 06/06/2024 1 [employer] - [employer] - [facility] EM[employer] - OPEN ACCESS PLUS [id number] Gerri Aj [id number] Gerri Loaiza 06/06/2024 1 [employer] - DOS PRIOR TO 21 - [facility] BENEFITS PLAN [id number] Gerri Aj [id number] OI [id number] SOI Gerri Josse 10/08/2023 2 [employer] [id number] Nereyda Aj [id number] Gerri Loaiza 06/06/2024 1 [employer] - US NOW (INDEMNITY) Gerri Loaiza [id number] OI Gerri Loaiza 12/16/2024 1 [employer] - [facility] BENEFITS PLAN Gerri Loaiza [id number] OI Gerri Loaiza OBGyn Episode Ob Episode Information Episode Created Date Number of Fetuses Patient Bloodtype Patient rh Status Prepregnancy Weight lbs Domestic Partner Domestic Partner Phone Father Name Forklift Operator Status 12/12/19 1 CLOSED Fetus Data First Name Last Name Admitted to NICU Weight (g) Sex Living Outcome Pediatric Complications Fetus ID Race Codes Race Delivery Type , Spontane ous [id number] Mack Calculation Initial Mack Date Initial Exam [...] Domestic Partner Domestic Partner Phone Father Name Forklift Operator Status 12/12/19 21 1 CLOSED Fetus Data First Name Last Name Admitted to NICU Weight (g) Sex Living Outcome Pediatric Complications Fetus ID Race Codes Race Delivery Type Ectopic [id number] Mack Calculation Initial Mack Date Initial Exam [...] Domestic Partner Domestic Partner Phone Father Name Forklift Operator Status 06/06/20 24 1 O Positive 170 Keagan Loaiza OPEN Fetus Data First Name Last Name Admitted to NICU Weight (g) Sex Living Outcome Pediatric Complications Fetus ID Race Codes Race Delivery Type [id number] Problems Problem Notes prominent stomach on USvenou s doppler wnl 08/12 [facility] ER repeat doppler/ Referral [facility] faxed 08/28- cancelled [facility] appt 10/11 pt scheduled here. pt to follow up with [facility] after see vascular surgery Problem Name Start Date End Date Resolution Snomed Code Not e Marginal insertion of umbilical cord 30740781 serial growth Palpitations 14488670 72 huynh er monitor - order faxed 10/18 [facility] outpatient cardiology Edema of lower extremity 604894446 UNILATERAL, RIG HT SIDE Order faxed to [facility] for Rpt venous doppler 08/28 scheduled [facility] 08/29 0900referral faxed to [facility] 08/28 [facility] 09/13/24 1:00PM Level II us & consult - [facility] refer pt to Vacular Surgery -10/18/24 Acid reflux 080965033 Mack Calculation Initial Mack Date Initial Exam [...] Date Ultra Sound Latest Days Gestation 0 [email or web address] 06/06/2024 12/26/19 25 0 Pre- Flowsheet Flowsheet Date 06/06/2024 Kelly Score Blood Edema Fundus Height Fundus Units Glucose Ketones Leukocytes Nitrite Labor Signs Protein Cervic Dilation Cervic Effacement Cervic Station Type Weight in lbs Pre/Post Dialysis Refused Weight 170.494979906660 BP Diastolic BP Location Tested BP Systolic BP Type 75 L arm 116 sitting Fetus Heart Rate Present A 167 Fetus Movement Comments Patient presents to [facility] care. Overall feeling well, no cramping, [...] Type Weight in lbs Pre/Post Dialysis Refused 177.502694657152 BP Diastolic BP Location Tested BP Systolic [...] Type Weight in lbs Pre/Post Dialysis Refused 178.851866331736 BP Diastolic BP Location Tested BP Systolic [...] Type Weight in lbs Pre/Post Dialysis Refused 182.877321022646 BP Diastolic BP Location Tested BP Systolic [...] Type Weight in lbs Pre/Post Dialysis Refused 184.532504047215 BP Diastolic BP Location Tested BP Systolic [...] Weight in lbs Pre/Post Dialysis Refused Weight 191.500988719770 BP Diastolic BP Location Tested BP Systolic [...] Type Weight in lbs Pre/Post Dialysis Refused 197.323614031532 BP Diastolic BP Location Tested BP Systolic [...] Type Weight in lbs Pre/Post Dialysis Refused 205.669654634904 BP Diastolic BP Location Tested BP Systolic BP Type 78 129 Fetus Heart Rate Present Fetus Movement A Yes Comments Patient is having headaches, BH contractions, discharge, and swelling. vascular said swelling normal, will cont to monitor, note to recline at home during work. 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 f/u growth at next visit, education [...] Type Weight in lbs Pre/Post Dialysis Refused 206.517195055404 BP Diastolic BP Location Tested BP Systolic [...] Weight in lbs Pre/Post Dialysis Refused Weight 216.933270630233 BP Diastolic BP Location Tested BP Systolic [...] Type Weight in lbs Pre/Post Dialysis Refused 218.990348617074 BP Diastolic BP Location Tested BP Systolic [...] Type Weight in lbs Pre/Post Dialysis Refused 217.087629716265 BP Diastolic BP Location Tested BP Systolic [...] Type Weight in lbs Pre/Post Dialysis Refused 220.730861837721 BP Diastolic BP Location Tested BP Systolic [...] Weight in lbs Pre/Post Dialysis Refused Weight 227.8138701092 BP Diastolic BP Location Tested BP Systolic [...]
--- NOTE | 2024-12-18 23:48 | LDADM ---
This patient, Gerri Loaiza, was admitted to Labor/Delivery/Recovery 102 on 12/18/24 at 23:17. Plans for labor, pain management and were discussed with patient. Patient/family oriented to hospital policies and general routines including ID bracelet, bed and alarms, visiting hours, pain management, procedures, bathroom and other care routines, personal items, smoking policy, room service/diet and guest tray routines, security routines, and visiting hours. Patient/Family are encouraged to report perceived risks to care and to ask questions if they do not understand what they are told or what they should do. See OBIX for further documentation.
[2024-12-18 23:52] VITALS: BP 134/79; PULSE 68
[2024-12-18 23:58] VITALS: BMI 35.6
[2024-12-19] VITALS (135 sets, daily range): BP systolic 83–160; BP diastolic 46–102; PULSE 55–282; RESP 16–20; TEMP 36.3–37.3; O2SAT 96–100
--- NOTE | 2024-12-19 00:05 | P.PNAN_ITS ---
Anes - Eval Pre Procedure Procedure: labor epidural Date/Time: 12/19/24 00:05 Surgeon: refugio Preop Diagnosis: pain during labor Pre Op Diagnosis: Contractions Patient Data Age: 29 Gender: F Height: 1.68 m Weight: 100 kg Last Vital Signs Pulse 74 12/19/24 00:01 BP 160/77 H 12/19/24 00:01 O2 Del Method Room Air 12/18/24 23:48 Allergies Allergy/AdvReac Type Severity Reaction Status Date / Time No Known Allergies Allergy Verified 11/24/24 14:39 Home Medications ?Medication ?Instructions ?Recorded ?Confirmed ?Type docusate sodium 100 mg capsule 100 mg PO DAILY 11/24/24 11/24/24 History (Colace) vit no.95-ferrous 1 tablet PO DAILY 11/24/24 11/24/24 History fumarate 28 mg-folic acid 800 mcg tablet () Laboratory Tests 12/18/24 23:47 WBC Pending RBC Pending Hgb Pending Hct Pending MCV Pending MCH Pending MCHC Pending RDW Pending Plt Count Pending MPV Pending Immature Gran % (Auto) Pending Neut % (Auto) Pending Lymph % (Auto) Pending Wallace % (Auto) Pending Eos % (Auto) Pending Baso % (Auto) Pending Lymph # (Auto) Pending Wallace # (Auto) Pending Eos # (Auto) Pending Baso # (Auto) Pending Abs Immat Gran (auto) Pending Absolute Neuts (auto) Pending Absolute Nucleated RBC Pending Nucleated RBC % Pending HIV 1&2 Ab/P24 Ag 4thGn Pending Patient hx anesthesia problems: none Family hx anesthesia problems: none Results Review: All pre-operative results and documents have been reviewed as part of the pre- operative evaluation. [facility] Past Medical History Medical History (Updated 12/19/24 @ 00:06 by Lani Zee CRNA) Obesity (BMI 30-39.9) IUP (intrauterine ), incidental Depression Anxiety Family History Family History (Updated 11/24/24 @ 14:31 by Priya Zhang RN) Grandparent Colon cancer Social History Social History Smoking status: Current every day smoker Tobacco type: e-cigarettes/vaping Second hand tobacco smoke exposure: Yes Substance use: never Do You Feel Safe in your Home?: Yes Lack of Transportation: No Lack of Food: Never True Current Housing: I Have Housing Concerned About Future Housing: No Difficulty Paying Gas/Electric Bills: No Difficulty Paying for Meds: No Currently Unemployed: No Education: High School Diploma/GED Difficulty w/ Childcare or Family Care: No Spiritual care concerns: No Exam Day of Procedure 12/19/24 00:05
[2024-12-19 00:11] LABS: Basophils Percent Auto 0.2 % (0.2-1.2); Eosinophils Absolute Auto 0.1 K/mm3 (0-0.3); Eosinophils Percent Auto 0.4 % (0-4.4); Hematocrit 35.9 % (37.0-47.0); Hemoglobin 12.3 g/dL (12.0-15.0); Immature Granulocyte Absolute 0.07 K/mm3 (0.00-0.031); Immature Granulocyte Percent A 0.4 % (0-0.5); Lymphocytes Absolute Auto 1.91 K/mm3 (0.9-3.2); Lymphocytes Percent Auto 11.8 % (18.3-44.2); Mean Corpuscular HGB Conc 34.3 g/dl (32-36); Mean Corpuscular Hemoglobin 30.9 pg (26-34); Mean Corpuscular Volume 90.2 fl (80-100); Mean Platelet Volume 11.4 fl (7.4-10.4); Monocytes Absolute Auto 1.1 K/mm3 (0.1-0.6); Monocytes Percent Auto 6.6 % (2.6-8.5); Neutrophils Percent Auto 80.6 % (45.5-73.1); Platelet Count Result 248 k/mm3 (150-375); Red Blood Count 3.98 M/mm3 (4.2-5.4); Red Cell Distribution Width 12.3 % (11.5-14.5); White Blood Count 16.1 K/mm3 (4.5-10.0)
[2024-12-19] MEDS: LACTATED RINGERS 1,000 ML 125 ML IV CONT (00:29)
[2024-12-19 00:42] LABS: Syphilis IgG/IgM Antibody Non-Reactive (Nonreactive)
[2024-12-19 00:55] LABS: HIV 1/2 Ab P24 Ag Result Negative (Negative)
--- NOTE | 2024-12-19 03:00 | WPDOBADMIT ---
Obstetrics - Admit Note Admission Note: record reviewed. No pertinent additions to the history and/or any subsequent changes in the physical findings that are not consistent with the expected course of the were found. Additions to the history and/or subsequent changes in the physical findings follow. Admit to for labor SVE /-2 AROM clear, odorless fluid, anticipate vaginal delivery
[2024-12-19] MEDS: miSOPROStol 200 MCG TABLET 1000 MCG (04:00)
--- NOTE | 2024-12-19 06:09 | PM.OBPRVD ---
OB - Vaginal Delivery Note Procedure Delivery date: 12/19/24 Induction method: None Delivery augmentation: Rupture of Membranes Delivery monitor: External FHT and External Uterine Route of delivery: Episiotomy description: None Laceration Description: Perineal - 2nd Degree Delivery repair: vicryl Specimen: No Quantitative Blood Loss (ml): 450 Anesthesia type: Epidural Disposition: Floor Complications: No immediate complications Baby Date of : 12/19/24 Time of : 05:49 Gestational Age by Date: 39 gender: Male presentation: vertex position: Left Occiput Anterior Placenta delivery description: Spontaneous Cord Vessel Description: 3 Vessels, Clamped/Cut and Delayed Cord Clamping score one minute: 9 score five minutes: 9
[2024-12-19] MEDS: FAMOTIDINE 20 MG/2 ML VIAL IV PUSH (06:12)
[2024-12-19] MEDS: OXYTOCIN 30 UNITS/NS 500 ML 30 UNITS/500 ML BAG 125 UNITS IV CONT (06:39)
[2024-12-19] MEDS: AMPICILLIN 2 GM/NS 100 ML 2 GM/100 ML BAG IVPB (07:36)
[2024-12-19] MEDS: IBUPROFEN 600 MG TABLET PO ×2 (08:54→19:57)
[2024-12-19] MEDS: POLYSACCHARIDE IRON COMPLEX 150 MG CAPSULE PO (08:55)
[2024-12-19] MEDS: WITCH HAZEL 40 PADS 1 PAD TOPICAL (08:56)
[2024-12-19] MEDS: BENZOCAINE 20% AER SPR (*SP) 56 GM CAN 1 SPRAY TOPICAL (08:56)
--- NOTE | 2024-12-19 10:39 | OBPPTRN ---
Patient transferred to post room #280 via wheelchair. Support person- Spouse Keagan present. Oriented to unit, room, information board, rooming in, admission packet and security measures. Patient verbalizes understanding.
--- NOTE | 2024-12-19 11:40 | PC.NURSE ---
Introductions were made, then consulted with patient to assess needs related to . Discussed with mother her plans to feed her and the experience so far. Mother states baby has latched and fed well so far. Per the nursery nurse, mom prefers more hands off assistance with and chooses to be independent. Patient states that she will call out for assistance if needed. Resources provided for inpatient and outpatient services with the feeding sheet, mom/baby guide and name written on the communication board. Mother voiced understanding of information and will call if there is a request for assistance. Reported to the Primary RN.?
[2024-12-19] MEDS: MULTIVIT/MIN/PREN/FOL AC/IRON TABLET 1 TAB PO (12:50)
--- NOTE | 2024-12-19 13:30 | PC.NURSE ---
Patient called out for assistance. Baby is sleepy so we placed him in the crib undressed and allowed him to stir for a minute. When he was awake, we placed him in cross cradle hold on the left breast. He gave some effort to open his mouth and latch but was unable to obtain a latch. We tried for 5 minutes and then switched to the right breast in football hold. Baby is more eager and tries to latch on this breast with a wide gape. Mom held her breast and we attempted to create a manageable bite for him. We tried for several minutes and baby was unable to latch. He started to fuss and arch his back away from the breast so mom is encouraged to hold him skin to skin and let him settle down before trying to latch again. His last blood sugar was WNL.
--- NOTE | 2024-12-19 14:30 | PC.NURSE ---
1430- Attempted to help mom latch baby again. He is swaddled when I went into the room so we unwrapped him and he woke easily. Mom wanted to put him in a cross cradle position and we attempted for only a few minutes before mom became frustrated and placed baby skin to skin. Baby seems hungry and roots but is unable to latch to the nipple. He arches his back and cries while pushing away from the breast. Encouraged mom to allow him to calm down before they attempt feeding again. RN updated. 1550- Patient set up with a breast pump due to ineffective feeding. We have attempted to latch baby several times without success. His blood sugar is still WNL but mom is nervous that he hasn't eaten. Baby is alert and awake. Mother was shown proper sizing (she measured herself and has her own flange inserts) and placement of flanges, pump settings, and cleaning of pump parts. Recommended 15 minutes of pumping both breasts simultaneously. Encouraged hands on pumping for more milk removal. Patient is aware that pumping should not hurt. She is encouraged to use the highest comfortable suction setting, gradually increasing the level as she pumps. Discussed use of expressed breast milk by placing drops of milk in baby?s mouth with a clean finger, syringe feeding, and bottle feeding.? Primary RN updated.??
--- NOTE | 2024-12-19 17:46 | WPDANLDPN2 ---
Anes-Prog Note L&D Date/Time: 12/19/24 17:46 Neuro status: Neuro function grossly intact. Cardiovascular status: normal Respiratory status: normal Airway patency: baseline Mental status: baseline Post-Op hydration status: normal Vital Signs: Last Vital Signs Temp 36.3 C L 12/19/24 15:12 Pulse 64 12/19/24 15:12 Resp 20 12/19/24 15:12 BP 119/62 12/19/24 15:12 Pulse Ox 99 12/19/24 15:12 O2 Del Method Room Air 12/18/24 23:48 Pain score (VAS): 0 I/O: Intake & Output 12/19/24 12/19/24 12/19/24 07:59 15:59 23:59 Intake Total 0 Output Total 450 Balance -450 0 Post-procedural complaints: none Patient feedback: Patient satisfied with anesthetic care.
[2024-12-19] MEDS: ACETAMINOPHEN 325 MG TABLET 650 MG PO (19:56)
[2024-12-20 00:45] VITALS: BP 120/68; PULSE 64; RESP 14; TEMP 36.4; O2SAT 99
[2024-12-20 04:08] VITALS: BP 125/77; PULSE 56; RESP 18; TEMP 36.5; O2SAT 100
[2024-12-20 04:53] LABS: Hematocrit 27.5 % (37.0-47.0)
--- NOTE | 2024-12-20 06:25 | P.PNOB_ITS ---
OB - PN: Subj Subjective Date/time seen: 12/20/24 06:25 Interval history: PPD#1 Doing well, pain improving Voiding without issue Tolerating general diet OB - PN: Obj Data Labs 12/20/24 04:00 Labs: Laboratory Results - last 24 hr 12/20/24 04:00 Hgb 9.0 L D Hct 27.5 L OB - PN A/P Assessment and Plan (1) (spontaneous vaginal delivery): Code(s): O80 - Encounter for full-term uncomplicated delivery Status: Acute Plan day: 1 Plan: routine care Time Spent With Patient Time: Total time spent is greater than 50% in coordination of care (as documented) at patient's floor/unit and/or counseling patient: Review of Systems 2 Review of Systems: All systems reviewed & are unremarkable except as noted in HPI and below Exam 2 Const: General: comfortable and no acute distress Resp: Effort & Inspection: normal respiratory effort
[2024-12-20] MEDS: MULTIVIT/MIN/PREN/FOL AC/IRON TABLET 1 TAB PO (07:30)
[2024-12-20] MEDS: DOCUSATE SODIUM 100 MG CAPSULE PO ×2 (07:30→16:32)
[2024-12-20] MEDS: IBUPROFEN 600 MG TABLET PO ×2 (07:30→14:40)
[2024-12-20] MEDS: POLYSACCHARIDE IRON COMPLEX 150 MG CAPSULE PO ×2 (07:30→16:32)
[2024-12-20 08:25] VITALS: BP 117/74; PULSE 55; RESP 18; TEMP 36.8; O2SAT 98
--- NOTE | 2024-12-20 11:35 | PC.NURSE ---
Consulted with patient to assess needs related to . Patient states that baby has been very sleepy and she has been supplementing with formula. Baby will latch to only one breast. She has not pumped since yesterday. Reviewed the ineffective feeding plan with patient including attempting at breast, pumping, and supplementing at each feeding. Reviewed with patient this is the doctors order due to baby's poor feeding overnight. Patient is encouraged to call out for feeding assistance as needed. Mother voiced understanding of information and will call if there is a request for assistance. Reported to the Primary RN.?
--- NOTE | 2024-12-20 14:48 | WPDANLDPN2 ---
Anes-Prog Note L&D Date/Time: 12/20/24 14:48 Comfortable throughout: labor and delivery Neuraxial method: epidural Epidural/Spinal procedure site: clean & non-tender Neuro status: Neuro function grossly intact. Cardiovascular status: normal Respiratory status: normal Airway patency: baseline Mental status: baseline Post-Op hydration status: normal Vital Signs: Last Vital Signs Temp 98.3 F 12/20/24 08:25 Pulse 55 L 12/20/24 08:25 Resp 18 12/20/24 08:25 BP 117/74 12/20/24 08:25 Pulse Ox 98 12/20/24 08:25 O2 Del Method Room Air 12/18/24 23:48 Pain score (VAS): 0/10 I/O: Intake & Output 12/19/24 12/20/24 12/20/24 23:59 07:59 15:59 Intake Total 240 Balance 240 Post-procedural complaints: none Patient feedback: Patient satisfied with anesthetic care.
[2024-12-20 20:00] VITALS: BP 143/88; PULSE 59; RESP 16; TEMP 36.8; O2SAT 98
[2024-12-21] MEDS: DOCUSATE SODIUM 100 MG CAPSULE PO (07:17)
[2024-12-21] MEDS: MULTIVIT/MIN/PREN/FOL AC/IRON TABLET 1 TAB PO (07:17)
[2024-12-21] MEDS: POLYSACCHARIDE IRON COMPLEX 150 MG CAPSULE PO (07:17)
[2024-12-21] MEDS: IBUPROFEN 600 MG TABLET PO ×2 (07:17→14:18)
[2024-12-21 08:20] VITALS: BP 132/78; PULSE 69; RESP 16; TEMP 37; O2SAT 100
--- NOTE | 2024-12-21 08:34 | P.PNOB_ITS ---
OB - PN: Subj Subjective Date/time seen: 12/21/24 08:34 Interval history: PPD#1 Doing well, pain improving Voiding without issue Tolerating general diet Patient comments: no complaints, pain well controlled and tolerating diet OB - PN: Obj Data Labs 12/20/24 04:00 OB - PN A/P Plan day: 2 Plan: routine care and discharge home Time Spent With Patient Time: Total time spent is greater than 50% in coordination of care (as documented) at patient's floor/unit and/or counseling patient: Exam 2 Const: General: comfortable and no acute distress Resp: Effort & Inspection: normal respiratory effort Auscultation: no rales, no rhonchi and no wheezes Cardio: Rate: regular rate Heart sounds: no click, no murmurs and no rubs GI: GI Palp: Yes Soft to palpation and No Tenderness to palpation present (GI) Auscultation: normal bowel sounds Extrem: General: normal to inspection, no pedal edema and no calf tenderness
--- NOTE | 2024-12-21 08:38 | P.DS_ITS ---
DS: Admitting Diagnosis Discharge Date 12/21/2024 Admitting Diagnosis Term DS: Discharge Diagnosis Discharge Diagnosis (1) Term delivered: Code(s): O80 - Encounter for full-term uncomplicated delivery Status: Acute OB - DS: Summary OB Procedures : None OB Procedures Intrapartum: Spontaneous Vag Delivery OB Procedures: : None Peripartum Data Laceration Description: Perineal - 2nd Degree Episiotomy description: None Time Spent with Patient Time attestation: Total time spent providing and/or coordinating discharge services: Discharge Plan Discharge Discharging Clinician: Niranjan Leroy Patient Disposition: Home Activity: pelvic rest Diet: regular Patient Instructions: Antibiotic Form Patient Language: Macedonian Stand Alone Forms: General Discharge Information Follow-up/Referrals: Niranjan Leroy MD [Physician] - Discharge Medications: Continued PNV cmb#95-ferrous fumarate-FA [] 28 mg iron- 800 mcg tablet 1 tablet PO DAILY docusate sodium [Colace] 100 mg capsule 100 mg PO DAILY Date of admission: 12/18/24 23:17 Primary Care Provider: PHYSICIAN,CHAIR LIFT OPERATOR Admitting Provider: John Anderson Attending physician on admission: John Anderson Condition: Stable
--- NOTE | 2024-12-21 10:00 | PC.NURSE ---
Patient viewed the discharge video Mother & Baby Care, The First Two Weeks. Patient was given the opportunity and encouraged to ask questions. Patient verbalized understanding of information shared and has been given the mother/baby guide for home reference.
--- NOTE | 2024-12-21 12:00 | PC.NURSE ---
Consulted with mother concerning needs and she shared her ability to independently latch infant optimally without pain, baby is favoring her left breast in cross cradle. CLC RN recommended she try the football position on the right breast using her pillow and she was able to latch baby but not maintain at this time. Baby had just fed prior and was not interested right now. Mother stated that using the pillow she felt more comfortable with the football position, she is still using her breast pump if baby does not effectively feed at the breast as well as supplementing with formula as needed. Mother is feeding appropriately for growth of infant and understands stimulating infant to eat if needed. has had appropriate feedings in the last 24 hours meets the outcomes for weight, output, blood sugar and jaundice at this time. Reinforced understanding of milk production, transition of milk, signs of adequate intake, transition of stool, prevention/relief of engorgement, plugged ducts, mastitis, responsive watching for feeding cues, the different methods of stimulating infant to breastfeed 1-3 hours after the start of the last feeding, community resources, and when to call a provider using the resource of the feeding sheet along with the mom and baby guide. Mother voiced understanding of the information shared, is confident to continue effectively her infant at home, when to call for assistance, denies any additional assistance or education at this time. Reported to the Primary RN.
[2024-12-21] MEDS: ACETAMINOPHEN 325 MG TABLET 650 MG PO (14:18)
[2024-12-22 09:37] VITALS: BP 141/86; PULSE 88; RESP 18; TEMP 37; O2SAT 100
== END 2024-12-21 18:40 | disposition home or self-care (01) | DRG 807 ==
LOC: ANHLDR 12-19 00:40 → ANHOB2 12-21 08:41 → ANHLDR 12-22 08:25 → ANHOB2 12-22 08:25
PROVIDERS: Admitting Provider Obstetrics & Gynecology; Referring Provider Advanced Practice Midwife; Visit Provider Obstetrics & Gynecology
DX: O70.1 Second degree perineal laceration during delivery (principal); Z37.0 Single live birth; Z3A.39 39 weeks gestation of pregnancy
CPT/HCPCS: 36415; 85014; 85018; 85025; 86593; 86703; 86850; 86900; 86901; A9270; G0432; J0290; J2590; J2795; J7120

== ENCOUNTER 2024-12-28 10:15 | Observation (INO) | payer OTHER, SELFPAY ==
[2024-12-28] VITALS (10 sets, daily range): BP systolic 138–145; BP diastolic 71–82; PULSE 66–77; O2SAT 98–100; BMI 36.6
--- NOTE | 2024-12-28 10:36 | PC.NURSE ---
Called Dr. Leroy to let him know pt. had arrived from [facility]. Has elevated BP but vitals are otherwise stable. Pt. had labs drawn and was given 1L NS. Pt. had a vaginal exam by ER MD and had clots removed, pt. noticed bleeding has decreased since clots removed. Read US results off to Dr. Leroy. Dr. Leroy would like pt. to be dc from [facility] to his office so he can assess patient and schedule her for d and c tomorrow as patient ate on the way here and is not currently hemorrhaging.
--- NOTE | 2024-12-28 10:49 | OBADM ---
This patient, Gerri Loaiza, admitted to the OB Post 116 for observation. Patient/family oriented to hospital policies and general routines including ID bracelet, bed and alarms, visiting hours, pain management, procedures, bathroom and other care routines, personal items, smoking policy, room service/diet, and visiting hours. Patient/Family are encouraged to report perceived risks to care and to ask questions if they do not understand what they are told or what they should do.
--- NOTE | 2025-01-21 21:41 | PM.OBTRLD ---
OB - Triage/Final Diagnosis Visit Information Comments/Additional reasons for admission: I have assessed the risk for this patient, Gerri Loaiza, and determined that she would benefit from observation care. Final Diagnosis (1) Retained placenta: Code(s): O73.0 - Retained placenta without hemorrhage Status: Acute
== END 2024-12-28 10:59 | disposition home or self-care (01) ==
PROVIDERS: Admitting Provider Obstetrics & Gynecology; Visit Provider Obstetrics & Gynecology
DX: O73.0 Retained placenta without hemorrhage (principal)
CPT/HCPCS: G0378; G0379

== ENCOUNTER 2024-12-29 00:45 | Day surgery (SDC) | payer OTHER, SELFPAY ==
[2024-12-28 13:27] VITALS: BMI 31.6
--- NOTE | 2024-12-28 13:35 | PC.NURSE ---
Report to the Outpatient Waiting Room, entrance under the green pavilion located off [facility], at time _0830_ on date _12/29/24. Planned Procedure Time: _1030__.? Time changes happen often and if your time is changed the preop area will call you the afternoon before. - You and your visitor will be asked to self-screen and do not enter if you have any COVID symptoms. Please call surgeon if you need to reschedule. - A mask is optional within the hospital at this time. Patients may have clear liquids (water, carbonated beverages, clear teas, apple juice) until 3 hours prior to surgery with a maximum of 20 ounces. - No food from midnight until time of surgery and no smoking, or chewing tobacco (or any form of nicotine). No chewing gum, candy or mints. - Infants may have breast milk until 4 hours before surgery, infant formula 6 hours prior to surgery. - Children will be allowed to drink immediately following surgery.? If applicable, please bring a bottle or sippy cup to assist with drinking. Juice, water, soda, and popsicles are readily available.? For infants on formula, please bring formula the day of surgery.? Pacifiers are allowed. Take only the following medications with a SIP of water on the morning of surgery: ____NONE DO NOT STOP ANY OF YOUR OTHER PRESCRIPTION MEDICATIONS PRIOR TO SURGERY EXCEPT THE FOLLOWING Hold all vitamins and supplements for 3 days per anesthesiologist. Medications to discontinue per physician Date to take last dose Please no make-up, nail syrian, hairspray, perfume, deodorant, or body powder the day of surgery.? No jewelry (including any body piercings) or valuables the day of surgery, leave them at home.? Please take a shower or bath the night before, or the morning of, surgery with an antibacterial soap.? Wear comfortable, loose fitting clothing.? Children are encouraged to wear pajamas. - Jewelry must be removed prior to entering the operating room.? Rings and piercings that are not removed may be cut off. - The hospital will not accept responsibility for valuables.? - Please leave all valuables, including medications, at home the day of surgery. If you are going home after surgery, a licensed crew truck driver must drive you home.? - NO public transportation without another adult if you receive anesthesia. - We recommend that an adult stay with you for 24 hours following discharge. - We also recommend that you do not drive, make important decision, drink alcoholic beverages, or take any drugs that were not prescribed by your health care provider for at least 24 hours after your discharge time. For Pediatric surgeries, we recommend two adults accompany the child home. Follow any additional instructions given to you from your surgeon. Telephone instructions given to _PATIENT__and asked if any additional questions and then verbalized understanding. Patient advised to call surgeon office or pre surgery nurse liaison [phone] if any additional questions.
[2024-12-29 08:35] VITALS: BMI 30.8
--- NOTE | 2024-12-29 08:45 | SUR.PREOP ---
0845- Patient notified of possible delay to procedure start time.
[2024-12-29 09:00] VITALS: BP 131/85; PULSE 82; RESP 18; TEMP 36.9; O2SAT 100
[2024-12-29] MEDS: ACETAMINOPHEN 500 MG TABLET 1000 MG PO (09:06)
--- NOTE | 2024-12-29 11:24 | WPDANESEPPF ---
Anes - Initial Pre Proc Eval Procedure: Operation Date: 12/29/24 10:30 Proposed Procedures p Suction Dilation and Curettage - Niranjan Leroy MD Date/Time: 12/29/24 11:24 Surgeon: Niranjan Leroy MD Pre Op Diagnosis: retained placenta Patient Data Age: 29 Gender: F Height: 1.68 m Weight: 86.7 kg Last Vital Signs Temp 36.9 C 12/29/24 09:00 Pulse 82 12/29/24 09:00 Resp 18 12/29/24 09:00 BP 131/85 12/29/24 09:00 Pulse Ox 100 12/29/24 09:00 O2 Del Method Room Air 12/29/24 09:00 Allergies Allergy/AdvReac Type Severity Reaction Status Date / Time No Known Allergies Allergy Verified 12/29/24 09:58 Home Medications ?Medication ?Instructions ?Recorded ?Confirmed ?Type docusate sodium 100 mg capsule 100 mg PO DAILY 11/24/24 12/28/24 History (Colace) vit no.95-ferrous 1 tablet PO DAILY 11/24/24 12/28/24 History fumarate 28 mg-folic acid 800 mcg tablet () Patient hx anesthesia problems: none Family hx anesthesia problems: none Results Review: All pre-operative results and documents have been reviewed as part of the pre-operative evaluation. [facility] Past Medical History Medical History Obesity (BMI 30-39.9) IUP (intrauterine ), incidental Depression Anxiety Family History Family History Grandparent Colon cancer Social History Social History Smoking packs per day: 0.5 Smoking cigarettes per day: 10.0 Years smoked: 12 Smoking pack-years: 6.00 Smoking status: Current every day smoker Tobacco type: cigarettes and e-cigarettes/vaping Second hand tobacco smoke exposure: Yes Additional smoking assessment comments: CURRENT VAPING, STOPPED CIGS 2020 Alcohol intake: current Drinks per week: 5 Alcohol use details: PRIOR TO Substance use: never Do You Feel Safe in your Home?: Yes Lack of Transportation: No Lack of Food: Never True Current Housing: I Have Housing Concerned About Future Housing: No Difficulty Paying Gas/Electric Bills: No Difficulty Paying for Meds: No Currently Unemployed: No Education: High School Diploma/GED Difficulty w/ Childcare or Family Care: No Living arrangements: with family Spiritual care concerns: No Anes - Eval Final PreProcedure Day of Procedure 12/29/24 11:24 Patient weight: overweight Heart: regular rate and rhythm Lungs: clear to auscultation Airway: Mallampati scale class II Neurological: alert and oriented Last oral intake: >/= 8 hours ASA classification: II Emergent: no Anesthetic plan: proceed Anesthesia type and monitoring: general GIVS and standard monitoring Results Review: All pre-operative results and documents have been reviewed as part of the pre-operative evaluation. Informed Consent: The patient's anesthetic plan and its attendant risks and benefits were discussed with the patient/family/POA. Questions were solicited and answers provided to the satisfaction of the patient/family/POA.
--- NOTE | 2024-12-29 11:37 | WPDHPUPDATE1 ---
History and Physical Update Update Date/Time: 12/29/24 11:37 History and Physical has been reviewed, including an updated exam of the patient. There are NO changes in the patient's condition. Risks, benefits, and alternatives have been discussed and questions answered. Patient agrees to proceed with procedure.
--- NOTE | 2024-12-29 12:05 | S_PTH ---
PATIENT: Gerri Loaiza LOC: [facility] U#:[id number] AGE/SX: 29/F ROOM: RE12/29/[address]: Niranjan Leroy MD : 1995 BED: DIS: 12/29/2024 SPEC #: [id number] RECD: 12/29/24 13:20 STATUS: DAISY WILSON #: [id number] BRANDON: 12/29/24 12:[address]: Niranjan Leroy DEPT: [facility] Surgical RECD BY: Hilaria Romero ENTERED: 12/29/24 13:20 SP TYPE: Surgical OTHR DR: STACKER STRAIGHTENER PHYSICIAN Tissues: A - RET PLACENTA Procedures: Hematoxylin and Eosin Stain Gross and Microscopic Level 4
[2024-12-29 12:15] VITALS: BP 107/58; PULSE 59; RESP 14; O2SAT 96
[2024-12-29] MEDS: LACTATED RINGERS 1,000 ML 30 ML IV CONT (12:15)
--- NOTE | 2024-12-29 12:20 | P.OP_ITS ---
Procedure Note - Detailed Date of Procedure 12/29/24 Pre-op Diagnosis retained placenta Post-op Diagnosis Same Procedure Performed Suction D&C Surgeon Niranjan Leroy MD Anesthesia MAC Indications retained placenta Findings normal-appearing vulva vagina and cervix to. Moderate amount of products conception and clot within the uterus. 14cm uterus Description of Procedure the patient was taken the operating room. She was prepped and draped in dorsal lithotomy position after induction of mac anesthesia. A speculum was placed in the vagina. Cervix grasped with tenaculum. The cervix was dilated to about 1 cm Using Castro dilators. A 12 Kyrgyz curved curette was used to perform suction D&C. The curette was introduced and vacuum was applied. The curette was removed over all surfaces of the intrauterine cavity multiple times. This was done until all the surfaces were clear and had the familiar grainy texture they can be felt through the instrument. A sharp curette was then used to curettage all the surfaces. The suction cup was then reapplied 1 more time to remove any debris. The instruments were removed. The speculum and tenaculum were removed. The patient tolerated the procedure well. She was taken recovery room stable condition. Estimated Blood Loss 50 Drains No Packing No Pathology Yes Complications No immediate complications Condition Stable Disposition PACU
[2024-12-29 12:45] VITALS: BP 109/56; PULSE 53; RESP 18
[2024-12-29 13:05] VITALS: BP 133/66; PULSE 74; RESP 18
== END 2024-12-29 13:08 | disposition home or self-care (01) ==
PROVIDERS: Visit Provider Obstetrics & Gynecology
PROC: (CPT 59160; principal; 2024-12-29 10:30)
DX: O73.0 Retained placenta without hemorrhage (principal); F32.A Depression, unspecified; F41.9 Anxiety disorder, unspecified; F17.290 Nicotine dependence, other tobacco product, uncomplicated; Z3A.00 Weeks of gestation of pregnancy not specified; Z98.890 Other specified postprocedural states; Z80.0 Family history of malignant neoplasm of digestive organs
CPT/HCPCS: 59160; 88305; A9270; J2003; J2250; J2405; J2704; J3010; J7120